=== PATIENT | female | born 1980 | race Hispanic/Latino ===

== ENCOUNTER 2019-02-11 09:26 | Emergency (ER) | payer MEDICAID, OTHER, SELFPAY ==
[2019-02-11 10:14] LABS: Absolute Lymphocytes (CBC) 0.8 K/uL (0.7-4.9); Basophils % 0.4 % (0-1.3); Eosinophils % 0.5 % (0-4.4); Hematocrit 35.1 % (36.0-45.0); Lymphocytes % 8.6 % (15.3-44.8); MPV 8.1 fL (7.6-11.3); Monocytes % 4.9 % (3.3-12.3); Protime INR 1.19; RBC Red Blood Cell Count 4.13 M/uL (3.86-4.86)
[2019-02-11] MEDS ORDERED: FENTANYL CITR 100 MCG/2 ML ONE (10:20)
[2019-02-11 10:28] LABS: BUN Blood Urea Nitrogen 9 mg/dL (7-18); Bicarbonate 29 mmol/L (21-32); Glucose Level 112 mg/dL (74-106); Potassium 3.5 mmol/L (3.5-5.1); Sodium Level 138 mmol/L (136-145)
--- NOTE | 2019-02-11 10:54 | RAD REPORT ---
EXAM DESCRIPTION: US - Extremity Venous Uni Ltd - 02/11/2019 10:36 am CLINICAL HISTORY: Leg pain and swelling COMPARISON: None. TECHNIQUE: Real-time sonographic evaluation of the left lower extremity deep venous system was perfo rmed. FINDINGS: Normal compressibility, flow augmentation, phasic flow and spontaneous flow are identified in the left lower extremity common femoral, superficial femoral, popliteal and posterior tibial vein s. No intraluminal filling defects seen. Prominent groin and upper thigh lymph nodes are present. In the anterior soft tissues tibial level th ere is a 4 x 2.5 x 2 centimeter heterogeneous mass. No trauma history was noted. This is probably a h ematoma. Abscess is not currently suspected. IMPRESSION: No DVT in the left lower extremity. A 4 centimeter oval heterogeneous hypoechoic mass anterior to the tibia is favored to be a hematoma. Correlation is needed with any trauma history or anticoagulation history. Abscess is not currently sylvester spected. Follow-up can be obtained as warranted.
[2019-02-11 12:49] LABS: Blood Morphology Comment NOT SEEN (NOT SEEN); Platelet Estimate ADEQ; Urine White Blood Cell Casts OK
[2019-02-11] MEDS ORDERED: CLINDAMYCIN 900MG/D5W 900 MG/50 ML IVPB IV ONE (13:42)
[2019-02-11 15:01] LABS: Urine Blood 2+ (NEG); Urine Glucose NEGATIVE (NEG); Urine Protein 2+ (NEG); Urine Specific Gravity 1.025 (1.005-1.030)
--- NOTE | 2019-02-11 15:16 | ER ---
Nurse's Notes [facility] [place] Name: Kandis Juan Age: 38 yrs Sex: Female : 1980 Arrival Date: 02/11/2019 Time: 09:33 Bed 7 Private MD: Diagnosis: Cellulitis of left lower limb;Localized swelling, mass and lump, left lower limb-hematoma Presentation: 02/11 09:34 Presenting complaint: EMS states: brought by [facility] with complaints of L leg pain hj and swelling, that started last Sunday; denies trauma, denies exposure to water and poison yordy; reports fever; BP- 102/72; HR-86; O2- 98% RA;. Transition of care: patient was not received from another setting of care. Onset of symptoms was February 11, 2019. Risk Assessment: Do you want to hurt yourself or someone else? Patient reports no desire to harm self or others. Initial Sepsis Screen: Does the patient meet any 2 criteria? No. Patient's initial sepsis screen is negative. Does the patient have a suspected source of infection? Yes: Skin breakdown/wound. Care prior to arrival: None. 09:34 Method Of Arrival: EMS: [facility] 09:34 Acuity: RONNY 3 hj Triage Assessment: 09:38 General: Appears in no apparent distress. uncomfortable, Behavior is calm, cooperative, hj appropriate for age. Pain: Complains of pain in left leg. 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 - Social history:: Smoking status: Patient uses tobacco products, Patient uses alcohol. - Ebola Screening: : Patient negative for fever greater than or equal to 101.5 degrees Fahrenheit, and additional compatible Ebola Virus Disease symptoms Patient denies exposure to infectious person Patient denies travel to an Ebola-affected area in the 21 days before illness onset. Screenin:38 Abuse screen: Denies threats or abuse. Denies injuries from another. Nutritional hj screening: No deficits noted. Tuberculosis screening: No symptoms or risk factors identified. Fall Risk None identified. Assessment: 09:39 General: Appears in no apparent distress. uncomfortable, Behavior is calm, cooperative, hj appropriate for age. Pain: Complains of pain in left leg. Neuro: Level of Consciousness is awake, alert, obeys commands, Oriented to person, place, time, situation, Appropriate for age. Cardiovascular: Capillary refill < 3 seconds Patient's skin is warm and dry. Respiratory: Airway is patent Respiratory effort is even, unlabored, Respiratory pattern is regular, symmetrical. GI: No signs and/or symptoms were reported involving the gastrointestinal system. : No signs and/or symptoms were reported regarding the genitourinary system. EENT: No signs and/or symptoms were reported regarding the EENT system. Derm: Skin is intact, Skin is pink, warm \T\ dry. red, Rash noted that is. Musculoskeletal: No signs and/or symptoms reported regarding the musculoskeletal system. 10:30 Reassessment: Patient and/or family updated on plan of care and expected duration. Pain hj level reassessed. Patient is alert, oriented x 3, equal unlabored respirations, skin warm/dry/pink. awaiting results and POC;. 11:30 Reassessment: Patient and/or family updated on plan of care and expected duration. Pain hj level reassessed. Patient is alert, oriented x 3, equal unlabored respirations, skin warm/dry/pink. Patient states feeling better. Patient states symptoms have improved. 12:30 Reassessment: Patient and/or family updated on plan of care and expected duration. Pain hj level reassessed. Patient is alert, oriented x 3, equal unlabored respirations, skin warm/dry/pink. awaiting POC;. 13:34 Reassessment: Patient and/or family updated on plan of care and expected duration. Pain hj level reassessed. Patient is alert, oriented x 3, equal unlabored respirations, skin warm/dry/pink. antibiotics on going; awaiting POC:. 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 6 in. (167.64 cm); Pain 7/10; 10:49 BP 110 / 72; Pulse 75; Resp 18; Pulse Ox 99% on R/A; hj 11:28 BP 112 / 70; Pulse 72; Resp 18; Pulse Ox 97% on R/A; hj 13:34 BP 118 / 70; Pulse 72; Resp 18; Pulse Ox 100% on R/A; hj 09:36 Body Mass Index 48.42 (136.08 kg, 167.64 cm) hj ED Course: 09:33 Patient arrived in ED. as 09:33 Adelfo Harvey, RN is Primary Nurse. hj 09:36 Triage completed. hj 09:37 Wellington Kern PA is PHCP. cp 09:37 Wellington Ren MD is Attending Physician. cp 09:38 Arm band placed on right wrist. hj 09:39 Patient has correct armband on for positive identification. Bed in low position. Call hj light in reach. Side rails up X 1. 10:00 Inserted saline lock: 22 gauge in right antecubital area, using aseptic technique. hj Blood collected. 10:00 Initial lab(s) drawn, by me, sent to lab. First set of blood cultures drawn by me. hj 13:43 Michele Sandoval MD is Referral Physician. cp 14:10 No provider procedures requiring assistance completed. IV discontinued, intact, hj bleeding controlled, No redness/swelling at site. Pressure dressing applied. Administered Medications: 10:00 Drug: fentaNYL (PF) 25 mcg Route: IVP; Site: right antecubital; hj 10:30 Follow up: Response: No adverse reaction; Pain is decreased hj 13:30 Drug: Clindamycin 900 mg Route: IVPB; Infused Over: 30 mins; Site: right antecubital; hj 14:05 Follow up: IV Status: Completed infusion; IV Intake: 50ml hj Intake: 14:05 IV: 50ml; Total: 50ml. hj Outcome: 13:44 Discharge ordered by . cp 14:11 Discharged to home ambulatory. hj 14:11 Condition: stable 14:11 Discharge instructions given to patient, Instructed on discharge instructions, follow up and referral plans. medication usage, Demonstrated understanding of instructions, follow-up care, medications, Prescriptions given X 4. 14:15 Patient left the ED. hj Signatures: ScottyElvira Henry RN RN hj Wellington Kern PA PA cp Corrections: (The following items were deleted from the chart) 09:39 09:36 BP 125 / 50; Pulse 90bpm; Resp 18bpm; Pulse Ox 98% RA; Temp 99.6F Oral; 136.08 hj kg; Height 5 ft. 6 in.; BMI: 48.4; Pain 7/10; hj
--- NOTE | 2019-02-11 15:16 | EDPHYS ---
Physician Documentation [facility] [place] Name: Kandis Juan Age: 38 yrs Sex: Female : 1980 Arrival Date: 02/11/2019 Time: 09:33 Bed 7 Private MD: ED Physician Wellington Ren HPI: 02/11 09:50 This 38 yrs old Female presents to ER via EMS with complaints of left leg pain.cp 09:50 The patient presents with pain, that is acute, swelling, tenderness. The complaints cp affect the left leg. Onset: The symptoms/episode began/occurred 3 day(s) ago. Associated signs and symptoms: Pertinent positives: calf tenderness, fever. Treatment prior to arrival includes: no previous treatment. 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 - Social history:: Smoking status: Patient uses tobacco products, Patient uses alcohol. - Ebola Screening: : Patient negative for fever greater than or equal to 101.5 degrees Fahrenheit, and additional compatible Ebola Virus Disease symptoms Patient denies exposure to infectious person Patient denies travel to an Ebola-affected area in the 21 days before illness onset. ROS: 10:00 Constitutional: Positive for low grade temp, Negative for body aches, chills, poor PO cp intake. 10:00 Eyes: Negative for injury, pain, redness, and discharge. cp 10:00 ENT: Negative for drainage from ear(s), ear pain, difficulty swallowing, difficulty handling secretions. 10:00 Cardiovascular: Negative for chest pain, palpitations. 10:00 Respiratory: Negative for cough, shortness of breath, wheezing. 10:00 Abdomen/GI: Negative for abdominal pain, nausea, vomiting, and diarrhea. 10:00 MS/extremity: Positive for erythema, pain, swelling, tenderness, of the left leg, Negative for injury or acute deformity, decreased range of motion, paresthesias. 10:00 Neuro: Negative for altered mental status, headache, weakness. 10:00 All other systems are negative. Exam: 10:10 Constitutional: The patient appears in no acute distress, alert, awake, cp non-diaphoretic, non-toxic, well developed, well nourished. 10:10 Head/Face: Normocephalic, atraumatic. cp 10:10 Eyes: Periorbital structures: appear normal, Conjunctiva: normal, no exudate, no injection, Sclera: no appreciated abnormality, Lids and lashes: appear normal, bilaterally. 10:10 ENT: External ear(s): are unremarkable, Nose: is normal, Mouth: Lips: moist, Oral mucosa: pink and intact, moist, Posterior pharynx: is normal, airway is patent. 10:10 Chest/axilla: Inspection: normal, Palpation: is normal, no crepitus, no tenderness. 10:10 Cardiovascular: Rate: normal, Rhythm: regular. 10:10 Respiratory: the patient does not display signs of respiratory distress, Respirations: normal, no use of accessory muscles, no retractions, no splinting, no tachypnea, labored breathing, is not present, Breath sounds: are clear throughout, no decreased breath sounds, no stridor, no wheezing. 10:10 Abdomen/GI: Inspection: abdomen appears normal. 10:10 Back: pain, is absent, ROM is normal. 10:10 Musculoskeletal/extremity: Perfusion: the extremity is normally perfused throughout, the left leg Sensation intact. DVT Exam: pain, that is moderate, of the left leg, swelling, that is mild, of the left leg, tenderness, that is moderate, of the left leg, erythema, that is moderate, of the left leg, increased warmth, that is moderate, of the left leg. 10:10 Neuro: Orientation: to person, place \T\ time. Mentation: is normal. Vital Signs: 09:36 BP 125 / 50; Pulse 85; Resp 18; Temp 99.6(O); Pulse Ox 98% on R/A; Weight 136.08 kg; hj Height 5 ft. 6 in. (167.64 cm); Pain 7/10; 10:49 BP 110 / 72; Pulse 75; Resp 18; Pulse Ox 99% on R/A; hj 11:28 BP 112 / 70; Pulse 72; Resp 18; Pulse Ox 97% on R/A; hj 13:34 BP 118 / 70; Pulse 72; Resp 18; Pulse Ox 100% on R/A; hj 09:36 Body Mass Index 48.42 (136.08 kg, 167.64 cm) hj MDM: 09:37 Patient medically screened. cp 10:00 Differential diagnosis: cellulitis, sepsis, DVT, abscess. cp 13:43 Data reviewed: vital signs, nurses notes, lab test result(s), radiologic studies, cp ultrasound. 13:43 Counseling: I had a detailed discussion with the patient and/or guardian regarding: the cp historical points, exam findings, and any diagnostic results supporting the discharge/admit diagnosis, lab results, radiology results, the need for outpatient follow up, a family practitioner, to return to the emergency department if symptoms worsen or persist or if there are any questions or concerns that arise at home. Response to treatment: the patient's symptoms have mildly improved after treatment, and as a result, I will discharge patient. 02/11 11:13 Order name: Procalcitonin; Complete Time: 13:04 [facility] 02/11 11:14 Order name: Basic Metabolic Panel [facility] 02/11 11:14 Order name: Lactate [facility] 02/11 11:14 Order name: CBC with Automated Diff; Complete Time: 13:04 [facility] 02/11 11:14 Order name: Protime (+INR) [facility] 02/11 11:14 Order name: Blood Culture [facility] 02/11 11:14 Order name: Blood Culture [facility] 02/11 12:53 Order name: CBC Smear Scan [facility] 02/11 09:47 Order name: US Extremity Venous Unilateral Ltd 02/11 09:47 Order name: Urine Dipstick-Ancillary (obtain specimen); Complete Time: 11:28 02/11 09:47 Order name: Urine Test (obtain specimen); Complete Time: 11:28 02/11 11:13 Order name: Extremity Venous Uni Ltd; Complete Time: 13:04 [facility] 02/11 13:20 Order name: Urine Dipstick--Ancillary (enter results) ms Administered Medications: 10:00 Drug: fentaNYL (PF) 25 mcg Route: IVP; Site: right antecubital; hj 10:30 Follow up: Response: No adverse reaction; Pain is decreased hj 13:30 Drug: Clindamycin 900 mg Route: IVPB; Infused Over: 30 mins; Site: right antecubital; hj 14:05 Follow up: IV Status: Completed infusion; IV Intake: 50ml hj Disposition: 02/11/19 13:44 Discharged to Home. Impression: Cellulitis of left lower limb, Localized swelling, mass and lump, left lower limb - hematoma. - Condition is Stable. - Discharge Instructions: Cellulitis, Adult, Hematoma. - Prescriptions for Clindamycin HCl 300 mg Oral Capsule - take 1 capsule by ORAL route every 6 hours for 10 days; 40 capsule. Ibuprofen 800 mg Oral Tablet - take 1 tablet by ORAL route every 8 hours As needed take with food; 30 tablet. Bactrim DS 800- 160 mg Oral Tablet - take 1 tablet by ORAL route every 12 hours for 10 days; 20 tablet. Tylenol- Codeine #3 300-30 mg Oral Tablet - take 2 tablets by ORAL route every 6 hours As needed; 15 tablet. - Medication Reconciliation Form, Thank You Letter, Antibiotic Education, Prescription Opioid Use form. - Follow up: Michele Sandoval MD; When: 2 - 3 days; Reason: Recheck today's complaints. - Problem is new. - Symptoms have improved. - Notes: Wrap with Kerlix and Craig Bandage, elevate extremity Addendum: 02/12/2019 16:34 Co-signature as Attending Physician, Wellington Ren MD I agree with the assessment and c retana plan of care. Signatures: Dispatcher [employer] Wellington Goldstein MD MD cha Joaquin, Henry, RN RN Wellington Rowan PA PA cp Corrections: (The following items were deleted from the chart) 02/11 12:35 11:15 CBC+H.LAB.BRZ ordered. [facility] 12:35 11:15 PROTIME (+INR)+COAG.LAB.BRZ ordered. [facility] 14:15 13:44 02/11/2019 13:44 Discharged to Home. Impression: Cellulitis of left lower limb; hj Localized swelling, mass and lump, left lower limb - hematoma. Condition is Stable. Forms are Medication Reconciliation Form, Thank You Letter, Antibiotic Education, Prescription Opioid Use. Follow up: Michele Sandoval; When: 2 - 3 days; Reason: Recheck today's complaints. Problem is new. Symptoms have improved. cp
== END 2019-02-11 14:15 | disposition home or self-care (01) ==
LOC: ER 09:26
DX: L03.116 Cellulitis of left lower limb (principal); S80.12XA Contusion of left lower leg, initial encounter; I10 Essential (primary) hypertension; Z72.0 Tobacco use
CPT/HCPCS: 36415; 80048; 81003; 83605; 84145; 85025; 85610; 87040; 93971; 96365; 96375; 99284; J3010

== ENCOUNTER 2019-02-15 13:31 | Emergency (ER) | payer SELFPAY ==
[2019-02-15 14:54] LABS: Absolute Lymphocytes (CBC) 1.9 K/uL (0.7-4.9); Basophils % 0.9 % (0-1.3); Eosinophils % 1.5 % (0-4.4); Hematocrit 33.6 % (36.0-45.0); Lymphocytes % 27.8 % (15.3-44.8); MPV 7.9 fL (7.6-11.3); Monocytes % 4.6 % (3.3-12.3); RBC Red Blood Cell Count 3.93 M/uL (3.86-4.86)
[2019-02-15 15:01] LABS: BUN Blood Urea Nitrogen 15 mg/dL (7-18); Bicarbonate 31 mmol/L (21-32); Glucose Level 81 mg/dL (74-106); Potassium 3.9 mmol/L (3.5-5.1); Sodium Level 141 mmol/L (136-145)
[2019-02-15 15:52] LABS: Blood Morphology Comment NOT SEEN (NOT SEEN); Platelet Estimate INCR; Urine White Blood Cell Casts OK
--- NOTE | 2019-02-15 16:19 | EDPHYS ---
Physician Documentation [facility] Name: Kandis Juan Age: 38 yrs Sex: Female : 1980 Arrival Date: 02/15/2019 Time: 13:33 Bed 26 Private MD: ED Physician Rubin Weir HPI: 02/15 14:52 This 38 yrs old Female presents to ER via Ambulatory with complaints of Feet rn Swelling. 14:52 The patient presents with cellulitis of the left leg. Description: erythematous, rn swollen. Onset: The symptoms/episode began/occurred 1 week(s) ago. Possible cause(s): unknown. Modifying factors: the symptoms are alleviated by nothing, the symptoms are aggravated by touching. The patient has not experienced similar symptoms in the past. The patient has been recently seen by a physician:. 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 - Social history:: Smoking status: . - Ebola Screening: : Patient denies travel to an Ebola-affected area in the 21 days before illness onset. - Family history:: not pertinent. - Hospitalizations: : No recent hospitalization is reported. ROS: 14:53 Constitutional: Negative for fever, chills, and weight loss, Eyes: Negative for injury, rn pain, redness, and discharge, Cardiovascular: Negative for chest pain, palpitations, and edema, Respiratory: Negative for shortness of breath, cough, wheezing, and pleuritic chest pain, Abdomen/GI: Negative for abdominal pain, nausea, vomiting, diarrhea, and constipation, MS/Extremity: Negative for injury Skin: + erythema and swelling Neuro: Negative for headache, weakness, numbness, tingling, and seizure. Exam: 14:53 Constitutional: Overweight female, no acute distress Head/Face: Normocephalic, rn atraumatic. Eyes: Pupils equal round and reactive to light, extra-ocular motions intact. Lids and lashes normal. Conjunctiva and sclera are non-icteric and not injected. Cornea within normal limits. Periorbital areas with no swelling, redness, or edema. ENT: MMM Cardiovascular: Regular rate and rhythm. No pulse deficits. Respiratory: No increased work of breathing, no retractions or nasal flaring. Abdomen/GI: soft, non-tender Skin: Warm, dry, + erythema to LLE MS/ Extremity: Pulses equal, no cyanosis. LLE with swelling and increased circumference compared to RLE, areas of erythema and firmness, no fluctuance. No open wounds or bleeding. Vital Signs: 13:37 BP 109 / 68; Pulse 73; Resp 17; Temp 97.8(TE); Pulse Ox 98% on R/A; Weight 136.08 kg tw2 (R); Height 5 ft. 6 in. (167.64 cm); Pain 3/10; 16:15 BP 128 / 87; Pulse 74; Resp 16; Pulse Ox 98% on R/A; la1 13:37 Body Mass Index 48.42 (136.08 kg, 167.64 cm) tw2 MDM: 14:03 Patient medically screened. rn 16:16 Differential diagnosis: cellulitis. Data reviewed: vital signs, nurses notes, lab test rn result(s), radiologic studies, ultrasound, and as a result, I will discharge patient. Counseling: I had a detailed discussion with the patient and/or guardian regarding: the historical points, exam findings, and any diagnostic results supporting the discharge/admit diagnosis, lab results, radiology results, the need for outpatient follow up, to return to the emergency department if symptoms worsen or persist or if there are any questions or concerns that arise at home. Special discussion: I discussed with the patient/guardian in detail that at this point there is no indication for admission to the hospital. It is understood, however, that if the symptoms persist or worsen the patient needs to return immediately for re-evaluation. Based on the history and exam findings, there is no indication for further emergent testing or inpatient evaluation. I discussed with the patient/guardian the need to see the primary care provider for further evaluation of the symptoms. ED course: U/S shows smaller fluid collection, no abscess, afebrile, normal WBC, neg procalcitonin, normal vitals, will dc home with bactrim/doxy, both on $4 list and attainable, hard to call failure of outpt therapy if did not fill prescription in first place. . 07/13 14:25 Order name: CBC with Diff; Complete Time: 15:57 rn 02/15 14:25 Order name: Basic Metabolic Panel; Complete Time: 15:42 rn 02/15 14:25 Order name: Blood Culture Adult (2) rn 02/15 14:25 Order name: Procalcitonin; Complete Time: 15:42 rn 02/15 14:26 Order name: US Extrmty Nonvasular Limited rn 02/15 15:52 Order name: CBC Smear Scan; Complete Time: 15:57 EDMS 02/15 14:25 Order name: IV Start; Complete Time: 14:51 rn Administered Medications: 16:20 Drug: Bactrim (160 mg-800 mg (DS) 1 tablet Route: PO; la1 16:20 Follow up: Response: Medication administered at discharge. la1 16:20 Drug: Doxycycline 100 mg Route: PO; la1 16:20 Follow up: Response: Medication administered at discharge. la1 Disposition: 02/15/19 16:18 Discharged to Home. Impression: Cellulitis of left lower limb. - Condition is Stable. - Discharge Instructions: Cellulitis, Adult. - Prescriptions for Bactrim DS 800- 160 mg Oral Tablet - take 1 tablet by ORAL route every 12 hours for 10 days; 20 tablet. Doxycycline Monohydrate 100 mg Oral Tablet - take 1 tablet by ORAL route every 12 hours for 10 days; 20 tablet. - Medication Reconciliation Form, Thank You Letter, Antibiotic Education, Prescription Opioid Use form. - Follow up: Private Physician; When: As needed; Reason: Recheck today's complaints, Re-evaluation by your physician. - Problem is an ongoing problem. - Symptoms have improved. Signatures: Dispatcher [employer] EDTX Rubin Weir MD MD rn Attema, Lee, RN RN la1 Mei Gould RN RN tw2 Corrections: (The following items were deleted from the chart) 16:22 16:18 02/15/2019 16:18 Discharged to Home. Impression: Cellulitis of left lower limb. la1 Condition is Stable. Forms are Medication Reconciliation Form, Thank You Letter, Antibiotic Education, Prescription Opioid Use. Follow up: Private Physician; When: As needed; Reason: Recheck today's complaints, Re-evaluation by your physician. Problem is an ongoing problem. Symptoms have improved. rn
--- NOTE | 2019-02-15 16:19 | ER ---
Nurse's Notes [facility] Name: Kandis Juan Age: 38 yrs Sex: Female : 1980 Arrival Date: 02/15/2019 Time: 13:33 Bed 26 Private MD: Diagnosis: Cellulitis of left lower limb Presentation: 02/15 13:36 Presenting complaint: Patient states: i was here 5 days ago and i had cellulitis on my tw2 LEFT foot and the pharmacy [place], there is redness up my calf. Transition of care: patient was not received from another setting of care. Onset of symptoms was February 15, 2019. Risk Assessment: Do you want to hurt yourself or someone else? Patient reports no desire to harm self or others. Initial Sepsis Screen: Does the patient meet any 2 criteria? No. Patient's initial sepsis screen is negative. Does the patient have a suspected source of infection? No. Patient's initial sepsis screen is negative. Care prior to arrival: None. 13:36 Method Of Arrival: Ambulatory tw2 13:36 Acuity: RONNY 3 tw2 Triage Assessment: 13:38 General: Appears in no apparent distress. obese, Behavior is calm, cooperative, tw2 appropriate for age. Pain: Complains of pain in left foot. 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 - Social history:: Smoking status: . - Ebola Screening: : Patient denies travel to an Ebola-affected area in the 21 days before illness onset. - Family history:: not pertinent. - Hospitalizations: : No recent hospitalization is reported. Screenin:38 Abuse screen: Denies threats or abuse. Nutritional screening: No deficits noted. tw2 Tuberculosis screening: No symptoms or risk factors identified. Fall Risk None identified. Assessment: 14:01 General: Appears in no apparent distress. Behavior is calm, cooperative. Pain: la1 Complains of pain in left leg. Neuro: Level of Consciousness is awake, alert, obeys commands, Oriented to person, place, time, situation. Cardiovascular: Capillary refill < 3 seconds Patient's skin is warm and dry. Respiratory: Airway is patent Respiratory effort is even, unlabored, Respiratory pattern is regular, symmetrical, Breath sounds are clear bilaterally. GI: No signs and/or symptoms were reported involving the gastrointestinal system. : No signs and/or symptoms were reported regarding the genitourinary system. Derm: cellulitic rash and swelling to left lower extremity does not extend above the knee, worse in the posterior calf area. Pt states she has not gotten any of her RX filled because they do not take her out of state medicaid but only checked at one pharmacy. Musculoskeletal: Circulation, motion, and sensation intact. Capillary refill < 3 seconds, Swelling present in lateral aspect of left calf, left calf, medial aspect of left calf and left aparicio. 15:46 Reassessment: Patient appears in no apparent distress at this time. No changes from la1 previously documented assessment. Patient and/or family updated on plan of care and expected duration. Pain level reassessed. Patient is alert, oriented x 3, equal unlabored respirations, skin warm/dry/pink. 16:15 Reassessment: Patient appears in no apparent distress at this time. No changes from la1 previously documented assessment. Patient and/or family updated on plan of care and expected duration. Pain level reassessed. Patient is alert, oriented x 3, equal unlabored respirations, skin warm/dry/pink. Vital Signs: 13:37 BP 109 / 68; Pulse 73; Resp 17; Temp 97.8(TE); Pulse Ox 98% on R/A; Weight 136.08 kg tw2 (R); Height 5 ft. 6 in. (167.64 cm); Pain 3/10; 16:15 BP 128 / 87; Pulse 74; Resp 16; Pulse Ox 98% on R/A; la1 13:37 Body Mass Index 48.42 (136.08 kg, 167.64 cm) tw2 ED Course: 13:33 Patient arrived in ED. as 13:37 Triage completed. tw2 13:37 Arm band placed on. tw2 13:39 Anton Kendall RN is Primary Nurse. la1 14:03 Rubin Weir MD is Attending Physician. rn 14:03 Placed in gown. Bed in low position. Call light in reach. la1 15:00 Second set of blood cultures drawn by me. lt1 15:20 Ultrasound completed. Patient tolerated well. Notified ED Physician latisha. sg3 15:47 US Extrmty Nonvasular Limited In Process Unspecified. EDMS 16:15 No provider procedures requiring assistance completed. IV discontinued, intact, la1 bleeding controlled, No redness/swelling at site. Pressure dressing applied. Administered Medications: 16:20 Drug: Bactrim (160 mg-800 mg (DS) 1 tablet Route: PO; la1 16:20 Follow up: Response: Medication administered at discharge. la1 16:20 Drug: Doxycycline 100 mg Route: PO; la1 16:20 Follow up: Response: Medication administered at discharge. la1 Outcome: 16:18 Discharge ordered by MD. rn 16:22 Discharged to home ambulatory. la1 16:22 Condition: stable 16:22 Discharge instructions given to patient, Instructed on discharge instructions, follow up and referral plans. medication usage, Demonstrated understanding of instructions, follow-up care, medications, Prescriptions given X 2. 16:22 Patient left the ED. la1 Signatures: Dispatcher [employer] Elvira Antonio Roman, MD MD rn Attema, Lee RN RN la1 Mei Gould RN RN tw2 Meghana Montes sg3 Valeria Cardenas lt1 Corrections: (The following items were deleted from the chart) 13:39 13:36 Presenting complaint: Patient states: i was here 5 days ago and i had cellulitis tw2 on my LEFT foot and the pharmacy wouldn't [place] tw2
[2019-02-15] MEDS ORDERED: SMZ./TMP. 800/160 MG TABLET ONE (16:34)
[2019-02-15] MEDS ORDERED: DOXYCYCLINE 100 MG CAP PO ONE (16:34)
--- NOTE | 2019-02-15 16:41 | RAD REPORT ---
EXAM DESCRIPTION: US - Extremity Nonvascular Limited - 02/15/2019 3:47 pm CLINICAL HISTORY: LLE swelling, firm, eval for abscess COMPARISON: Extremity Venous Uni Ltd dated 02/11/2019 TECHNIQUE: Real-time sonographic evaluation of the area of interest was performed. FINDINGS: Complex, heterogenous subcutaneous lesion is identified anterior to the tibia the lower le g measuring 2.7 x 1.7 cm. This appears slightly decreased since the comparative study which time it m easured 4.3 x 1.4 x 2.6 cm. Primary differential considerations include focal hematoma and abscess. H ematoma is favored given the well demarcated margins and mild diminishment in size, however sonograph y cannot reliably distinguish the two entities.
== END 2019-02-15 16:22 | disposition home or self-care (01) ==
LOC: ER 13:31
DX: L03.116 Cellulitis of left lower limb (principal); I10 Essential (primary) hypertension
CPT/HCPCS: 36415; 76882; 80048; 84145; 85025; 87040; 99284

== ENCOUNTER 2019-12-16 11:16 | Emergency (ER) | payer SELFPAY ==
[2019-12-16] MEDS ORDERED: MORPHINE 4 MG/ML SYR ONE (13:26)
[2019-12-16] MEDS ORDERED: ONDANSETRON 4 MG/2 ML VIAL ONE (13:27)
[2019-12-16 13:42] LABS: Absolute Lymphocytes (CBC) 1.1 K/uL (0.7-4.9); Basophils % 0.8 % (0-1.3); Hematocrit 37.6 % (36.0-45.0); Lymphocytes % 15.4 % (15.3-44.8); MPV 8.8 fL (7.6-11.3); RBC Red Blood Cell Count 4.36 M/uL (3.86-4.86)
[2019-12-16 13:55] LABS: Urine Blood 3+ (NEG); Urine Glucose NEGATIVE (NEG); Urine Protein 3+ (NEG); Urine Specific Gravity 1.015 (1.005-1.030); Urine pH >8.5 (5.0-7.0)
[2019-12-16 13:57] LABS: Albumin 3.8 g/dL (3.4-5.0); Bilirubin Direct 0.1 mg/dL (0-0.2); Bilirubin Total 0.3 mg/dL (0.2-1.0); Potassium 3.6 mmol/L (3.5-5.1); Protein, Total 8.3 g/dL (6.4-8.2)
--- NOTE | 2019-12-16 14:11 | RAD REPORT ---
EXAM DESCRIPTION: CT - Abdomen Pelvis W Contrast - 12/16/2019 1:52 pm CLINICAL HISTORY: ABD PAIN COMPARISON: CT HEAD SPINE CAP W CONTRAST dated 09/10/2010 TECHNIQUE: Biphasic, helical CT imaging of the abdomen and pelvis was performed following 100 ml non -ionic IV contrast. No oral contrast. All CT scans are performed using dose optimization technique as appropriate and may include automated exposure control or mA/KV adjustment according to patient size. FINDINGS: No suspicious findings in the lung bases. No pericardial thickening or effusion. Liver size is normal. Posterior mid right lobe a 14 millimeter round hypoechoic focus is present. Thi s is not clearly a simple cyst. This finding is not clearly seen on the 2010 study; however, the prot ocol for the prior study does not allow for optimal assessment of liver parenchyma. No other focal li yandy finding. No portal vein abnormality. Splenic size is normal with no focal splenic abnormality. Ac cessory splenic nodule seen. No pancreatic or peripancreatic acute finding. Gallbladder and biliary t ree are also without suspicious finding. Gallstones can be occult on CT imaging. Symmetric renal function is seen with no hydronephrosis or suspicious renal mass. No pyelonephritis o r acute parenchymal process. Urinary bladder is nearly fully collapsed limiting assessment. No large bladder calculi seen. No adrenal abnormalities. Uterus and ovaries show no suspicious findings. No dilated bowel loops or bowel wall thickening. Minimal diverticulosis present in the sigmoid colon. No diverticulitis, appendicitis or other acute GI process seen. No free air, free fluid or inflammat ory stranding. No hernia, mass or bulky lymphadenopathy. No acute bony findings. Schmorl's nodes are seen in the L2 and L4 bodies. Disc space narrowing seen a t the upper 3 lumbar levels. IMPRESSION: Contrast enhanced CT abdomen and pelvis showing no acute or emergent finding. A 14 millimeter round hypoechoic focus in the posterior right lobe is present. This was not seen on t 2010 CT study which was not an optimal comparison. Finding is nonspecific. Minimally complex cyst would be most common. Adenoma or focal nodular hyperpl jeb possible. Long-term significance is doubtful. A nonemergent outpatient follow-up liver ultrasoun d could be performed for correlation.
--- NOTE | 2019-12-16 15:32 | EDPHYS ---
Physician Documentation [facility] Name: Kandis Juan Age: 39 yrs Sex: Female : 1980 Arrival Date: 12/16/2019 Time: 11:17 Bed 13 Private MD: ED Physician Wellington Ren HPI: 12/15 12:54 This 39 yrs old Female presents to ER via Ambulatory with complaints of Kidney jmm Problem. 12:54 The patient presents with pain that is acute. Onset: The symptoms/episode jmm began/occurred gradually, 3 day(s) ago. The pain does not radiate. Associated signs and symptoms: Pertinent positives: abdominal pain, dysuria, nausea. Modifying factors: The patient symptoms are alleviated by nothing, the patient symptoms are aggravated by any movement. 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 - Social history:: Smoking status: Patient reports the use of cigarette tobacco products, smokes one-half pack cigarettes per day. ROS: 11:53 Constitutional: Negative for fever, chills, and weight loss, Cardiovascular: Negative jmm for chest pain, palpitations, and edema, Respiratory: Negative for shortness of breath, cough, wheezing, and pleuritic chest pain. 11:53 Abdomen/GI: Positive for abdominal pain, nausea and vomiting, diarrhea. 11:53 Back: Positive for pain with movement, flank pain. 11:53 All other systems are negative. Exam: 11:53 Head/Face: atraumatic. Eyes: EOMI, no conjunctival erythema appreciated ENT: Moist jmm Mucus Membranes Neck: Trachea midline, Supple Chest/axilla: Normal chest wall appearance and motion. Cardiovascular: Regular rate and rhythm. No edema appreciated Respiratory: Normal respirations, no respiratory distress appreciated 11:53 Constitutional: The patient appears alert, awake, uncomfortable. 11:53 Abdomen/GI: Inspection: abdomen appears normal, Bowel sounds: normal, Palpation: abdomen is soft and non-tender, in all quadrants. 11:53 Back: CVA tenderness, that is moderate, is noted bilaterally. 11:53 Musculoskeletal/extremity: ROM: intact in all extremities. 11:53 Skin: Appearance: Color: normal in color. 11:53 Neuro: Orientation: is normal, Mentation: is normal, Memory: is normal, Motor: is normal. 11:53 Psych: Behavior/mood is pleasant, cooperative. Vital Signs: 11:50 BP 155 / 82; Pulse 84; Resp 16 S; Temp 98.4(O); Pulse Ox 100% on R/A; Weight 142.88 kg ca1 (R); Height 5 ft. 7 in. (170.18 cm) (R); Pain 9/10; 12:00 BP 137 / 113; Pulse 87; Resp 19; Pulse Ox 100% ; bp 14:00 BP 111 / 53; Pulse 72; Resp 16; Pulse Ox 95% ; bp 15:44 BP 130 / 72; Pulse 65; Resp 17; Temp 98.5; Pulse Ox 98% ; bp 11:50 Body Mass Index 49.34 (142.88 kg, 170.18 cm) ca1 MDM: 13:01 Patient medically screened. kahlil 15:29 Data reviewed: vital signs, nurses notes. Counseling: I had a detailed discussion with [facility] the patient and/or guardian regarding: the historical points, exam findings, and any diagnostic results supporting the discharge/admit diagnosis, lab results, radiology results, the need for outpatient follow up, to return to the emergency department if symptoms worsen or persist or if there are any questions or concerns that arise at home. ED course: CT imaging findings discussed with the patient along with the need for reevaluation of the liver cyst. Patient's pain has decreased in the ED. Pain most likely musculoskeletal. Patient is advised to follow up with pcp and otherwise given strict return precautions. Patient understood and agrees with the plan of care. . 05 12:54 Order name: Basic Metabolic Panel; Complete Time: 14:28 [facility] 12/15 12:54 Order name: CBC with Diff; Complete Time: 13:53 [facility] 12/15 12:54 Order name: Creatinine for Radiology [facility] 12/15 12:54 Order name: Hepatic Function; Complete Time: 14:28 [facility] 12/15 12:54 Order name: Lipase; Complete Time: 14:28 [facility] 12/15 13:44 Order name: Urine Dipstick--Ancillary (enter results); Complete Time: 14:28 12/15 12:54 Order name: IV Saline Lock; Complete Time: 14:11 [facility] 12/15 12:54 Order name: Labs collected and sent; Complete Time: 13:38 [facility] 12/15 12:54 Order name: Urine Dipstick-Ancillary (obtain specimen); Complete Time: 13:36 [facility] 12/15 13:16 Order name: CT Abd/Pelvis - IV Contrast Only; Complete Time: 14:28 [facility] 12/15 13:44 Order name: Urine --Ancillary (enter results); Complete Time: 14:28 12/15 14:00 Order name: CREATININE WHOLE BLOOD; Complete Time: 14:28 [facility] 12/15 12:55 Order name: Urine Test (obtain specimen); Complete Time: 13:36 [facility] Administered Medications: 13:20 Drug: morphine 4 mg Route: IVP; Site: right forearm; bp 15:54 Follow up: Response: No adverse reaction bp 13:20 Drug: Zofran (Ondansetron) 4 mg Route: IVP; Site: right forearm; bp 15:58 Follow up: Response: No adverse reaction; Adverse reaction, Physician notified bp Disposition: 15:29 Chart complete. Chart complete. [facility] 12/16 09:40 Co-signature as Attending Physician, Wellington Ren MD I agree with the assessment and kahlil plan of care. Disposition: 12/16/19 15:31 Discharged to Home. Impression: Urinary tract infection, site not specified, Low back pain. - Condition is Stable. - Discharge Instructions: Back Pain, Adult, Urinary Tract Infection, Adult. - Prescriptions for Cephalexin 500 mg Oral Capsule - take 1 capsule by ORAL route every 12 hours for 10 days; 20 capsule. orphenadrine citrate 100 mg Oral Tablet Sustained Release - take 1 tablet by ORAL route 2 times per day As needed; 20 tablet. - Medication Reconciliation Form, Thank You Letter, Antibiotic Education, Prescription Opioid Use form. - Follow up: Private Physician; When: 2 - 3 days; Reason: Recheck today's complaints, Continuance of care, Re-evaluation by your physician. Signatures: Dispatcher [employer] Wellington Goldstein MD MD cha Mickail, Joel, PA PA [facility] Jeferson Ayala RN RN bp Betty Fulton RN RN ca1 Corrections: (The following items were deleted from the chart) 12/15 16:15 15:31 12/16/2019 15:31 Discharged to Home. Impression: Urinary tract infection, site bp not specified; Low back pain. Condition is Stable. Forms are Medication Reconciliation Form, Thank You Letter, Antibiotic Education, Prescription Opioid Use. Follow up: Private Physician; When: 2 - 3 days; Reason: Recheck today's complaints, Continuance of care, Re-evaluation by your physician. thanh
--- NOTE | 2019-12-16 15:32 | ER ---
Nurse's Notes [facility] Name: Kandis Juan Age: 39 yrs Sex: Female : 1980 Arrival Date: 12/16/2019 Time: 11:17 Bed 13 Private MD: Diagnosis: Urinary tract infection, site not specified;Low back pain Presentation: 12/15 11:50 Chief complaint: Patient states: Bilateral flank pain x 3 days ago, aggravated by ca1 eating and drinking. Reports N/V/diarrhea. Coronavirus screen: Proceed with normal triage. Patient denies a cough. Patient denies shortness of breath or difficulty breathing. Patient denies measured and/or subjective temperature greater than 100.4F prior to today's visit. Patient denies travel on a cruise ship or to a country the [facility] currently lists as an affected area. Patient denies contact with known and/or suspected case of COVID-19. Ebola Screen: Patient negative for fever greater than or equal to 101.5 degrees Fahrenheit, and additional compatible Ebola Virus Disease symptoms Patient denies exposure to infectious person. Patient denies travel to an Ebola-affected area in the 21 days before illness onset. No symptoms or risks identified at this time. Initial Sepsis Screen: Does the patient meet any 2 criteria? No. Patient's initial sepsis screen is negative. Does the patient have a suspected source of infection? No. Patient's initial sepsis screen is negative. Risk Assessment: Do you want to hurt yourself or someone else? Patient reports no desire to harm self or others. Onset of symptoms was December 16, 2019. 11:50 Method Of Arrival: Ambulatory ca1 11:50 Acuity: RONNY 3 ca1 Triage Assessment: 12:00 General: Appears in no apparent distress. comfortable, obese, Behavior is cooperative, bp appropriate for age, anxious. Pain: Complains of pain in back. EENT: No deficits noted. Neuro: No deficits noted. Cardiovascular: No deficits noted. Respiratory: No deficits noted. GI: Reports nausea. : No signs and/or symptoms were reported regarding the genitourinary system. Derm: No deficits noted. Musculoskeletal: No deficits noted. 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 - Social history:: Smoking status: Patient reports the use of cigarette tobacco products, smokes one-half pack cigarettes per day. Screenin:00 Abuse screen: Denies threats or abuse. Denies injuries from another. Nutritional bp screening: No deficits noted. Tuberculosis screening: No symptoms or risk factors identified. Fall Risk None identified. Assessment: 12:00 General: SEE TRIAGE NOTE. bp 14:00 Reassessment: ALL CURRENT ORDERS COMPLETED, DISPO PENDING. bp 15:50 Reassessment: PT D/C HOME AMBULATORY, DX WITH UTI. bp Vital Signs: 11:50 BP 155 / 82; Pulse 84; Resp 16 S; Temp 98.4(O); Pulse Ox 100% on R/A; Weight 142.88 kg ca1 (R); Height 5 ft. 7 in. (170.18 cm) (R); Pain 9/10; 12:00 BP 137 / 113; Pulse 87; Resp 19; Pulse Ox 100% ; bp 14:00 BP 111 / 53; Pulse 72; Resp 16; Pulse Ox 95% ; bp 15:44 BP 130 / 72; Pulse 65; Resp 17; Temp 98.5; Pulse Ox 98% ; bp 11:50 Body Mass Index 49.34 (142.88 kg, 170.18 cm) ca1 ED Course: 11:17 Patient arrived in ED. ag5 11:52 Triage completed. ca1 11:53 Arm band placed on right wrist. ca1 12:00 Patient has correct armband on for positive identification. Bed in low position. Call bp light in reach. Side rails up X2. 12:52 Mike Palma PA is PHCP. jmm 12:52 Wellington Ren MD is Attending Physician. jmm 13:03 Jeferson Ayala, PING is Primary Nurse. bp 13:20 Inserted saline lock: 20 gauge in right forearm, using aseptic technique. Blood bp collected. 13:52 CT Abd/Pelvis - IV Contrast Only In Process Unspecified. EDMS 14:23 Creatinine for Radiology Sent. bp 15:50 No provider procedures requiring assistance completed. IV discontinued, intact, bp bleeding controlled, No redness/swelling at site. Pressure dressing applied. Administered Medications: 13:20 Drug: morphine 4 mg Route: IVP; Site: right forearm; bp 15:54 Follow up: Response: No adverse reaction bp 13:20 Drug: Zofran (Ondansetron) 4 mg Route: IVP; Site: right forearm; bp 15:58 Follow up: Response: No adverse reaction; Adverse reaction, Physician notified bp Outcome: 15:31 Discharge ordered by MD. law 15:50 Discharged to home ambulatory. bp 15:50 Condition: stable 15:50 Discharge instructions given to patient, Instructed on discharge instructions, follow up and referral plans. medication usage, Demonstrated understanding of instructions, follow-up care, medications, Prescriptions given X 2. 16:15 Patient left the ED. bp Signatures: Dispatcher [employer] EDMS Mike Palma PA PA jmm Peltier, Brian, RN RN Betty Goode RN RN [facility]
[2019-12-16 16:32] VITALS: BP 130/72; TEMP 98.5; O2SAT 98
== END 2019-12-16 16:15 | disposition home or self-care (01) ==
LOC: ER 11:16
DX: N39.0 Urinary tract infection, site not specified (principal); F17.210 Nicotine dependence, cigarettes, uncomplicated; I10 Essential (primary) hypertension
CPT/HCPCS: 36415; 74177; 80048; 80076; 81003; 81025; 82565; 83690; 85025; 96374; 96375; 99284; J2405; Q9967

== ENCOUNTER 2020-02-21 18:04 | Emergency (ER) | payer SELFPAY ==
--- NOTE | 2020-02-21 19:00 | ER ---
Nurse's Notes [facility] Name: Kandis Juan Age: 39 yrs Sex: Female : 1980 Arrival Date: 02/21/2020 Time: 18:11 Bed 11 Private MD: Diagnosis: Otitis media, unspecified, left ear Presentation: 02/20 18:22 Chief complaint: Patient states: left ear pain x 2 weeks. Coronavirus screen: Patient sv denies a cough. Patient denies shortness of breath or difficulty breathing. Patient denies measured and/or subjective temperature greater than 100.4F prior to today's visit. Patient denies travel on a cruise ship or to a country the [facility] currently lists as an affected area. Patient denies contact with known and/or suspected case of COVID-19. Proceed with normal triage. Ebola Screen: No symptoms or risks identified at this time. Risk Assessment: Do you want to hurt yourself or someone else? Patient reports no desire to harm self or others. Onset of symptoms was February 07, 2020. 18:22 Method Of Arrival: Ambulatory sv 18:22 Acuity: RONNY 5 sv 18:25 Initial Sepsis Screen: Does the patient meet any 2 criteria? No. Patient's initial sv sepsis screen is negative. Does the patient have a suspected source of infection? No. Patient's initial sepsis screen is negative. Historical: - Allergies: 18:23 No Known Allergies; sv - PMHx: 18:23 Bipolar disorder; Hypertension; sv - PSHx: 18:23 ; sv - Immunization history:: Adult Immunizations. - Social history:: Smoking status: Patient reports the use of cigarette tobacco products, denies chronic smoking, but will smoke occasionally. - Family history:: not pertinent. Screenin:58 Abuse screen: Denies threats or abuse. Denies injuries from another. Nutritional ss screening: No deficits noted. Tuberculosis screening: Never had TB. Fall Risk None identified. Assessment: 18:58 General: Appears in no apparent distress. comfortable, Behavior is calm, cooperative, ss Denies fever, feeling ill, fatigue, chills. Pain: Complains of pain in left ear Quality of pain is described as aching, Pain began x 2 weeks Is continuous. Neuro: Level of Consciousness is awake, alert, obeys commands, Oriented to person, place, time, situation. Respiratory: Airway is patent Respiratory effort is even, unlabored, Respiratory pattern is regular, symmetrical. EENT: Oral mucosa is moist. Derm: Skin is intact, is healthy with good turgor, Skin is pink, warm \T\ dry. normal. Musculoskeletal: Circulation, motion, and sensation intact. Range of motion: intact in all extremities, Swelling absent. Vital Signs: 18:25 BP 117 / 67; Pulse 78; Resp 16; Temp 97.9; Pulse Ox 99% ; Weight 140.61 kg; Height 5 sv ft. 6 in. (167.64 cm); 18:25 Body Mass Index 50.03 (140.61 kg, 167.64 cm) sv ED Course: 18:11 Patient arrived in ED. bp1 18:22 Triage completed. sv 18:23 Arm band placed on. sv 18:38 Wellington Ren MD is Attending Physician. kahlil 18:58 Paula Stallings RN is Primary Nurse. ss 18:58 Patient has correct armband on for positive identification. Bed in low position. Call ss light in reach. 18:58 No provider procedures requiring assistance completed. Patient did not have IV access ss during this emergency room visit. 18:59 Joe Harper MD is Referral Physician. [facility] Administered Medications: No medications were administered Outcome: 18:59 Discharge ordered by . [facility] 19:29 Discharged to home ambulatory, with family. ss 19:29 Condition: good 19:29 Discharge instructions given to patient, Instructed on discharge instructions, follow up and referral plans. medication usage, Demonstrated understanding of instructions, follow-up care, medications, Prescriptions given X 3. 19:30 Patient left the ED. ss Signatures: Claudia Sanders RN PING Wellington Ren MD MD cha Smirch, Shelby, RN RN Emilia Madrigal bp1 Corrections: (The following items were deleted from the chart) 18:29 18:25 Resp 16bpm; Pulse Ox 99%; 140.61 kg; Height 5 ft. 6 in.; BMI: 50.0; sv sv
--- NOTE | 2020-02-21 19:00 | EDPHYS ---
Physician Documentation [facility] Name: Kandis Juan Age: 39 yrs Sex: Female : 1980 Arrival Date: 02/21/2020 Time: 18:11 Bed 11 Private MD: ED Physician Wellington Ren HPI: 02/20 18:52 This 39 yrs old Female presents to ER via Ambulatory with complaints of Ear kahlil Pain. 18:52 The patient presents with pain. The complaints affect the left ear. Onset: The kahlil symptoms/episode began/occurred 14 day(s) ago. Modifying factors: The symptoms are alleviated by nothing, the symptoms are aggravated by nothing. Associated signs and symptoms: The patient has no apparent associated signs or symptoms. Severity of symptoms: At their worst the symptoms were mild in the emergency department the symptoms are unchanged. The patient has not experienced similar symptoms in the past. Historical: - Allergies: 18:23 No Known Allergies; sv - PMHx: 18:23 Bipolar disorder; Hypertension; sv - PSHx: 18:23 ; sv - Immunization history:: Adult Immunizations. - Social history:: Smoking status: Patient reports the use of cigarette tobacco products, denies chronic smoking, but will smoke occasionally. - Family history:: not pertinent. ROS: 18:52 Constitutional: Negative for fever, chills, and weight loss, Eyes: Negative for injury, kahlil pain, redness, and discharge, Neck: Negative for injury, pain, and swelling, Cardiovascular: Negative for chest pain, palpitations, and edema, Respiratory: Negative for shortness of breath, cough, wheezing, and pleuritic chest pain, Abdomen/GI: Negative for abdominal pain, nausea, vomiting, diarrhea, and constipation, Back: Negative for injury and pain, : Negative for injury, bleeding, discharge, and swelling, MS/Extremity: Negative for injury and deformity, Skin: Negative for injury, rash, and discoloration, Neuro: Negative for headache, weakness, numbness, tingling, and seizure, Psych: Negative for depression, anxiety, suicide ideation, homicidal ideation, and hallucinations, Allergy/Immunology: Negative for hives, rash, and allergies, Endocrine: Negative for neck swelling, polydipsia, polyuria, polyphagia, and marked weight changes, Hematologic/Lymphatic: Negative for swollen nodes, abnormal bleeding, and unusual bruising. 18:52 ENT: Positive for pulling at ears. Exam: 18:52 Constitutional: This is a well developed, well nourished patient who is awake, alert, kahlil and in no acute distress. Head/Face: Normocephalic, atraumatic. Eyes: Pupils equal round and reactive to light, extra-ocular motions intact. Lids and lashes normal. Conjunctiva and sclera are non-icteric and not injected. Cornea within normal limits. Periorbital areas with no swelling, redness, or edema. ENT: Nares patent. No nasal discharge, no septal abnormalities noted. Tympanic membranes are normal and external auditory canals are clear. Oropharynx with no redness, swelling, or masses, exudates, or evidence of obstruction, uvula midline. Mucous membranes moist. Neck: Trachea midline, no thyromegaly or masses palpated, and no cervical lymphadenopathy. Supple, full range of motion without nuchal rigidity, or vertebral point tenderness. No Meningismus. Chest/axilla: Normal chest wall appearance and motion. Nontender with no deformity. No lesions are appreciated. Cardiovascular: Regular rate and rhythm with a normal S1 and S2. No gallops, murmurs, or rubs. Normal PMI, no JVD. No pulse deficits. Respiratory: Lungs have equal breath sounds bilaterally, clear to auscultation and percussion. No rales, rhonchi or wheezes noted. No increased work of breathing, no retractions or nasal flaring. Back: No spinal tenderness. No costovertebral tenderness. Full range of motion. Skin: Warm, dry with normal turgor. Normal color with no rashes, no lesions, and no evidence of cellulitis. MS/ Extremity: Pulses equal, no cyanosis. Neurovascular intact. Full, normal range of motion. Neuro: Awake and alert, GCS 15, oriented to person, place, time, and situation. Cranial nerves II-XII grossly intact. Motor strength 5/5 in all extremities. Sensory grossly intact. Cerebellar exam normal. Normal gait. 18:56 Abdomen/GI: Soft, non-tender, with normal bowel sounds. No distension or tympany. No kahlil guarding or rebound. No evidence of tenderness throughout. Vital Signs: 18:25 BP 117 / 67; Pulse 78; Resp 16; Temp 97.9; Pulse Ox 99% ; Weight 140.61 kg; Height 5 sv ft. 6 in. (167.64 cm); 18:25 Body Mass Index 50.03 (140.61 kg, 167.64 cm) sv MDM: 18:38 Patient medically screened. [facility] 18:56 Differential diagnosis: otitis media, otitis externa, ruptured TM, foreign body, kahlil cerumen impaction, barotrauma . Data reviewed: vital signs, nurses notes. Data interpreted: personnel monitor: rate is 78 beats/min, rhythm is regular, Pulse oximetry: on room air is 99 %. Counseling: I had a detailed discussion with the patient and/or guardian regarding: the historical points, exam findings, and any diagnostic results supporting the discharge/admit diagnosis, lab results. 19:02 ED course: non toxic, will follow up. [facility] Administered Medications: No medications were administered Disposition: 02/21/20 18:59 Discharged to Home. Impression: Otitis media, unspecified, left ear. - Condition is Stable. - Discharge Instructions: Otitis Media, Adult, Otitis Media, Adult, [id number]. - Prescriptions for Amoxicillin 500 mg Oral Capsule - take 1 capsule by ORAL route every 8 hours for 10 days; 30 tablet. Rowan- D 12 Hour 60-120 mg Oral Tablet Sustained Release 12 hr - take 1 tablet by ORAL route every 12 hours As needed; 20 tablet. Medrol (John) 4 mg Oral Tablets, Dose Pack - take 1 tablet by ORAL route as directed - follow package instructions; 1 packet. - Medication Reconciliation Form, Thank You Letter, Antibiotic Education, Prescription Opioid Use form. - Follow up: Private Physician; When: 2 - 3 days; Reason: Recheck today's complaints, Continuance of care, Re-evaluation by your physician. Follow up: Joe Harper MD; When: 2 - 3 days; Reason: Recheck today's complaints, Re-evaluation by your physician. - Problem is new. - Symptoms have improved. Signatures: Claudia Sanders, PING RN Wellington Loya MD MD cha Smirch, Shelby, RN RN ss Corrections: (The following items were deleted from the chart) 19:30 18:59 02/21/2020 18:59 Discharged to Home. Impression: Otitis media, unspecified, left ss ear. Condition is Stable. Forms are Medication Reconciliation Form, Thank You Letter, Antibiotic Education, Prescription Opioid Use. Follow up: Private Physician; When: 2 - 3 days; Reason: Recheck today's complaints, Continuance of care, Re-evaluation by your physician. Follow up: A Harper; When: 2 - 3 days; Reason: Recheck today's complaints, Re-evaluation by your physician. Problem is new. Symptoms have improved. kahlil
[2020-02-21 19:41] VITALS: BP 117/67; TEMP 97.9; O2SAT 99
[2020-02-21] MEDS ORDERED: LORazepam 2 MG/ML VIAL ONE (21:18)
== END 2020-02-21 19:30 | disposition home or self-care (01) ==
LOC: ER 18:04
DX: H66.92 Otitis media, unspecified, left ear (principal); I10 Essential (primary) hypertension; F17.210 Nicotine dependence, cigarettes, uncomplicated
CPT/HCPCS: 99282

== ENCOUNTER 2021-01-24 08:25 | Emergency (ER) | payer SELFPAY ==
[2021-01-24] MEDS ORDERED: ONDANSETRON 4 MG/2 ML VIAL ONE (09:10)
[2021-01-24] MEDS ORDERED: MORPHINE 4 MG/ML SYR ONE (09:10)
[2021-01-24] MEDS ORDERED: NA CHLORIDE 0.9% 1,000 ML ONE (09:11)
[2021-01-24] MEDS ORDERED: CLINDAMYCIN 600MG/D5W 600 MG/50 ML BAG IV ONE (09:11)
[2021-01-24] MEDS ORDERED: LIDOCAINE 1% W/EPI 1:100,000 MDV 50 ML VIAL ONE (09:13)
[2021-01-24 09:17] LABS: Urine Blood Trace-lysed (Negative); Urine Glucose Negative (Negative); Urine Protein 1+ (Negative); Urine Specific Gravity 1.025 (1.005-1.030)
[2021-01-24 09:23] LABS: Absolute Lymphocytes (CBC) 2.1 K/uL (0.7-4.9); Basophils % 0.3 % (0-1.3); Hematocrit 40.7 % (36.0-45.0); Lymphocytes % 14.5 % (15.3-44.8); MPV 8.1 fL (7.6-11.3); RBC Red Blood Cell Count 4.77 M/uL (3.86-4.86)
[2021-01-24 09:32] LABS: Protime INR 1.49
[2021-01-24 09:51] LABS: ALT/SGPT 46 U/L (12-78); AST/SGOT 47 U/L (15-37); Albumin 3.5 g/dL (3.4-5.0); Alkaline Phosphatase 140 U/L (45-117); BUN Blood Urea Nitrogen 14 mg/dL (7-18); Bicarbonate 25 mmol/L (21-32); Bilirubin Direct 0.4 mg/dL (0-0.2); Creatine Phosphokinase 50 U/L (26-192); Glucose Level 115 mg/dL (74-106); Potassium 3.3 mmol/L (3.5-5.1); Protein, Total 8.7 g/dL (6.4-8.2); Sodium Level 134 mmol/L (136-145); Troponin (Emerg Dept Use Only) < 0.02 ng/mL (0.0-0.045)
[2021-01-24 10:05] LABS: Urine Bacteria LOADED /HPF (<20); Urine Mucus 3+ /HPF (NONE SEEN); Urine RBC <5 /HPF (NONE SEEN)
[2021-01-24] MEDS ORDERED: SMZ./TMP. 800/160 MG TABLET ONE (10:11)
[2021-01-24 10:21] LABS: CKMB Creatine Kinase MB < 1.0 ng/mL (1.0-3.6)
--- NOTE | 2021-01-24 10:35 | EDPHYS ---
Physician Documentation [facility] Name: Kandis Juan Age: 40 yrs Sex: Female : 1980 Arrival Date: 01/24/2021 Time: 08:33 Bed 15 Private MD: ED Physician Russ Dotson HPI: 01/24 09:48 This 40 yrs old Female presents to ER via EMS with complaints of Leg Swelling. ma2 09:48 The patient presents with left leg swelling and redness, pain, s. Onset: The ma2 symptoms/episode began/occurred gradually, 2 day(s) ago. Associated signs and symptoms: Pertinent negatives nausea, swelling, vomiting. Severity of symptoms: At their worst the symptoms were mild, in the emergency department the symptoms are unchanged. The patient has experienced a previous episode. 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 - Social history:: Smoking status: Patient reports the use of cigarette tobacco products. - Family history:: not pertinent. ROS: 09:48 Constitutional: Negative for fever, chills, and weight loss. ma2 09:48 All other systems are negative. Exam: 09:48 Constitutional: This is a well developed, well nourished patient who is awake, alert, ma2 and in no acute distress. Chest/axilla: Normal chest wall appearance and motion. Nontender with no deformity. No lesions are appreciated. Cardiovascular: Regular rate and rhythm with a normal S1 and S2. No gallops, murmurs, or rubs. Normal PMI, no JVD. No pulse deficits. Respiratory: Lungs have equal breath sounds bilaterally, clear to auscultation and percussion. No rales, rhonchi or wheezes noted. No increased work of breathing, no retractions or nasal flaring. Abdomen/GI: Soft, non-tender, with normal bowel sounds. No distension or tympany. No guarding or rebound. No evidence of tenderness throughout. Skin: Warm, dry with normal turgor. Normal color with no rashes, no lesions, and no evidence of cellulitis. MS/ Extremity: left leg abscess on anterior part with redness warmth and + fluctuence, 4x4 cm, Pulses equal, no cyanosis. Neurovascular intact. Full, normal range of motion. Neuro: Awake and alert, GCS 15, oriented to person, place, time, and situation. Cranial nerves II-XII grossly intact. Motor strength 5/5 in all extremities. Sensory grossly intact. Cerebellar exam normal. Normal gait. Vital Signs: 08:33 BP 120 / 85; Pulse 115; Resp 18; Temp 99.4; Pulse Ox 97% ; Weight 131.54 kg; Height 5 jl7 ft. 7 in. (170.18 cm); Pain 9/10; 09:45 BP 102 / 71; Pulse 98; Resp 15; Pulse Ox 95% ; jl7 10:54 BP 114 / 71; Pulse 97; Resp 15; Pulse Ox 95% ; jl7 08:33 Body Mass Index 45.42 (131.54 kg, 170.18 cm) jl7 Procedures: 09:48 I \T\ D: Incision and drainage was performed for an abscess of the left Prepped with ma2 Betadine, alcohol, Anesthetized with 5 ml's 1% Lidocaine w/ Epi. Incised with #11 blade. Drained large amount purulent fluid. Loculations removed. Packed with iodoform gauze, Dressing: sterile 4x4 gauze, the patient tolerated the procedure well. MDM: 08:40 Patient medically screened. sd2 09:48 Differential diagnosis: contusion, abrasion, tendonitis, left leg abscess with ma2 cellulitis. Data reviewed: vital signs, nurses notes. Counseling: I had a detailed discussion with the patient and/or guardian regarding: the historical points, exam findings, and any diagnostic results supporting the discharge/admit diagnosis, the presence of at least one elevated blood pressure reading (>120/80) during this emergency department visit, the need for outpatient follow up. Response to treatment: the patient's symptoms have markedly improved after treatment. 01/24 08:42 Order name: Lactate [facility] 01/24 08:42 Order name: C-Reactive Protein [facility] 01/24 08:42 Order name: Basic Metabolic Panel [facility] 01/24 08:42 Order name: Blood Culture Adult (2) sd2 01/24 08:42 Order name: CBC with Diff sd2 01/24 08:42 Order name: Ckmb sd2 01/24 08:42 Order name: CPK; Complete Time: 10:34 sd2 01/24 08:42 Order name: LFT's; Complete Time: 10:34 sd2 01/24 08:42 Order name: Procalcitonin; Complete Time: 10:34 sd2 01/24 08:42 Order name: Protime (+inr); Complete Time: 09:47 sd2 01/24 08:42 Order name: Ptt, Activated; Complete Time: 09:47 sd2 01/24 08:42 Order name: Troponin (emerg Dept Use Only); Complete Time: 10:34 sd2 01/24 08:42 Order name: Lactate; Complete Time: 10:04 MS 01/24 08:43 Order name: C-Reactive Protein; Complete Time: 10:34 MS 01/24 08:42 Order name: Accucheck; Complete Time: 09:45 sd2 01/24 08:43 Order name: Basic Metabolic Panel; Complete Time: 10:34 MS 01/24 08:43 Order name: Blood Culture [facility] 01/24 08:43 Order name: CBC with Automated Diff; Complete Time: 09:47 MS 01/24 08:43 Order name: CKMB Creatine Kinase MB; Complete Time: 10:34 MS 01/24 09:17 Order name: Urine Dipstick-Ancillary; Complete Time: 09:47 [facility] 01/24 09:17 Order name: Urine Microscopic Only; Complete Time: 10:34 7 01/24 09:18 Order name: Urine --Ancillary (enter results) al 01/24 10:06 Order name: Urine Culture [facility] 01/24 08:42 Order name: EKG - Nurse/Tech; Complete Time: 09:25 sd2 01/24 08:42 Order name: IV Saline Lock - Large Bore; Complete Time: 09:25 sd2 01/24 08:42 Order name: Labs collected and sent; Complete Time: 09:25 sd2 01/24 08:42 Order name: O2 Per Protocol; Complete Time: 09:25 [facility] 01/24 08:42 Order name: O2 Sat Monitoring; Complete Time: 09:26 [facility] 01/24 08:42 Order name: Urine Dipstick-Ancillary (obtain specimen); Complete Time: 09:26 sd2 01/24 08:46 Order name: Incision \T\ Drainage Setup; Complete Time: 09:44 ma Administered Medications: 09:24 Drug: morphine 4 mg Route: IVP; Site: right antecubital; 7 09:54 Follow up: Response: No adverse reaction; Pain is decreased jl7 09:24 Drug: Zofran (Ondansetron) 4 mg Route: IVP; Site: right antecubital; jl7 09:54 Follow up: Response: No adverse reaction [facility] 09:25 Drug: NS 0.9% (30 ml/kg) 30 ml/kg Route: IV; Rate: bolus; Site: right antecubital; jl7 09:54 Follow up: Response: No adverse reaction; IV Status: Completed infusion; IV Intake: [facility] 1000ml 09:25 Drug: Clindamycin 600 mg Route: IVPB; Infused Over: 30 mins; Site: right antecubital; 7 09:55 Follow up: Response: No adverse reaction; IV Status: Completed infusion [facility] 09:30 Drug: Lidocaine-Epinephrine -1%: (1:100,000) 10 ml {Note: administered by to [address] Volume: 20 ml; Route: Infiltration; :54 Follow up: Response: No adverse reaction [facility] 09:53 Drug: Bactrim (trimethoprim-sulfamethoxazole) 160 mg-800 mg (DS) 160 mg Route: PO; jl7 10:55 Follow up: Response: No adverse reaction 7 10:55 Drug: [place] (HYDROcodone-acetaminophen) 5 mg-325 mg 1 tabs Route: PO; jl7 10:55 Follow up: Response: Medication administered at discharge. 7 Disposition: 01/24/21 10:35 Discharged to Home. Impression: Cystitis, unspecified without hematuria, Cutaneous abscess of left lower limb, Cellulitis of left lower limb, Hypokalemia. - Condition is Stable. - Discharge Instructions: Urinary Tract Infection, Adult, [id number], Cellulitis, Adult, [id number], Percutaneous Abscess Drain, Incision and Drainage, Care After. - Prescriptions for Clindamycin HCl 300 mg Oral Capsule - take 1 capsule by ORAL route every 6 hours for 10 days; 40 capsule. Diclofenac Sodium 75 mg Oral Tablet Sustained Release - take 1 tablet by ORAL route 2 times per day; 30 tablet. Bactrim DS 800- 160 mg Oral Tablet - take 1 tablet by ORAL route every 12 hours for 10 days; 20 tablet. Potassium Chloride 10 % Oral Liquid - take 20 milliequivalent by ORAL route once daily Take after meal; Mix in 6 ounces of water or juice; 240 milliliter. - Medication Reconciliation Form, Thank You Letter, Antibiotic Education, Prescription Opioid Use form. - Follow up: Private Physician; When: Tomorrow; Reason: If symptoms return, Continuance of care. Signatures: Dispatcher [employer] Amena Fajardo RN RN jl7 Russ Dotson MD MD ma2 Corrections: (The following items were deleted from the chart) 09:25 08:42 Cardiac monitoring ordered. nickolas [email or web address] 10:56 10:35 01/24/2021 10:35 Discharged to Home. Impression: Cystitis, unspecified without jl7 hematuria; Cutaneous abscess of left lower limb; Cellulitis of left lower limb; Hypokalemia. Condition is Stable. Discharge Instructions: Urinary Tract Infection, Adult, [id number], Cellulitis, Adult, [id number], Percutaneous Abscess Drain, Incision and Drainage, Care After. Prescriptions for Clindamycin HCl 300 mg Oral Capsule - take 1 capsule by ORAL route every 6 hours for 10 days; 40 capsule, Diclofenac Sodium 75 mg Oral Tablet Sustained Release - take 1 tablet by ORAL route 2 times per day; 30 tablet, Bactrim DS 800-160 mg Oral Tablet - take 1 tablet by ORAL route every 12 hours for 10 days; 20 tablet. and Forms are Medication Reconciliation Form, Thank You Letter, Antibiotic Education, Prescription Opioid Use. Follow up: Private Physician; When: Tomorrow; Reason: If symptoms return, Continuance of care. ma2
--- NOTE | 2021-01-24 10:35 | ER ---
Nurse's Notes [facility] Name: Kandis Juan Age: 40 yrs Sex: Female : 1980 Arrival Date: 01/24/2021 Time: 08:33 Bed 15 Private MD: Diagnosis: Cystitis, unspecified without hematuria;Cutaneous abscess of left lower limb;Cellulitis of left lower limb;Hypokalemia Presentation: 01/24 08:33 Chief complaint: EMS states: Left lower leg swelling x 3 days, vitals WNL. Coronavirus jl7 screen: Client denies travel out of the [place] in the last 14 days. Ebola Screen: No symptoms or risks identified at this time. Initial Sepsis Screen: Does the patient meet any 2 criteria? HR > 90 bpm. No. Patient's initial sepsis screen is negative. Does the patient have a suspected source of infection? Yes: Skin breakdown/wound No. Patient's initial sepsis screen is negative. Risk Assessment: Do you want to hurt yourself or someone else? Patient reports no desire to harm self or others. Onset of symptoms was January 22, 2021. Care prior to arrival: None. 08:33 Method Of Arrival: EMS: [facility] jl7 08:33 Acuity: RONNY 3 jl7 Triage Assessment: 08:37 General: Appears in no apparent distress. uncomfortable, Behavior is calm, cooperative, jl7 appropriate for age. Pain: Complains of pain in left aparicio Pain currently is 9 out of 10 on a pain scale. Neuro: Level of Consciousness is awake, alert, obeys commands, Oriented to person, place, time, situation. Cardiovascular: Patient's skin is warm and dry. Respiratory: Airway is patent Respiratory effort is even, unlabored, Respiratory pattern is regular, symmetrical. Derm: Skin is pink, warm \T\ dry. Abscess located on left aparicio is golf ball sized, is hot to touch, is red, is raised. 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 - Social history:: Smoking status: Patient reports the use of cigarette tobacco products. - Family history:: not pertinent. Screenin:00 Abuse screen: Denies threats or abuse. Denies injuries from another. Nutritional jl7 screening: No deficits noted. Tuberculosis screening: No symptoms or risk factors identified. Fall Risk IV access (20 points). Total Tracy Fall Scale indicates No Risk (0-24 pts). Assessment: 08:40 General: See triage assessment. jl7 09:45 Reassessment: Patient appears in no apparent distress at this time. No changes from jl7 previously documented assessment. Patient and/or family updated on plan of care and expected duration. Pain level reassessed. Patient is alert, oriented x 3, equal unlabored respirations, skin warm/dry/pink. 10:54 Reassessment: Pt reports pain 8/10, ERD notified, see [facility] for orders. jl7 Vital Signs: 08:33 BP 120 / 85; Pulse 115; Resp 18; Temp 99.4; Pulse Ox 97% ; Weight 131.54 kg; Height 5 jl7 ft. 7 in. (170.18 cm); Pain 9/10; 09:45 BP 102 / 71; Pulse 98; Resp 15; Pulse Ox 95% ; jl7 10:54 BP 114 / 71; Pulse 97; Resp 15; Pulse Ox 95% ; jl7 08:33 Body Mass Index 45.42 (131.54 kg, 170.18 cm) jl7 ED Course: 08:33 Patient arrived in ED. jl7 08:36 Triage completed. jl7 08:37 Arm band placed on right wrist. jl7 08:40 Russ Dotson MD is Attending Physician. ma2 08:42 Amena Grijalva RN is Primary Nurse. jl7 09:00 Patient has correct armband on for positive identification. Placed in gown. Bed in low jl7 position. Call light in reach. Side rails up X 1. Pulse ox on. NIBP on. 09:04 First set of blood cultures drawn by ne. jl7 09:10 Inserted saline lock: 20 gauge in right antecubital area, using aseptic technique. jl7 Blood collected. 09:10 Initial lab(s) drawn, by ne, sent to lab. Second set of blood cultures drawn by me. jl7 09:48 Assist provider with I \T\ D: of an abscess on left aparicio Set up I\T\D tray. Performed by jl 7 Russ Dotson MD Wound packed. iodoform gauze, Dressing with 4X4s, Patient tolerated well. 10:54 IV discontinued, intact, bleeding controlled, No redness/swelling at site. Pressure jl7 dressing applied. Administered Medications: 09:24 Drug: morphine 4 mg Route: IVP; Site: right antecubital; jl7 09:54 Follow up: Response: No adverse reaction; Pain is decreased jl7 09:24 Drug: Zofran (Ondansetron) 4 mg Route: IVP; Site: right antecubital; jl7 :54 Follow up: Response: No adverse reaction :25 Drug: NS 0.9% (30 ml/kg) 30 ml/kg Route: IV; Rate: bolus; Site: right antecubital; jl7 09:54 Follow up: Response: No adverse reaction; IV Status: Completed infusion; IV Intake: jl7 1000ml 09:25 Drug: Clindamycin 600 mg Route: IVPB; Infused Over: 30 mins; Site: right antecubital; jl7 09:55 Follow up: Response: No adverse reaction; IV Status: Completed infusion jl7 09:30 Drug: Lidocaine-Epinephrine -1%: (1:100,000) 10 ml {Note: administered by to 7 LLE.} Volume: 20 ml; Route: Infiltration; :54 Follow up: Response: No adverse reaction jl7 09:53 Drug: Bactrim (trimethoprim-sulfamethoxazole) 160 mg-800 mg (DS) 160 mg Route: PO; jl7 10:55 Follow up: Response: No adverse reaction jl7 10:55 Drug: [place] (HYDROcodone-acetaminophen) 5 mg-325 mg 1 tabs Route: PO; jl7 10:55 Follow up: Response: Medication administered at discharge. jl7 Intake: 09:54 IV: 1000ml; Total: 1000ml. jl7 Outcome: 10:35 Discharge ordered by . ma2 10:54 Discharged to home ambulatory, with friend. jl7 10:54 Condition: stable 10:54 Discharge instructions given to patient, Instructed on discharge instructions, follow up and referral plans. medication usage, Demonstrated understanding of instructions, follow-up care, medications, Prescriptions given X 4. 10:56 Patient left the ED. jl7 Signatures: Amena Grijalva RN RN jl7 Russ Dotson MD MD ma2 Corrections: (The following items were deleted from the chart) 10:54 09:46 General: See triage assessment. jl7 jl7
[2021-01-24] MEDS ORDERED: HYDROCODONE/APAP 5/325 MG TAB ONE (11:08)
[2021-01-24 11:11] VITALS: TEMP 99.4
[2021-01-24 11:15] VITALS: O2SAT 95
[2021-01-24 11:21] VITALS: BP 114/71
[2021-01-24 13:16] LABS: Urine Specific Gravity/Preg 1.025 (1.005-1.030)
== END 2021-01-24 10:56 | disposition home or self-care (01) ==
LOC: ER 08:25
PROC: 0H9LXZZ Drainage of Left Lower Leg Skin, External Approach (ICD-10-PCS; principal; 2021-01-24)
DX: L03.116 Cellulitis of left lower limb (principal); L02.416 Cutaneous abscess of left lower limb; N30.90 Cystitis, unspecified without hematuria; F17.210 Nicotine dependence, cigarettes, uncomplicated; F31.9 Bipolar disorder, unspecified; I10 Essential (primary) hypertension
CPT/HCPCS: 36415; 80048; 80076; 81003; 81015; 81025; 82550; 82553; 83605; 84145; 84484; 85025; 85610; 85730; 86140; 87040; 87077; 87086; 87088; 87186; 96365; 96368; 96375; 99284; J2405; J7030

== ENCOUNTER 2021-02-27 16:54 | Emergency (ER) | payer SELFPAY ==
[2021-02-27 18:38] LABS: Absolute Lymphocytes (CBC) 1.5 K/uL (0.7-4.9); Basophils % 0.8 % (0-1.3); Hematocrit 34.9 % (36.0-45.0); Lymphocytes % 25.9 % (15.3-44.8); MPV 8.1 fL (7.6-11.3); RBC Red Blood Cell Count 4.07 M/uL (3.86-4.86)
[2021-02-27 18:46] LABS: Potassium 3.9 mmol/L (3.5-5.1)
[2021-02-27] MEDS ORDERED: CLINDAMYCIN 600MG/D5W 600 MG/50 ML BAG IV ONE (19:43)
--- NOTE | 2021-03-01 16:49 | ER ---
Nurse's Notes [facility] Name: Kandis Juan Age: 40 yrs Sex: Female : 1980 Arrival Date: 02/27/2021 Time: 16:54 Bed 17 Private MD: Diagnosis: Cellulitis of left lower limb Presentation: 02/27 17:05 Chief complaint: Patient states: Pt reports she had an abscess drained in the ER 1 ss month ago, but did not follow up and when she was taking a shower today she noticed maggots in her wound. Coronavirus screen: Client denies travel out of the [place] in the last 14 days. Ebola Screen: Patient denies exposure to infectious person. Patient denies travel to an Ebola-affected area in the 21 days before illness onset. Initial Sepsis Screen: Does the patient meet any 2 criteria? No. Patient's initial sepsis screen is negative. Does the patient have a suspected source of infection? Yes: Skin breakdown/wound. Risk Assessment: Do you want to hurt yourself or someone else? Patient reports no desire to harm self or others. Onset of symptoms was January 2021. 17:05 Method Of Arrival: Ambulatory ss 17:05 Acuity: RONNY 3 ss Triage Assessment: 17:10 General: Appears distressed, uncomfortable, obese, Behavior is calm, cooperative, bp appropriate for age. Pain: Complains of pain in medial aspect of left calf. EENT: No deficits noted. Neuro: No deficits noted. Cardiovascular: No deficits noted. Respiratory: No deficits noted. GI: No signs and/or symptoms were reported involving the gastrointestinal system. : No signs and/or symptoms were reported regarding the genitourinary system. Derm: No deficits noted. Musculoskeletal: No deficits noted. Injury Description: LEFT MEDIAL CALF ABSCESS. Historical: - Allergies: 17:06 No Known Allergies; ss - PMHx: 17:06 Bipolar disorder; ss - Immunization history:: Adult Immunizations up to date. - Social history:: Smoking status: Patient reports the use of cigarette tobacco products, denies chronic smoking, but will smoke occasionally. Screenin:10 Abuse screen: Denies threats or abuse. Denies injuries from another. Nutritional bp screening: No deficits noted. Tuberculosis screening: No symptoms or risk factors identified. Fall Risk None identified. Assessment: 17:10 General: SEE TRIAGE NOTE. bp 18:00 Reassessment: No changes from previously documented assessment. Patient and/or family bp updated on plan of care and expected duration. Pain level reassessed. Patient is alert, oriented x 3, equal unlabored respirations, skin warm/dry/pink. 19:00 Reassessment: D/C ON HOLD FOR IV ABX. bp 19:44 Reassessment: D/C HOME AMBULATORY. bp Vital Signs: 17:05 BP 132 / 72; Pulse 99; Resp 19; Temp 97.7(TE); Pulse Ox 99% on R/A; Weight 138.35 kg; ss Height 5 ft. 7 in. (170.18 cm); Pain 3/10; 18:00 BP 105 / 65; Pulse 76; Resp 16; Pulse Ox 97% ; bp 19:00 BP 118 / 71; Pulse 65; Resp 16; Pulse Ox 94% ; bp 17:05 Body Mass Index 47.77 (138.35 kg, 170.18 cm) ED Course: 16:54 Patient arrived in ED. am2 17:06 Triage completed. ss 17:06 Arm band placed on right wrist. ss 17:10 Patient has correct armband on for positive identification. Bed in low position. Call bp light in reach. Side rails up X2. 17:21 Wellington Kern PA is PHCP. cp 17:21 Russ Dotson MD is Attending Physician. cp 17:39 Jeferson Ayala, PING is Primary Nurse. bp 18:00 Inserted saline lock: 20 gauge in right forearm, using aseptic technique. Blood bp collected. 19:35 No provider procedures requiring assistance completed. IV discontinued, intact, bp bleeding controlled, No redness/swelling at site. Pressure dressing applied. Administered Medications: 19:15 Drug: Clindamycin 900 mg Route: IVPB; Infused Over: 30 mins; Site: right forearm; bp 19:36 Follow up: IV Status: Completed infusion; IV Intake: 50ml bp Intake: 19:36 IV: 50ml; Total: 50ml. bp Outcome: 18:56 Discharge ordered by . cp 19:35 Discharged to home ambulatory. bp 19:35 Condition: stable 19:35 Discharge instructions given to patient, Instructed on discharge instructions, follow up and referral plans. medication usage, Demonstrated understanding of instructions, follow-up care, medications, Prescriptions given X 1. 19:45 Patient left the ED. bp Signatures: Paula Stallings RN RN Wellington Kern PA PA cp Moreno, Amanda am2 Peltier, Brian, RN RN bp Corrections: (The following items were deleted from the chart) 17:07 17:06 PMHx: Hypertension; ss ss 18:26 17:30 BP 127 / 70; Pulse 82bpm; Resp 15bpm; Pulse Ox 100%; bp bp 18:26 18:25 BP 141 / 73; Pulse 84bpm; Resp 14bpm; Pulse Ox 98%; bp bp
--- NOTE | 2021-03-01 16:50 | EDPHYS ---
Physician Documentation [facility] Name: Kandis Juan Age: 40 yrs Sex: Female : 1980 Arrival Date: 02/27/2021 Time: 16:54 Bed 17 Private MD: ED Physician Russ Dotsno HPI: 02/27 17:45 This 40 yrs old Female presents to ER via Ambulatory with complaints of Wound cp Infection - leg. 17:45 The patient presents with open wound anterior aspect of left lower leg. cp 17:45 Patient presents to ED for persistent open wound to left lower leg. Patient reports cp having abscess drained in area 1 month ago. Patient concerned after noticing maggots in wound today. Patient denies fever, chills. Historical: - Allergies: 17:06 No Known Allergies; ss - PMHx: 17:06 Bipolar disorder; ss - Immunization history:: Adult Immunizations up to date. - Social history:: Smoking status: Patient reports the use of cigarette tobacco products, denies chronic smoking, but will smoke occasionally. ROS: 17:50 Constitutional: Negative for body aches, chills, fever, poor PO intake. cp 17:50 Eyes: Negative for injury, pain, redness, and discharge. cp 17:50 Cardiovascular: Negative for chest pain. 17:50 Respiratory: Negative for cough, shortness of breath, wheezing. 17:50 Skin: Positive for of the anterior aspect left lower leg, open wound. 17:50 All other systems are negative. Exam: 17:57 Head/Face: Normocephalic, atraumatic. cp 17:57 Constitutional: The patient appears in no acute distress, alert, awake, non-toxic, well developed, well nourished, obese. 17:57 Chest/axilla: Inspection: normal. cp 17:57 Cardiovascular: Rate: normal. 17:57 Respiratory: the patient does not display signs of respiratory distress, Respirations: normal, no use of accessory muscles, no retractions. 17:57 Skin: noted small open wound through dermal layer of skin with scant drainage, mild surrounding erythema, mild tenderness to palpation . Vital Signs: 17:05 BP 132 / 72; Pulse 99; Resp 19; Temp 97.7(TE); Pulse Ox 99% on R/A; Weight 138.35 kg; ss Height 5 ft. 7 in. (170.18 cm); Pain 3/10; 18:00 BP 105 / 65; Pulse 76; Resp 16; Pulse Ox 97% ; bp 19:00 BP 118 / 71; Pulse 65; Resp 16; Pulse Ox 94% ; bp 17:05 Body Mass Index 47.77 (138.35 kg, 170.18 cm) ss MDM: 17:33 Patient medically screened. cp 18:00 Differential diagnosis: abscess, cellulitis, sepsis. cp 18:55 Data reviewed: vital signs, nurses notes, lab test result(s), and as a result, I will cp discharge patient. 18:55 Counseling: I had a detailed discussion with the patient and/or guardian regarding: the cp historical points, exam findings, and any diagnostic results supporting the discharge/admit diagnosis, lab results, the need for outpatient follow up, a family practitioner, to return to the emergency department if symptoms worsen or persist or if there are any questions or concerns that arise at home. 02/27 17:33 Order name: Basic Metabolic Panel 02/27 17:33 Order name: CBC with Diff cp 02/27 17:33 Order name: Wound Culture 02/27 17:34 Order name: Basic Metabolic Panel; Complete Time: 18:50 EDMS 02/27 18:51 Interpretation: GFR 89; CRE 0.73; CL 110. cp 02/27 17:34 Order name: CBC with Automated Diff; Complete Time: 18:50 EDMS 02/27 17:33 Order name: IV Saline Lock; Complete Time: 18:21 02/27 17:33 Order name: Labs collected and sent; Complete Time: 18:21 02/27 17:33 Order name: Wound dressing: irrigate and dress wound; Complete Time: 18:21 cp Administered Medications: 19:15 Drug: Clindamycin 900 mg Route: IVPB; Infused Over: 30 mins; Site: right forearm; bp 19:36 Follow up: IV Status: Completed infusion; IV Intake: 50ml bp Disposition Summary: 02/27/21 18:56 Discharge Ordered Location: Home cp Problem: an ongoing problem cp Symptoms: have improved cp Condition: Stable cp Diagnosis - Cellulitis of left lower limb cp Followup: cp - With: Private Physician - When: 1 - 2 days - Reason: Wound Recheck Discharge Instructions: - Discharge Summary Sheet cp - Cellulitis, Adult cp Forms: - Medication Reconciliation Form cp - Thank You Letter cp - Antibiotic Education cp - Prescription Opioid Use cp - Work release form tt3 Prescriptions: - Clindamycin HCl 300 mg Oral Capsule - take 1 capsule by ORAL route every 6 hours for 10 days; 40 capsule; Refills: 0, cp Product Selection Permitted - Bactrim DS 800-160 mg Oral Tablet - take 1 tablet by ORAL route every 12 hours for 10 days; 20 tablet; Refills: 0, cp Product Selection Permitted Signatures: Dispatcher [employer] Paula Benavides RN RN ss Wellington Kern, LAQUITA PA cp Jeferson Ayala, RN RN bp Corrections: (The following items were deleted from the chart) 17:07 17:06 PMHx: Hypertension; [facility] 18:51 18:50 CRE 0.73. cp cp
[2021-03-01 22:30] VITALS: TEMP 97.7
[2021-03-01 22:33] VITALS: BP 118/71; O2SAT 94
== END 2021-02-27 19:45 | disposition home or self-care (01) ==
LOC: ER 16:54
DX: L03.116 Cellulitis of left lower limb (principal); F17.210 Nicotine dependence, cigarettes, uncomplicated
CPT/HCPCS: 36415; 80048; 85025; 87070; 87077; 87186; 87205; 96365; 99284

== ENCOUNTER 2021-05-11 21:15 | Emergency (ER) | payer SELFPAY ==
--- NOTE | 2021-05-11 22:04 | ER ---
Nurse's Notes [facility] Name: Kandis Juan Age: 41 yrs Sex: Female : 1980 Arrival Date: 05/11/2021 Time: 21:18 Bed 28 Private MD: Diagnosis: Unspecified open wound, left lower leg Presentation: 05/11 21:38 Chief complaint: Patient states: pt has wound on leg been there 4 moths since abscess bs2 drainage here, pt has seen PCP and was told to follow up with wound care per patient " I have trouble with transport and since my son is here I want to get it checked out". Coronavirus screen: At this time, the client does not indicate any symptoms associated with coronavirus-19. Ebola Screen: No symptoms or risks identified at this time. Initial Sepsis Screen: Does the patient meet any 2 criteria? No. Patient's initial sepsis screen is negative. Does the patient have a suspected source of infection? No. Patient's initial sepsis screen is negative. Risk Assessment: Do you want to hurt yourself or someone else? Patient reports no desire to harm self or others. Onset of symptoms is unknown. 21:38 Method Of Arrival: Ambulatory bs2 21:38 Acuity: RONNY 5 bs2 Triage Assessment: 21:45 General: Appears in no apparent distress. comfortable, obese, Behavior is cooperative, bs2 appropriate for age, anxious. Pain: Denies pain. Musculoskeletal: Swelling healing wound LT leg. Injury Description: post abscess drainage x 4 months. Historical: - Allergies: 21:45 No Known Allergies; bs2 - Home Meds: 21:45 None [Active]; bs2 - PMHx: 21:45 Bipolar disorder; bs2 - PSHx: 21:45 section; bs2 - Immunization history:: Adult Immunizations not immunized, Client reports having NOT received the Covid vaccine. - Social history:: Smoking status: unknown Patient uses street drugs, marijuana. Screenin:13 Abuse screen: Denies threats or abuse. Nutritional screening: No deficits noted. On no kc4 prescribed diet Difficulty chewing/swallowing? No. Tuberculosis screening: No symptoms or risk factors identified. Never had TB. Possible symptoms: None Risk factors: None. Fall Risk None identified. No fall in past 12 months (0 pts). No secondary diagnosis (0 pts). No IV (0 pts). Ambulatory Aid- None/Bed Rest/Nurse Assist (0 pts). Gait- Normal/Bed Rest/Wheelchair (0 pts) Mental Status- Oriented to own ability (0 pts). Total Tracy Fall Scale indicates No Risk (0-24 pts). Assessment: 22:03 General: Appears in no apparent distress. comfortable, Behavior is calm, cooperative, kc4 appropriate for age, Denies fever, feeling ill, fatigue, chills. Pain: Denies pain. Neuro: No deficits noted. Cardiovascular: No deficits noted. Respiratory: No deficits noted. GI: No deficits noted. : No deficits noted. EENT: No deficits noted. No signs and/or symptoms were reported regarding the EENT system. Derm: Abscess located on left legleft lower leg is half dollar sized, has clear drainage, is red, was lanced by patient prior to arrival, Denies increased burning, pain, peeling, tingling. Vital Signs: 21:38 BP 146 / 80; Pulse 67; Resp 17; Temp 98.4(O); Pulse Ox 99% ; Weight 136.08 kg; Height 5 bs2 ft. 7 in. (170.18 cm); Pain 0/10; 22:12 BP 134 / 83; Pulse 69; Resp 20; Temp 98.1; Pulse Ox 100% on R/A; Pain 0/10; kc4 21:38 Body Mass Index 46.99 (136.08 kg, 170.18 cm) bs2 ED Course: 21:18 Patient arrived in ED. ja2 21:45 Triage completed. bs2 21:45 Arm band placed on right wrist. bs2 21:48 Logan Francis PA is PHCP. jr8 21:48 Russ Dotson MD is Attending Physician. jr8 22:03 Florence Thomas is Primary Nurse. kc4 22:06 Patient has correct armband on for positive identification. Bed in low position. Call kc4 light in reach. 22:06 No provider procedures requiring assistance completed. Patient did not have IV access kc4 during this emergency room visit. Administered Medications: No medications were administered Outcome: 22:03 Discharge ordered by . jr8 22:13 Discharged to home ambulatory. kc4 22:13 Condition: stable 22:13 Discharge instructions given to patient, Instructed on discharge instructions, follow up and referral plans. wound care, Demonstrated understanding of instructions, follow-up care. 22:15 Patient left the ED. kc4 Signatures: Logan Francis PA PA jr8 Nargis Reich, RN RN bs2 Florence Thomas kc4 Khadra Roberson
--- NOTE | 2021-05-11 22:04 | EDPHYS ---
Physician Documentation [facility] Name: Kandis Juan Age: 41 yrs Sex: Female : 1980 Arrival Date: 05/11/2021 Time: 21:18 Bed 28 Private MD: ED Physician Russ Dotson HPI: 05/11 21:53 This 41 yrs old Female presents to ER via Ambulatory with complaints of Leg jr8 Injury, Rash. 21:53 This is a 41-year-old female that presented to the emergency room with complaints of a jr8 chronic leg wound to the left lower extremity. Has been treated with antibiotics in the past and was told to follow-up for wound management. Patient stated that she had taken her antibiotics but has not followed up for continued wound management. Wanted us to evaluate her leg to make sure that it had not become reinfected.. Historical: - Allergies: 21:45 No Known Allergies; bs2 - Home Meds: 21:45 None [Active]; bs2 - PMHx: 21:45 Bipolar disorder; bs2 - PSHx: 21:45 section; bs2 - Immunization history:: Adult Immunizations not immunized, Client reports having NOT received the Covid vaccine. - Social history:: Smoking status: unknown Patient uses street drugs, marijuana. ROS: 21:53 Eyes: Negative for injury, pain, redness, and discharge, ENT: Negative for injury, jr8 pain, and discharge, Neck: Negative for injury, pain, and swelling, Cardiovascular: Negative for chest pain, palpitations, and edema, Respiratory: Negative for shortness of breath, cough, wheezing, and pleuritic chest pain, Abdomen/GI: Negative for abdominal pain, nausea, vomiting, diarrhea, and constipation, Back: Negative for injury and pain, MS/Extremity: Negative for injury and deformity, Neuro: Negative for headache, weakness, numbness, tingling, and seizure. 21:53 Skin: Positive for Open wound left leg. Exam: 22:00 Constitutional: This is a well developed, well nourished patient who is awake, alert, jr8 and in no acute distress. Cardiovascular: Regular rate and rhythm with a normal S1 and S2. No gallops, murmurs, or rubs. Normal PMI, no JVD. No pulse deficits. Respiratory: Lungs have equal breath sounds bilaterally, clear to auscultation and percussion. No rales, rhonchi or wheezes noted. No increased work of breathing, no retractions or nasal flaring. MS/ Extremity: Pulses equal, no cyanosis. Neurovascular intact. Full, normal range of motion. Neuro: Awake and alert, GCS 15, oriented to person, place, time, and situation. Cranial nerves II-XII grossly intact. Motor strength 5/5 in all extremities. Sensory grossly intact. 22:00 Skin: Patient has small approximately 1.5 cm wound noted to the anterior left aparicio. Mild chronic appearing erythema noted without any warmth or temperature change. No exudative material noted. 2 smaller subcentimeter ulcerative lesions noted to the surrounding wound. Again without any discharge.. Vital Signs: 21:38 BP 146 / 80; Pulse 67; Resp 17; Temp 98.4(O); Pulse Ox 99% ; Weight 136.08 kg; Height 5 bs2 ft. 7 in. (170.18 cm); Pain 0/10; 22:12 BP 134 / 83; Pulse 69; Resp 20; Temp 98.1; Pulse Ox 100% on R/A; Pain 0/10; kc4 21:38 Body Mass Index 46.99 (136.08 kg, 170.18 cm) bs2 MDM: 21:48 Patient medically screened. 8 22:00 Data reviewed: vital signs, nurses notes, and as a result, I will discharge patient. jr8 Data interpreted: Pulse oximetry: on room air is 99 %. Interpretation: normal. Counseling: I had a detailed discussion with the patient and/or guardian regarding: the historical points, exam findings, and any diagnostic results supporting the discharge/admit diagnosis, the need for outpatient follow up, wound management , to return to the emergency department if symptoms worsen or persist or if there are any questions or concerns that arise at home. ED course: Discussed with patient that there is no active acute infection noted to the left leg. That she does have chronic wound that needs wound management follow-up. Will refer her to wound management therapy center here at [facility]. Administered Medications: No medications were administered Disposition: 05/12 03:00 Co-signature as Attending Physician, Russ Dotson MD. ma2 Disposition Summary: 05/11/21 22:03 Discharge Ordered Location: Home jr8 Problem: new jr8 Symptoms: have improved jr8 Condition: Stable jr8 Diagnosis - Unspecified open wound, left lower leg jr8 Followup: jr8 - With: Private Physician - When: 2 - 3 days - Reason: Recheck today's complaints, Continuance of care, Re-evaluation by your physician Discharge Instructions: - Discharge Summary Sheet jr8 - Wound Infection jr8 - Wound Care, Adult jr8 Forms: - Medication Reconciliation Form jr8 - Thank You Letter jr8 - Antibiotic Education jr8 - Prescription Opioid Use jr8 Signatures: Logan Francis PA PA jr8 Russ Dotson MD MD ma2 Nargis Reich RN RN bs2
[2021-05-11 22:35] VITALS: BP 134/83; TEMP 98.1; O2SAT 100
== END 2021-05-11 22:15 | disposition home or self-care (01) ==
LOC: ER 21:15
DX: S81.802A Unspecified open wound, left lower leg, initial encounter (principal)
CPT/HCPCS: 99281

== ENCOUNTER 2021-09-04 22:26 | Emergency (ER) | payer OTHER ==
[2021-09-05] MEDS ORDERED: DIPHENHYDRAMINE 25 MG TAB/CAP ONE (00:07)
[2021-09-05] MEDS ORDERED: FAMOTIDINE 20 MG TAB ONE (00:07)
[2021-09-05] MEDS ORDERED: predniSONE 20 MG TAB ONE (01:03)
[2021-09-05 02:41] LABS: Hematocrit 38.2 % (36.0-45.0); MPV 7.7 fL (7.6-11.3); RBC Red Blood Cell Count 4.62 M/uL (3.86-4.86)
[2021-09-05 02:47] LABS: Albumin 3.1 g/dL (3.4-5.0); Bilirubin Direct 0.1 mg/dL (0-0.2); Bilirubin Total 0.4 mg/dL (0.2-1.0); Potassium 3.4 mmol/L (3.5-5.1); Protein, Total 7.4 g/dL (6.4-8.2)
--- NOTE | 2021-09-05 03:13 | ER ---
Nurse's Notes [facility] Name: Kandis Juan Age: 41 yrs Sex: Female : 1980 Arrival Date: 09/04/2021 Time: 22:29 Bed 18 Private MD: Diagnosis: Rash and other nonspecific skin eruption Presentation: 09/04 22:46 Chief complaint: Patient states: Rash to generalized body that began about 3 weeks ago, lp1 appeared after symptoms resolved from COVID. Severe to skin fold areas with some drainage from under breasts; Patient has been using Calamine lotion, Monistat, Hydrocortisone cream. Coronavirus screen: At this time, the client does not indicate any symptoms associated with coronavirus-19. Ebola Screen: No symptoms or risks identified at this time. Risk Assessment: Do you want to hurt yourself or someone else? Patient reports no desire to harm self or others. Onset of symptoms was September 04, 2021. 22:46 Method Of Arrival: Ambulatory lp1 22:46 Acuity: RONNY 3 lp1 22:50 Initial Sepsis Screen: Does the patient meet any 2 criteria? No. Patient's initial lp1 sepsis screen is negative. Does the patient have a suspected source of infection? No. Patient's initial sepsis screen is negative. [employer]: 22:49 LMP 07/25/2021 lp1 Historical: - Allergies: 22:48 No Known Allergies; lp1 - Home Meds: 22:48 None [Active]; lp1 - PMHx: 22:48 Bipolar disorder; lp1 - PSHx: 22:48 section; Leg surgery; lp1 - Immunization history:: Adult Immunizations up to date, Client reports having NOT received the Covid vaccine. - Social history:: Smoking status: Patient reports the use of cigarette tobacco products, smokes one-half pack cigarettes per day. Screenin:49 Abuse screen: Denies threats or abuse. Denies injuries from another. Nutritional lp1 screening: No deficits noted. Tuberculosis screening: No symptoms or risk factors identified. Fall Risk None identified. Assessment: 09/05 00:12 General: Appears in no apparent distress. uncomfortable, Behavior is calm, cooperative. ll3 Pain: Complains of pain in Whole body. Neuro: Level of Consciousness is awake, alert, obeys commands, Oriented to person, place, time, situation. Cardiovascular: Patient's skin is warm and dry. Respiratory: Respiratory effort is even, unlabored, Respiratory pattern is regular, symmetrical. EENT: Denies difficulty swallowing. Derm: Rash noted that is draining clear fluid, itchy, red, on Whole body. 01:15 Reassessment: Patient appears in no apparent distress at this time. No changes from ll3 previously documented assessment. Patient and/or family updated on plan of care and expected duration. Pain level reassessed. 01:52 Reassessment: Patient appears in no apparent distress at this time. No changes from ll3 previously documented assessment. Patient and/or family updated on plan of care and expected duration. Pain level reassessed. Patient is alert, oriented x 3, equal unlabored respirations, skin warm/dry/pink. 03:40 Reassessment: Patient appears in no apparent distress at this time. No changes from ll3 previously documented assessment. Patient and/or family updated on plan of care and expected duration. Pain level reassessed. Patient is alert, oriented x 3, equal unlabored respirations, skin warm/dry/pink. Vital Signs: 09/04 22:50 BP 130 / 78; Pulse 102; Resp 18; Temp 98.3(TE); Pulse Ox 99% on R/A; Weight 149.69 kg lp1 (R); Height 5 ft. 7 in. (170.18 cm); Pain 6/10; 09/05 00:30 BP 114 / 66; Pulse 96; Resp 17; Pulse Ox 98% on R/A; ll3 01:51 BP 110 / 71; Pulse 93; Resp 18; Pulse Ox 97% on R/A; ll3 03:40 BP 115 / 59; Pulse 93; Resp 18; Pulse Ox 100% on R/A; ll3 09/04 22:50 Body Mass Index 51.69 (149.69 kg, 170.18 cm) lp1 ED Course: 09/04 22:29 Patient arrived in ED. kc5 22:48 Triage completed. lp1 22:48 Arm band placed on. lp1 22:49 Patient has correct armband on for positive identification. lp1 22:59 Vin Desai MD is Attending Physician. 7 09/05 00:33 Ulisses Moody RN is Primary Nurse. ll3 03:12 Lance Arita MD is Referral Physician. 7 03:58 No provider procedures requiring assistance completed. ll3 04:09 IV discontinued, intact, bleeding controlled, No redness/swelling at site. Pressure ll3 dressing applied. Administered Medications: 00:12 Drug: Benadryl (diphenhydrAMINE) 50 mg Route: PO; ll3 01:18 Follow up: Response: No adverse reaction ll3 00:12 Drug: Pepcid (famotidine) 20 mg Route: PO; ll3 01:18 Follow up: Response: No adverse reaction ll3 01:08 Drug: predniSONE 60 mg Route: PO; ll3 01:19 Follow up: Response: No adverse reaction ll3 03:55 Drug: DiFLUcan (fluconazole) 150 mg Route: PO; ll3 04:10 Follow up: Response: No adverse reaction ll3 Outcome: 03:13 Discharge ordered by . 7 04:09 Discharged to home ambulatory. ll3 04:09 Condition: stable 04:09 Discharge instructions given to patient, Instructed on discharge instructions, follow up and referral plans. medication usage, Demonstrated understanding of instructions, follow-up care, medications, Prescriptions given X 3. 04:12 Patient left the ED. 3 Signatures: Luzma Hughes RN RN lp1 Vin Desai MD MD 7 Ulisses Moody RN RN ll3 Cassandra Arriola kc5
--- NOTE | 2021-09-05 03:13 | EDPHYS ---
Physician Documentation [facility] Name: Kandis Juan Age: 41 yrs Sex: Female : 1980 Arrival Date: 09/04/2021 Time: 22:29 Bed 18 Private MD: ED Physician Vin Desai HPI: 09/05 00:00 This 41 yrs old Female presents to ER via Ambulatory with complaints of Rash. [facility] 00:00 The patient's rash thought to be caused by an unknown cause. The rash is located on the mh7 body diffusely. The rash can be described as erythematous, patchy. Onset: The symptoms/episode began/occurred 2 month(s) ago. Associated signs and symptoms: Pertinent positives: itching, Pertinent negatives: burning sensation, difficulty breathing, fever, nausea, Pain swelling of lips, swelling of throat, swelling of tongue, vomiting, wheezing. Severity of symptoms: At their worst the symptoms were moderate 3 weeks ago, in the emergency department the symptoms have improved moderately. Treatment given at home: OTC lotion/cream steroid lotion/cream, . 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 - Social history:: Smoking status: Patient reports the use of cigarette tobacco products, smokes one-half pack cigarettes per day. ROS: 09/05 00:00 Constitutional: Negative for fever, chills, and weight loss, Eyes: Negative for injury, mh7 pain, redness, and discharge, ENT: Negative for injury, pain, and discharge, Neck: Negative for injury, pain, and swelling, Cardiovascular: Negative for chest pain, palpitations, and edema, Respiratory: Negative for shortness of breath, cough, wheezing, and pleuritic chest pain, Abdomen/GI: Negative for abdominal pain, nausea, vomiting, diarrhea, and constipation, Back: Negative for injury and pain, : Negative for injury, bleeding, discharge, and swelling, MS/Extremity: Negative for injury and deformity, Neuro: Negative for headache, weakness, numbness, tingling, and seizure, Psych: Negative for depression, anxiety, suicide ideation, homicidal ideation, and hallucinations, Endocrine: Negative for neck swelling, polydipsia, polyuria, polyphagia, and marked weight changes, Hematologic/Lymphatic: Negative for swollen nodes, abnormal bleeding, and unusual bruising. Exam: 00:00 Constitutional: This is a well developed, well nourished patient who is awake, alert, mh7 and in no acute distress. Head/Face: Normocephalic, atraumatic. Eyes: Pupils equal round and reactive to light, extra-ocular motions intact. Lids and lashes normal. Conjunctiva and sclera are non-icteric and not injected. Cornea within normal limits. Periorbital areas with no swelling, redness, or edema. Neck: Trachea midline, no thyromegaly or masses palpated, and no cervical lymphadenopathy. Supple, full range of motion without nuchal rigidity, or vertebral point tenderness. No Meningismus. Cardiovascular: Regular rate and rhythm with a normal S1 and S2. No gallops, murmurs, or rubs. Normal PMI, no JVD. No pulse deficits. Respiratory: Lungs have equal breath sounds bilaterally, clear to auscultation and percussion. No rales, rhonchi or wheezes noted. No increased work of breathing, no retractions or nasal flaring. Abdomen/GI: Soft, non-tender, with normal bowel sounds. No distension or tympany. No guarding or rebound. No evidence of tenderness throughout. Back: No spinal tenderness. No costovertebral tenderness. Full range of motion. MS/ Extremity: Pulses equal, no cyanosis. Neurovascular intact. Full, normal range of motion. Neuro: Awake and alert, GCS 15, oriented to person, place, time, and situation. Cranial nerves II-XII grossly intact. Motor strength 5/5 in all extremities. Sensory grossly intact. Cerebellar exam normal. Normal gait. Psych: Awake, alert, with orientation to person, place and time. Behavior, mood, and affect are within normal limits. 00:00 Chest/axilla: Inspection: rash, of the Under breasts Palpation: is normal, Axilla: are mh7 normal, Lymph nodes: lymphadenopathy is not appreciated. 00:00 Skin: rash a mild rash is noted, rash can be described as nonspecific, on the right mh7 arm, left arm, right leg and left leg, Moderate erythematous rash under breasts and medial thighs bilaterally without swelling, discharge, induration, or tenderness.. Vital Signs: 09/04 22:50 BP 130 / 78; Pulse 102; Resp 18; Temp 98.3(TE); Pulse Ox 99% on R/A; Weight 149.69 kg lp1 (R); Height 5 ft. 7 in. (170.18 cm); Pain 6/10; 09/05 00:30 BP 114 / 66; Pulse 96; Resp 17; Pulse Ox 98% on R/A; ll3 01:51 BP 110 / 71; Pulse 93; Resp 18; Pulse Ox 97% on R/A; ll3 03:40 BP 115 / 59; Pulse 93; Resp 18; Pulse Ox 100% on R/A; ll3 09/04 22:50 Body Mass Index 51.69 (149.69 kg, 170.18 cm) lp1 MDM: 03:10 Differential diagnosis: impetigo, allergic reaction, Eczema, nonspecific dermatitis, mh7 rash, candidal rash. Data reviewed: vital signs, nurses notes, lab test result(s), CBC, electrolytes, hepatic panel. Data interpreted: Pulse oximetry: on room air is 97 %. Interpretation: normal. 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 Response to treatment: the patient's symptoms have markedly improved after treatment. 03:13 Patient medically screened. [facility] 09/05 00:24 Order name: Glucose, Ancillary Testing EDND 09/05 01:16 Order name: CBC with Diff; Complete Time: 02:57 [facility] 09/05 01:16 Order name: Basic Metabolic Panel; Complete Time: 02:57 [facility] 09/05 01:16 Order name: LFT's; Complete Time: 02:57 [facility] 09/04 23:45 Order name: Accucheck Blood Glucose; Complete Time: 00:29 [facility] 09/05 01:16 Order name: Saline Lock; Complete Time: 01:49 [facility] Administered Medications: 00:12 Drug: Benadryl (diphenhydrAMINE) 50 mg Route: PO; ll3 01:18 Follow up: Response: No adverse reaction ll3 00:12 Drug: Pepcid (famotidine) 20 mg Route: PO; ll3 01:18 Follow up: Response: No adverse reaction ll3 01:08 Drug: predniSONE 60 mg Route: PO; ll3 01:19 Follow up: Response: No adverse reaction ll3 03:55 Drug: DiFLUcan (fluconazole) 150 mg Route: PO; ll3 04:10 Follow up: Response: No adverse reaction ll3 Disposition Summary: 09/05/21 03:13 Discharge Ordered Location: Home [facility] Problem: an ongoing problem [facility] Symptoms: have improved [facility] Condition: Stable [facility] Diagnosis - Rash and other nonspecific skin eruption [facility] Followup: [facility] - With: Private Physician - When: 1 - 2 days - Reason: Worsening of condition, Recheck today's complaints, Continuance of care, Re-evaluation by your physician Followup: [facility] - With: Lance Arita MD - When: 1 - 2 days - Reason: Worsening of condition, Recheck today's complaints Discharge Instructions: - Discharge Summary Sheet [facility] - Rash, Adult, [id number] [facility] Forms: - Medication Reconciliation Form [facility] - Thank You Letter [facility] - Antibiotic Education [facility] - Prescription Opioid Use [facility] Prescriptions: - Benadryl 25 mg Oral Capsule - take 1 capsule by ORAL route every 6 hours As needed; 30 tablet; Refills: 0, [facility] Product Selection Permitted - Pepcid 20 mg Oral Tablet - take 1 tablet by ORAL route every 12 hours for 5 days; 10 tablet; Refills: 0, [facility] Product Selection Permitted - Prednisone 20 mg Oral Tablet - take 2 tablets by ORAL route once daily for 5 days; 10 tablet; Refills: 0, [facility] Product Selection Permitted Signatures: Dispatcher [employer] Luzma Mckeon RN RN lp1 Vin Desai MD MD 7 Ulisses Moody RN RN ll3
[2021-09-05] MEDS ORDERED: FLUCONAZOLE 100 MG TAB ONE (03:44)
[2021-09-05 04:29] VITALS: TEMP 98.3
[2021-09-05 04:33] VITALS: BP 115/59; O2SAT 100
== END 2021-09-05 04:12 | disposition home or self-care (01) ==
LOC: ER 22:26
DX: R21 Rash and other nonspecific skin eruption (principal); F17.210 Nicotine dependence, cigarettes, uncomplicated
CPT/HCPCS: 85025; 80048; 36415; 82947; 80076; J7512; 99283

== ENCOUNTER 2021-10-15 05:43 | Emergency (ER) | payer OTHER, SELFPAY ==
[2021-10-15 07:33] LABS: Absolute Lymphocytes (CBC) 0.9 K/uL (0.7-4.9); Hematocrit 33.3 % (36.0-45.0); Lymphocytes % 12.7 % (15.3-44.8); MPV 7.6 fL (7.6-11.3); RBC Red Blood Cell Count 3.96 M/uL (3.86-4.86)
[2021-10-15 07:35] LABS: ALT/SGPT 30 U/L (12-78); AST/SGOT 20 U/L (15-37); Alkaline Phosphatase 147 U/L (45-117); BUN Blood Urea Nitrogen 13 mg/dL (7-18); Bicarbonate 26 mmol/L (21-32); Bilirubin Total 0.3 mg/dL (0.2-1.0); Glucose Level 97 mg/dL (74-106); Potassium 3.7 mmol/L (3.5-5.1); Sodium Level 135 mmol/L (136-145)
[2021-10-15] MEDS ORDERED: HYDROCODONE/APAP 10/325 TAB ONE (08:58)
[2021-10-15] MEDS ORDERED: CLINDAMYCIN 600MG/D5W 0 MG/0 ML BAG IV ONE (08:59)
[2021-10-15] MEDS ORDERED: CLINDAMYCIN 900MG/D5W 900 MG/50 ML IVPB IV ONE (09:00)
--- NOTE | 2021-10-15 09:05 | ER ---
Nurse's Notes [facility] Name: Kandis Juan Age: 41 yrs Sex: Female : 1980 Arrival Date: 10/15/2021 Time: 05:47 Bed 6 Private MD: Diagnosis: Contusion of right knee;Cellulitis of left lower limb Presentation: 10/15 05:53 Chief complaint: Patient states: The patient states she had left leg surgery 8 months st1 ago. He left knee to the ankle is swollen and draining blood and puss. She states she fell 2 1/2 weeks ago at work landing on her right knee and it is very painful. Coronavirus screen: Vaccine status: Patient reports being unvaccinated. Ebola Screen: No symptoms or risks identified at this time. Risk Assessment: Do you want to hurt yourself or someone else? Patient reports no desire to harm self or others. Onset of symptoms. 05:53 Method Of Arrival: Ambulatory st1 05:53 Acuity: RONNY 3 st1 09:02 Initial Sepsis Screen: Does the patient meet any 2 criteria? No. Patient's initial jg9 sepsis screen is negative. Does the patient have a suspected source of infection? No. Patient's initial sepsis screen is negative. Triage Assessment: 05:56 General: Appears distressed, uncomfortable, obese, well groomed, Behavior is calm, st1 cooperative. Pain: Complains of pain in Left lower leg and right knee Pain does not radiate. Respiratory: No deficits noted. 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 - Social history:: Smoking status: Patient denies any tobacco usage or history of. Patient/guardian denies using alcohol, street drugs, IV drugs, tobacco products. Screenin:58 Abuse screen: Denies threats or abuse. Nutritional screening: No deficits noted. st1 Tuberculosis screening: No symptoms or risk factors identified. Fall Risk None identified. Fall in past 12 months (25 points). Secondary diagnosis (15 points) impaired mobility, IV access (20 points). Ambulatory Aid- None/Bed Rest/Nurse Assist (0 pts). Gait- Normal/Bed Rest/Wheelchair (0 pts) Mental Status- Oriented to own ability (0 pts). Total Tracy Fall Scale indicates Low Risk Score (25-44 pts). Fall prevention measures have been instituted. Side Rails Up X 2 Frequent Obs/Assesments occuring As available Patient and Family Educated on Fall Prevention Program and strategies. Assessment: 05:58 Reassessment: Patient appears in no apparent distress at this time. Patient is alert, st1 oriented x 3, equal unlabored respirations, skin warm/dry/pink. please see triage assessment. 08:06 Reassessment: Patient appears in no apparent distress at this time. Patient and/or ph family updated on plan of care and expected duration. Pain level reassessed. Patient is alert, oriented x 3, equal unlabored respirations, skin warm/dry/pink. Awaiting results of xray. 09:01 Reassessment: No changes from previously documented assessment. Pain: Complains of pain jg9 in left leg Pain currently is 8 out of 10 on a pain scale. 09:07 Reassessment: Patient appears in no apparent distress at this time. Patient and/or ph family updated on plan of care and expected duration. Pain level reassessed. Patient is alert, oriented x 3, equal unlabored respirations, skin warm/dry/pink. D/C pending completion of IV medication. Vital Signs: 05:53 BP 120 / 73; Pulse 72; Resp 16; Temp 97.8; Pulse Ox 100% on R/A; Weight 145.15 kg; st1 Height 5 ft. 6 in. (167.64 cm); Pain 7/10; 07:07 BP 120 / 77; Pulse 87; Resp 20 S; Pulse Ox 100% on R/A; as6 08:38 BP 126 / 89; Pulse 83; Resp 18; Pulse Ox 100% on R/A; ph 09:30 BP 124 / 85; Pulse 20; Resp 80 S; jg9 05:53 Body Mass Index 51.65 (145.15 kg, 167.64 cm) st1 ED Course: 05:47 Patient arrived in ED. 05:50 Hood Augustin, RN is Primary Nurse. as6 05:56 Triage completed. st1 05:56 Arm band placed on right wrist. st1 05:58 Patient has correct armband on for positive identification. Bed in low position. Call st1 light in reach. Side rails up X 1. Pulse ox on. NIBP on. 06:01 Mandeep Green NP is PHCP. pm1 06:01 Rubin Weir MD is Attending Physician. pm1 07:09 Inserted saline lock: 22 gauge in left forearm, using aseptic technique. ke1 07:55 Knee Right 3 View XRAY In Process Unspecified. EDMS 09:01 No apparent distress. Resting quietly. jg9 09:36 No provider procedures requiring assistance completed. jg9 09:36 IV discontinued. jg9 Administered Medications: 09:01 Drug: Nerinx (HYDROcodone-acetaminophen) 10 mg-325 mg 1 tabs {Note: RASS-0.} Route: PO; jg9 09:37 Follow up: Response: No adverse reaction; Pain is decreased jg9 09:01 Drug: Clindamycin 900 mg Route: IVPB; Infused Over: 30 mins; Site: left forearm; jg9 09:36 Follow up: IV Status: Completed infusion; IV Intake: 50ml jg9 Intake: 09:36 IV: 50ml; Total: 50ml. jg9 Outcome: 09:05 Discharge ordered by . pm1 09:36 Discharged to home ambulatory. jg9 09:36 Condition: stable 09:36 Discharge instructions given to patient, Instructed on discharge instructions, follow up and referral plans. Demonstrated understanding of instructions, follow-up care, medications, Prescriptions given X 3. 09:37 Patient left the ED. jg9 Signatures: Dispatcher [employer] EDMO Sugar Casillas, RN RN aa5 Regi Bass RN RN ph Mandeep Green, MILEY CIGARET[employer] MACHINES MECHANIC pm1 Janey Tena Ashby, RN RN as6 Katie Howard RN RN jg9 Lucina Whitman RN RN st1 Claire Banerjee RN RN ke1 Corrections: (The following items were deleted from the chart) 07:35 05:56 Allergies: No Known Allergies; st1 aa5 07:35 07:34 Allergies: Demerol; aa5 aa5 07:35 07:34 PMHx: sickle cell; aa5 aa5
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
[2021-10-15 09:53] VITALS: O2SAT 100
[2021-10-15 09:55] VITALS: BP 124/85
[2021-10-15 09:58] VITALS: TEMP 97.8
--- NOTE | 2021-10-15 10:40 | RAD REPORT ---
EXAM DESCRIPTION: RAD - Knee Right 3 View - 10/15/2021 7:55 am CLINICAL HISTORY: PAIN Fall, pain COMPARISON: No comparisons FINDINGS: Mild tricompartmental osteoarthritis. No fracture, dislocation or joint effusion.
== END 2021-10-15 09:37 | disposition home or self-care (01) ==
LOC: ER 05:43
DX: L03.116 Cellulitis of left lower limb (principal); S80.01XA Contusion of right knee, initial encounter; W01.0XXA Fall on same level from slipping, tripping and stumbling without subsequent striking against object, initial encounter
CPT/HCPCS: 36415; 80053; 85025; 96365; 99284

== ENCOUNTER 2021-12-10 02:05 | Emergency (ER) | payer SELFPAY ==
[2021-12-10] MEDS ORDERED: LORazepam 2 MG/ML VIAL ONE ×2 (02:21→03:28)
[2021-12-10 02:32] LABS: Absolute Lymphocytes (CBC) 1.5 K/uL (0.7-4.9); Hematocrit 36.1 % (36.0-45.0); Lymphocytes % 16.9 % (15.3-44.8); MPV 7.4 fL (7.6-11.3); RBC Red Blood Cell Count 4.31 M/uL (3.86-4.86)
[2021-12-10] MEDS ORDERED: NA CHLORIDE 0.9% 1,000 ML ONE ×3 (02:33→08:07)
[2021-12-10 02:38] LABS: Protime INR 1.13
[2021-12-10 02:53] LABS: ALT/SGPT 26 U/L (12-78); AST/SGOT 17 U/L (15-37); Albumin 3.5 g/dL (3.4-5.0); Alkaline Phosphatase 131 U/L (45-117); BUN Blood Urea Nitrogen 11 mg/dL (7-18); Bicarbonate 27 mmol/L (21-32); Bilirubin Direct < 0.1 mg/dL (0-0.2); Bilirubin Total 0.2 mg/dL (0.2-1.0); Creatine Phosphokinase 132 U/L (26-192); Glucose Level 107 mg/dL (74-106); Potassium 3.7 mmol/L (3.5-5.1); Sodium Level 139 mmol/L (136-145); Troponin High Sensitivity 5.4 pg/mL (<58.9)
[2021-12-10] MEDS ORDERED: ACETAMINOPHEN 325 MG TABLET ONE (02:58)
[2021-12-10] MEDS ORDERED: ACETAMINOPHEN 650MG/RECT SUPP PR ONE (03:08)
[2021-12-10 03:28] LABS: SARS-COV-2 RT PCR NEGATIVE (NEGATIVE)
[2021-12-10 03:32] LABS: Urine Blood Negative (Negative); Urine Glucose Negative (Negative); Urine Protein Negative (Negative); Urine Specific Gravity >=1.030 (1.005-1.030)
[2021-12-10 03:57] LABS: Barbiturates NEGATIVE (NEGATIVE); Benzodiazepines NEGATIVE (NEGATIVE); Cocaine NEGATIVE (NEGATIVE); METHAMPHETAM POSITIVE (NEGATIVE); Methadone NEGATIVE (NEGATIVE); Opiates NEGATIVE (NEGATIVE); Phencyclidine NEGATIVE (NEGATIVE); THC Cannibis POSITIVE (NEGATIVE)
--- NOTE | 2021-12-10 08:50 | ER ---
Nurse's Notes [facility] Name: Kandis Juan Age: 41 yrs Sex: Female : 1980 Arrival Date: 12/10/2021 Time: 02:07 Bed 2 Private MD: Diagnosis: Adverse effect of other drugs, medicaments and biological substances;Adverse effect of amphetamines;Bipolar disorder, unspecified;Obesity, unspecified Presentation: 12/10 02:07 Chief complaint: EMS states: "Orally ingested meth around 1 AM. Started having symptoms tw5 about 1:30. She was getting arrested and didn't want to get caught with it. Symptoms have been diaphoretic, Sinus tach, tremors. She denies chest pain, abdominal pain or difficulty breathing.". Coronavirus screen: Vaccine status: Patient reports being unvaccinated. Ebola Screen: Patient negative for fever greater than or equal to 101.5 degrees Fahrenheit, and additional compatible Ebola Virus Disease symptoms Patient denies exposure to infectious person. Patient denies travel to an Ebola-affected area in the 21 days before illness onset. Initial Sepsis Screen: Does the patient meet any 2 criteria? RR > 20 per min. Temp <36.0*C (96.8*F)) or > 38.3*C (100.9*F). HR > 90 bpm. Does the patient have a suspected source of infection? No. Patient's initial sepsis screen is negative. Risk Assessment: Do you want to hurt yourself or someone else? Patient reports no desire to harm self or others. Onset of symptoms was December 10, 2021 at 01:30. 02:07 Method Of Arrival: EMS: [facility] tw5 02:07 Acuity: RONNY 2 tw5 Triage Assessment: 02:12 General: Appears obese, Behavior is anxious. Pain: Denies pain. Cardiovascular:. Derm: tw5 Skin is diaphoretic. 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 - Social history:: Smoking status: Patient reports the use of cigarette tobacco products, smokes one-half pack cigarettes per day, Patient uses alcohol, on a daily basis. street drugs, marijuana, Methamphetamine (Meth). Screenin:00 The patient has not been NPO before screening. The patient is alert, able to follow tw5 commands. The patient exhibits slurred or garbled speech. The patient is exhibiting difficulty speaking. The patient does not exhibit difficulty understanding words. The patient is able to swallow own secretions with no drooling or need for suction. The patient did not tolerate one teaspoon of water. Drooling, immediate coughing, gurgling, or clearing of the throat was noted. Bedside swallow screening discontinued. Patient kept NPO until cleared by Speech Therapy or Physician. The patient failed the bedside swallow screening. The patient will be kept NPO until cleared by Speech Therapy or Physician. Provider notified of bedside swallow screening results: Vin Desai MD. 03:24 Abuse screen: Denies threats or abuse. Denies injuries from another. Nutritional tw5 screening: Difficulty chewing/swallowing? Yes. Tuberculosis screening:. Fall Risk IV access (20 points). Mental Status- Overestimates/Forgets Limitations (15 pts.). Assessment: 02:15 General: Appears obese, Behavior is cooperative, anxious, restless. Neuro: Level of tw5 Consciousness is awake, alert, obeys commands, Oriented to person, place, time, situation. Cardiovascular: Rhythm is sinus tachycardia. Respiratory: Airway is patent Trachea midline Respiratory effort is even, Respiratory pattern is tachypnea. 02:48 General: Spoke to poison control . They suggested cooling measures, tw5 seizure precations, repeat ekg in 4 hours, and to keep her on cardiac monitoring. . 03:24 General:. tw5 03:56 Reassessment: pt foaming at mouth and requiring suction for her secretions. pts O2 sats sm5 84% on RA. Overdose: 02:15 [place] Suicide Severity Screening: "In the past month, have you wished you were tw5 or wished you could go to sleep and not wake up?" Patient responds "no." "In the past month, have you actually had any thoughts of killing yourself?" Patient responds "no." "In your lifetime, have you ever done anything, started to do anything, or prepared to do anything to end your life?" Patient responds "no.". 14:01 [place] Suicide Severity Screening: "In the past month, have you wished you were retana or wished you could go to sleep and not wake up?" Patient responds "yes." Based off client's responses, additional C-SSRS screening questions required. 14:02 [place] Suicide Severity Screening: "In the past month, have you actually had any retana thoughts of killing yourself?" Patient responds "yes." Based off client's responses, additional C-SSRS screening questions required. Vital Signs: 02:07 BP 122 / 111; Pulse 120; Resp 24; Temp 101.1; Pulse Ox 96% on R/A; Weight 127.01 kg; tw5 Height 5 ft. 7 in. (170.18 cm); Pain 0/10; 03:24 BP 122 / 111; Pulse 122; Resp 28; Temp 99.2; Pulse Ox 95% on R/A; tw5 03:55 Pulse Ox 84% on R/A; sm5 04:02 Pulse Ox 97% on 4 lpm NC; sm5 05:07 BP 95 / 59; Pulse 113; Resp 26; Temp 98.8(O); Pulse Ox 99% on 4 lpm NC; sm5 07:00 BP 117 / 74; Pulse 103; Resp 18; Pulse Ox 96% on 4 lpm NC; ph 08:00 BP 136 / 73; Pulse 99; Resp 18; Pulse Ox 99% on 4 lpm NC; ph 09:00 BP 136 / 84; Pulse 96; Resp 18; Pulse Ox 100% on 4 lpm NC; ph 10:00 BP 134 / 71; Pulse 94; Resp 18; Pulse Ox 97% on R/A; ph 11:00 BP 133 / 85; Pulse 90; Resp 16; Pulse Ox 99% on R/A; ph 12:00 BP 149 / 88; Pulse 91; Resp 18; Pulse Ox 98% on R/A; ph 13:00 BP 138 / 84; Pulse 91; Resp 16; Temp 97.9; Pulse Ox 99% on R/A; ph 02:07 Body Mass Index 43.85 (127.01 kg, 170.18 cm) tw5 02:07 BGL 106 tw5 [place] Coma Score: 12:00 Eye Response: spontaneous(4). Verbal Response: oriented(5). Motor Response: obeys ph commands(6). Total: 15. ED Course: 02:07 Patient arrived in ED. tw5 02:12 Triage completed. tw5 02:12 Arm band placed on right wrist. tw5 02:13 Vin Desai MD is Attending Physician. [facility] 02:23 Meghana Olsen, RN is Primary Nurse. sm5 02:23 Acetaminophen Sent. sm5 02:23 Basic Metabolic Panel Sent. sm5 02:23 CBC with Diff Sent. sm5 02:23 ETOH Level Sent. sm5 02:24 Hepatic Function Sent. sm5 02:24 PT-INR Sent. sm5 02:24 Ptt, Activated Sent. sm5 02:24 Salicylate Sent. sm5 02:24 Maintain EMS IV. Dressing intact. Good blood return noted. Site clean \\T\\ dry. Gauge \\T\\ sm 5 site: 18G R AC. 02:41 Troponin High Sensitivity Sent. tw5 02:41 Creatine Phosphokinase Sent. tw5 02:41 Acetaminophen Sent. tw5 02:41 Basic Metabolic Panel Sent. tw5 02:41 ETOH Level Sent. tw5 02:41 Hepatic Function Sent. tw5 02:41 Salicylate Sent. tw5 02:42 Urine Drug Screen Sent. tw5 02:42 COVID-19/FLU A+B (Document "Date of Onset" if Symptomatic) Sent. sm5 02:45 Inserted saline lock: 20 gauge in left forearm, using aseptic technique. sm5 03:00 Urine collected: Harrell catheter specimen. Harrell cath inserted, using sterile technique, tw5 18 Fr., by nd, balloon inflated, to gravity drainage, urine specimen collected. 03:24 Patient has correct armband on for positive identification. Placed in gown. Bed in low tw5 position. Side rails up X 1. Side rails up X2. Seizure precautions initiated. Client placed on continuous cardiac and pulse oximetry monitoring. NIBP monitoring applied. Door closed. Noise minimized. Moved to private room. Warm blanket given. Verbal reassurance given. 06:06 Chest Single View XRAY In Process Unspecified. EDMS 07:07 Attending Physician role handed off by Vin Desai MD kahlil 07:07 Wellington Ren MD is Attending Physician. kahlil 07:56 EKG done, by ED staff, reviewed by Wellington Ren MD. mb7 08:49 Jorge Mccord MD is Referral Physician. [facility] 14:02 No provider procedures requiring assistance completed. Inserted IV discontinued, retana intact, Pressure dressing applied. 14:03 Harrell cath removed intact, balloon deflated. retana Administered Medications: 02:20 Drug: Ativan (LORazepam) 1 mg Route: IVP; Site: right antecubital; 5 03:27 Follow up: Response: No adverse reaction; RASS: Agitated (+2) tw5 02:35 Drug: NS 0.9% 1000 ml Route: IV; Rate: 1 bolus; Site: right antecubital; sm5 03:41 Follow up: IV Status: Completed infusion; IV Intake: 1000ml 5 03:01 CANCELLED (Other Intervention Used): Tylenol 650 mg PO once tw5 03:08 Drug: Tylenol Suppository 650 mg Route: TX; tw5 03:28 Follow up: Response: No adverse reaction; Temperature is decreased tw5 03:24 Drug: Ativan (LORazepam) 1 mg Route: IVP; Site: right antecubital; tw5 05:07 Drug: NS 0.9% 1000 ml Route: IV; Rate: 1 bolus; Site: left forearm; sm5 08:17 Drug: NS 0.9% 1000 ml Route: IV; Rate: 1 bolus; Site: right antecubital; retana Intake: 03:41 IV: 1000ml; Total: 1000ml. [facility] Outcome: 08:50 Discharge ordered by . [facility] 14:02 Discharged to home ambulatory. 14:02 Condition: good 14:02 Discharge instructions given to patient. 14:03 Patient left the ED. retana Signatures: Dispatcher [employer] EDME Wellington Ren MD MD cha Hall, Patricia RN RN Vin Mena MD MD mh7 Wood, Tiffany 5 Leslie Castrejon 7 Meghana Olsen RN RN [facility] Liss Levy RN RN retana Corrections: (The following items were deleted from the chart) 02:25 02:23 Troponin High Sensitivity+C.LAB.BRZ drawn and sent. [facility] EDMS 02:25 02:23 CREATINE PHOSPHOKINASE+C.LAB.BRZ drawn and sent. sm5 EDMS 02:40 02:07 Acuity: RONNY 3 tw5 tw5
--- NOTE | 2021-12-10 08:50 | EDPHYS ---
Physician Documentation [facility] Name: Kandis Juan Age: 41 yrs Sex: Female : 1980 Arrival Date: 12/10/2021 Time: 02:07 Bed 2 Private MD: ED Physician Wellington Ren HPI: 12/10 02:31 This 41 yrs old Female presents to ER via EMS with complaints of Drug Abuse. mh7 02:31 The patient presents to the emergency department after a known overdose, a result of mh7 recreational substance abuse, Took to avoid arrest. Context: Method: the patient has a confirmed or suspected ingestion, Methamphetamines, Time: today, at 01:00, Extent: $100 worth of Methamphetamine, the OD/poisoning occurred at on a street or driveway, and was witnessed by a friend, Psychiatric history: the patient has a known psychiatric disorder, bipolar disorder, Previous OD/poisoning history: It is unknown if the patient has had similar previous episodes. Associated signs and symptoms: Pertinent positives: diaphoresis, palpitations, tremors, Pertinent negatives: apnea, auditory hallucinations, burning of skin, decreased level of consciousness, depression, diarrhea, dizziness, incontinence, loss of consciousness, nausea, shortness of breath, tearfulness, visual hallucinations, vomiting. Severity of symptoms: At their worst the symptoms were moderate today, in the emergency department the symptoms are unchanged. Patient admits to smoking methamphetamine, but ingested more when her vehicle got pulled over by police in an attempt to avoid getting arrested.. [facility]: 02:12 LMP 10/29/2021 tw5 Historical: - Allergies: 02:12 No Known Allergies; tw - Home Meds: 02:12 None [Active]; tw - PMHx: 02:12 Bipolar disorder; tw - PSHx: 02:12 section; Leg surgery; tw - Immunization history:: Flu vaccine is not up to date. - Social history:: Smoking status: Patient reports the use of cigarette tobacco products, smokes one-half pack cigarettes per day, Patient uses alcohol, on a daily basis. street drugs, marijuana, Methamphetamine (Meth). ROS: 02:31 Constitutional: Negative for fever, chills, and weight loss, Eyes: Negative for injury, mh7 pain, redness, and discharge, ENT: Negative for injury, pain, and discharge, Neck: Negative for injury, pain, and swelling, Respiratory: Negative for shortness of breath, cough, wheezing, and pleuritic chest pain, Abdomen/GI: Negative for abdominal pain, nausea, vomiting, diarrhea, and constipation, Back: Negative for injury and pain, : Negative for injury, bleeding, discharge, and swelling, MS/Extremity: Negative for injury and deformity, Skin: Negative for injury, rash, and discoloration, Neuro: Negative for headache, weakness, numbness, tingling, and seizure, Psych: Negative for depression, anxiety, suicide ideation, homicidal ideation, and hallucinations, Allergy/Immunology: Negative for hives, rash, and allergies, Endocrine: Negative for neck swelling, polydipsia, polyuria, polyphagia, and marked weight changes, Hematologic/Lymphatic: Negative for swollen nodes, abnormal bleeding, and unusual bruising. Exam: 02:31 Head/Face: Normocephalic, atraumatic. Eyes: Pupils equal round and reactive to light, mh7 extra-ocular motions intact. Lids and lashes normal. Conjunctiva and sclera are non-icteric and not injected. Cornea within normal limits. Periorbital areas with no swelling, redness, or edema. Neck: Trachea midline, no thyromegaly or masses palpated, and no cervical lymphadenopathy. Supple, full range of motion without nuchal rigidity, or vertebral point tenderness. No Meningismus. Chest/axilla: Normal chest wall appearance and motion. Nontender with no deformity. No lesions are appreciated. 02:31 Abdomen/GI: Soft, non-tender, with normal bowel sounds. No distension or tympany. No guarding or rebound. No evidence of tenderness throughout. Back: No spinal tenderness. No costovertebral tenderness. Full range of motion. Skin: Warm, dry with normal turgor. Normal color with no rashes, no lesions, and no evidence of cellulitis. MS/ Extremity: Pulses equal, no cyanosis. Neurovascular intact. Full, normal range of motion. 02:31 Constitutional: The patient appears alert, awake, anxious. 02:31 Cardiovascular: Rate: tachycardic, Rhythm: regular, Pulses: no pulse deficits are appreciated, Heart sounds: normal, normal S1and S2, Edema: is not appreciated, JVD: is not appreciated. 02:31 Respiratory: mild respiratory distress is noted, Respirations: tachypnea, that is mild, Breath sounds: are clear throughout, Respiratory rate: 24 02:31 Neuro: Orientation: is normal, Mentation: is normal, Memory: is normal, Cranial nerves: grossly normal, Cerebellar function: is grossly normal, Motor: is normal, Sensation: is normal, Gait: not tested. seizure activity, is not displayed by the patient, Abnormal movements: there are no abnormal movements. 02:31 Psych: Behavior/mood is cooperative, anxious, Affect is Oriented to person, place, time, Patient has no thoughts/intents to harm self or others. Judgement / Insight is normal. Memory is normal. Delusions/hallucinations are not present. 07:51 ECG was reviewed by the Attending Physician. [facility] 07:58 ECG was reviewed by the Attending Physician. [facility] Vital Signs: 02:07 BP 122 / 111; Pulse 120; Resp 24; Temp 101.1; Pulse Ox 96% on R/A; Weight 127.01 kg; tw5 Height 5 ft. 7 in. (170.18 cm); Pain 0/10; 03:24 BP 122 / 111; Pulse 122; Resp 28; Temp 99.2; Pulse Ox 95% on R/A; tw5 03:55 Pulse Ox 84% on R/A; sm5 04:02 Pulse Ox 97% on 4 lpm NC; sm5 05:07 BP 95 / 59; Pulse 113; Resp 26; Temp 98.8(O); Pulse Ox 99% on 4 lpm NC; sm5 07:00 BP 117 / 74; Pulse 103; Resp 18; Pulse Ox 96% on 4 lpm NC; ph 08:00 BP 136 / 73; Pulse 99; Resp 18; Pulse Ox 99% on 4 lpm NC; ph 09:00 BP 136 / 84; Pulse 96; Resp 18; Pulse Ox 100% on 4 lpm NC; ph 10:00 BP 134 / 71; Pulse 94; Resp 18; Pulse Ox 97% on R/A; ph 11:00 BP 133 / 85; Pulse 90; Resp 16; Pulse Ox 99% on R/A; ph 12:00 BP 149 / 88; Pulse 91; Resp 18; Pulse Ox 98% on R/A; ph 13:00 BP 138 / 84; Pulse 91; Resp 16; Temp 97.9; Pulse Ox 99% on R/A; ph 02:07 Body Mass Index 43.85 (127.01 kg, 170.18 cm) tw5 02:07 BGL 106 tw5 [place] Coma Score: 12:00 Eye Response: spontaneous(4). Verbal Response: oriented(5). Motor Response: obeys ph commands(6). Total: 15. MDM: 07:07 Patient medically screened. kahlil 07:10 Transition of care: After a detail discussion of the patient's case, care is 7 transferred to Wellington Ren MD. 07:46 Differential diagnosis: over medication. Data reviewed: vital signs, nurses notes, EMS kahlil record, lab test result(s), EKG, radiologic studies, plain films. Data interpreted: alarm security or surveillance monitor: rate is 113 beats/min, rhythm is regular, Pulse oximetry: on room air is 99 %. Test interpretation: by ED physician or midlevel provider: ECG, plain radiologic studies. Counseling: I had a detailed discussion with the patient and/or guardian regarding: the historical points, exam findings, and any diagnostic results supporting the discharge/admit diagnosis, lab results, radiology results, the need for outpatient follow up. 12/10 02:15 Order name: Acetaminophen; Complete Time: 04:09 12/10 02:15 Order name: Basic Metabolic Panel; Complete Time: 04:09 tw12/10 02:15 Order name: CBC with Diff; Complete Time: 04:09 tw12/10 02:15 Order name: ETOH Level; Complete Time: 04:09 tw12/10 02:15 Order name: Hepatic Function; Complete Time: 04:09 tw12/10 02:15 Order name: PT-INR; Complete Time: 04:09 tw12/10 02:15 Order name: Ptt, Activated; Complete Time: 04:09 tw12/10 02:15 Order name: Salicylate; Complete Time: 04:09 tw12/10 02:15 Order name: Urine Drug Screen; Complete Time: 04:09 tw5 12/10 02:26 Order name: Creatine Phosphokinase; Complete Time: 04:09 EDMS 12/10 02:26 Order name: Troponin High Sensitivity; Complete Time: 04:09 EDKS 12/10 02:31 Order name: COVID-19/FLU A+B (Document "Date of Onset" if Symptomatic); Complete Time: mh7 04:09 12/10 02:15 Order name: EKG; Complete Time: 02:16 12/10 02:15 Order name: EKG - Nurse/Tech; Complete Time: 02:23 12/10 02:15 Order name: IV Saline Lock; Complete Time: 02:23 12/10 03:32 Order name: Urine Dipstick-Ancillary; Complete Time: 04:09 EDMS 12/10 05:06 Order name: Chest Single View XRAY; Complete Time: 13:08 [facility] 12/10 07:45 Order name: Magnesium; Complete Time: 13:08 [facility] 12/10 07:45 Order name: NT PRO-BNP; Complete Time: 13:08 [facility] 12/10 07:45 Order name: Troponin HS; Complete Time: 13:08 [facility] 12/10 02:15 Order name: Labs collected and sent; Complete Time: 02:23 12/10 02:15 Order name: Suicide Precautions; Complete Time: 02:17 12/10 02:15 Order name: Suicide Screening ([place]); Complete Time: 02:17 12/10 02:15 Order name: Urine Dipstick-Ancillary (obtain specimen); Complete Time: 03:32 12/10 02:15 Order name: Urine Test (obtain specimen); Complete Time: 03:32 12/10 03:01 Order name: Cath; Complete Time: 03:24 12/10 07:45 Order name: Cardiac monitoring; Complete Time: 08:01 [facility] 12/10 07:45 Order name: O2 Per Protocol; Complete Time: 08: [facility] 12/10 07:45 Order name: O2 Sat Monitoring; Complete Time: 08:01 [facility] EC:51 Rate is 118 beats/min. Rhythm is regular. QRS [place] is Normal. ID interval is normal. [facility] QRS interval is normal. QT interval is normal. No Q waves. T waves are Normal. No ST changes noted. Clinical impression: Sinus tachycardia and No evidence of ischemia. Interpreted by me. Reviewed by me. 07:58 Rate is 104 beats/min. Rhythm is regular. QRS [place] is Normal. ID interval is normal. [facility] QRS interval is normal. QT interval is normal. No Q waves. T waves are Normal. No ST changes noted. Clinical impression: Sinus tachycardia and No evidence of ischemia. Interpreted by me. Reviewed by me. Administered Medications: 02:20 Drug: Ativan (LORazepam) 1 mg Route: IVP; Site: right antecubital; sm5 03:27 Follow up: Response: No adverse reaction; RASS: Agitated (+2) tw5 02:35 Drug: NS 0.9% 1000 ml Route: IV; Rate: 1 bolus; Site: right antecubital; sm5 03:41 Follow up: IV Status: Completed infusion; IV Intake: 1000ml sm5 03:01 CANCELLED (Other Intervention Used): Tylenol 650 mg PO once tw5 03:08 Drug: Tylenol Suppository 650 mg Route: ID; tw5 03:28 Follow up: Response: No adverse reaction; Temperature is decreased tw5 03:24 Drug: Ativan (LORazepam) 1 mg Route: IVP; Site: right antecubital; tw5 05:07 Drug: NS 0.9% 1000 ml Route: IV; Rate: 1 bolus; Site: left forearm; sm5 08:17 Drug: NS 0.9% 1000 ml Route: IV; Rate: 1 bolus; Site: right antecubital; retana Disposition Summary: 12/10/21 08:50 Discharge Ordered Location: Home kahlil Problem: new kahlil Symptoms: have improved kahlil Condition: Stable kahlil Diagnosis - Adverse effect of other drugs, medicaments and biological substances kahlil - Adverse effect of amphetamines kahlil - Bipolar disorder, unspecified kahlil - Obesity, unspecified kahlil Followup: kahlil - With: Private Physician - When: 2 - 3 days - Reason: Recheck today's complaints, Continuance of care, Re-evaluation by your physician Followup: kahlil - With: - When: 2 - 3 days - Reason: Recheck today's complaints, Continuance of care, Re-evaluation by your physician Discharge Instructions: - Discharge Summary Sheet kahlil - Amphetamines Use Disorder kahlil - Bipolar 1 Disorder kahlil - Obesity, Adult kahlil - Methamphetamines Use Disorder kahlil - Obesity, Adult, [place] kahlil - Supporting Someone With Bipolar Disorder kahlil Forms: - Medication Reconciliation Form kahlil - Thank You Letter kahlil - Antibiotic Education kahlil - Prescription Opioid Use kahlil Signatures: Dispatcher [employer] Wellington Goldstein MD MD cha Holmes, Maurice, MD MD Graciela Lopez tw5 Meghana Olsen RN RN 5 Liss Levy RN RN retana Corrections: (The following items were deleted from the chart) 02:25 02:17 CREATINE PHOSPHOKINASE+C.LAB.BRZ ordered. EDMS EDMS 02:25 02:17 Troponin High Sensitivity+C.LAB.BRZ ordered. EDMS EDMS 03:01 02:30 Tylenol 650 mg PO once ordered. mh7 tw5 14:03 08:49 Orthostatics ordered. kahlil ph
--- NOTE | 2021-12-10 08:57 | RAD REPORT ---
EXAM DESCRIPTION: RAD - Chest Single View - 12/10/2021 6:04 am CLINICAL HISTORY: CONGESTION COMPARISON: No comparisons FINDINGS: Lines: None. Lungs: Widespread hazy opacities with low lung volumes. Pleural: No identifiable pleural effusions. Cardiac: Cardiomegaly. Bones: No acute fractures. Other: IMPRESSION: Low lung volumes which accentuates the pulmonary vasculature. Edema difficult to exclude .
[2021-12-10 09:02] LABS: Magnesium 1.9 mg/dL (1.8-2.4); Troponin High Sensitivity 19.8 pg/mL (<58.9)
[2021-12-10 15:04] VITALS: BP 95/59; TEMP 98.8; O2SAT 99
--- NOTE | 2021-12-12 09:02 | EKG ---
Test Date: 2021-12-10 Test Time: 02:10:05 [employer] Director: TRI MEASUREMENT RESULTS: Intervals: Rate: 118 GA: 130 QRSD: 90 QT: 322 QTc: 451 [place]: P: 47 GA: 130 QRS: 27 T: 52 INTERPRETIVE STATEMENTS: Sinus tachycardia Otherwise normal ECG No previous ECG available for comparison Electronically Signed On 12-12-21 08:57:06 CDT by Buzz Villalobos
== END 2021-12-10 14:03 | disposition home or self-care (01) ==
LOC: ER 02:05
DX: R00.2 Palpitations (principal); T43.625A Adverse effect of amphetamines, initial encounter; T50.995A Adverse effect of other drugs, medicaments and biological substances, initial encounter; F31.9 Bipolar disorder, unspecified; E66.9 Obesity, unspecified; Z68.41 Body mass index [BMI] 40.0-44.9, adult; F17.210 Nicotine dependence, cigarettes, uncomplicated
CPT/HCPCS: 0240U; 36415; 51702; 71045; 80048; 80076; 80307; 80320; 80329; 81003; 82550; 83735; 83880; 84484; 85025; 85610; 85730; 93005; 96361; 96374; 99285; J7030

== ENCOUNTER 2022-12-08 22:29 | Inpatient (IN) | payer OTHER, SELFPAY ==
[2022-12-08 23:57] LABS: Absolute Lymphocytes (CBC) 0.5 K/uL (0.7-4.9); Lymphocytes % 3.4 % (15.3-44.8); MCV 82.6 fL (80-100); MPV 7.3 fL (7.6-11.3)
[2022-12-09 00:01] LABS: Protime INR 1.52
[2022-12-09 00:12] LABS: Bilirubin Total 0.7 mg/dL (0.2-1.0); Potassium 3.4 mEq/L (3.5-5.1); Protein, Total 8.3 g/dL (6.4-8.2)
[2022-12-09] MEDS ORDERED: NA CHLORIDE 0.9% 1,000 ML ONE (00:12)
[2022-12-09] MEDS ORDERED: NA CHLORIDE 0.9% 250 ML ONE (00:12)
[2022-12-09] MEDS ORDERED: VANCOMYCIN 1 GM/VIAL ONE (00:12)
[2022-12-09] MEDS ORDERED: ONDANSETRON 4 MG/2 ML VIAL ONE (00:12)
[2022-12-09] MEDS ORDERED: MORPHINE 4 MG/ML SYR ONE (00:12)
[2022-12-09] MEDS ORDERED: NA CHLORIDE 0.9% 100 ML ONE (00:13)
[2022-12-09] MEDS ORDERED: PIPERACIL/TAZO 3.375 GM VIAL IV ONE (00:17)
--- NOTE | 2022-12-09 00:47 | ER ---
Nurse's Notes [facility] Name: Kandis Juan Age: 42 yrs Sex: Female : 1980 Arrival Date: 12/08/2022 Time: 22:29 Bed 5 Private MD: Diagnosis: Cellulitis of left lower limb;Sepsis, left lower extremity cellulitis, tachycardia, dehydration Presentation: 12/08 23:16 Chief complaint: Patient states: swelling, redness and warm to touch to left lower leg, vg1 stated redness and swelling began yesterday. Pt also stated body aches and has a hx of cellulitis to the Left leg. Coronavirus screen: Vaccine status: Patient reports being unvaccinated. Ebola Screen: Patient negative for fever greater than or equal to 101.5 degrees Fahrenheit, and additional compatible Ebola Virus Disease symptoms Patient denies exposure to infectious person. Patient denies travel to an Ebola-affected area in the 21 days before illness onset. Initial Sepsis Screen: Does the patient meet any 2 criteria? HR > 90 bpm. Does the patient have a suspected source of infection? Yes: If YES to both, name of provider notified: Dave Rios MD. Risk Assessment: Do you want to hurt yourself or someone else? Patient reports no desire to harm self or others. Onset of symptoms was December 07, 2022. 23:16 Method Of Arrival: Wheelchair vg1 23:16 Acuity: RONNY 3 vg1 Triage Assessment: 23:21 General: Appears in no apparent distress. uncomfortable, Behavior is calm, cooperative. vg1 Pain: Complains of pain in left aparicio and anterior aspect of left ankle Pain currently is 9 out of 10 on a pain scale. Derm: Skin is red, Skin temperature is warm swelling to left lower leg. 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 - Social history:: Smoking status: Patient reports the use of cigarette tobacco products, smokes one-half pack cigarettes per day. - Family history:: not pertinent. Screenin:58 Abuse screen: Denies threats or abuse. Nutritional screening: No deficits noted. vg1 Tuberculosis screening: No symptoms or risk factors identified. 12/09 01:31 [facility] ED Fall Risk Assessment (Adult) History of falling in the last 3 months, vc1 including since admission No falls in past 3 months (0 pts) Confusion or Disorientation No (0 pts) Intoxicated or Sedated No (0 pts) Impaired Gait No (0 pts) Mobility Assist Device Used No (0 pt) Altered Elimination No (0 pt) Score/Fall Risk Level 0 - 2 = Low Risk Oriented to surroundings, Maintained a safe environment, Educated pt \T\ family on fall prevention, incl call for assistance when getting out of bed. Assessment: 01:29 Reassessment: No changes from previously documented assessment. Patient and/or family vc1 updated on plan of care and expected duration. Pain level reassessed. Vital Signs: 12/08 23:16 BP 101 / 74; Pulse 115; Resp 20; Temp 99.4(O); Pulse Ox 96% on R/A; Weight 145.15 kg; vg1 Height 5 ft. 6 in. ; Pain 9/10; 12/09 00:00 BP 120 / 76; Pulse 104; Resp 19; Pulse Ox 97% ; vc1 01:00 BP 159 / 89; Pulse 105; Resp 22; Pulse Ox 92% ; vc1 12/08 23:16 Body Mass Index 51.65 (145.15 kg, 167.64 cm) vg1 12/08 23:16 Pain Scale: Adult 1 ED Course: 12/08 22:35 Patient arrived in ED. ja2 23:06 Dave Rios MD is Attending Physician. sp4 23:21 Triage completed. vg1 23:21 Arm band placed on. vg1 23:30 Inserted saline lock: 22 gauge in right antecubital area, using aseptic technique. vg1 Blood collected. 23:35 First set of blood cultures drawn by me. vg1 23:50 Second set of blood cultures drawn by me. vg1 23:57 Maria Luisa Young RN is Primary Nurse. vg1 23:58 Patient has correct armband on for positive identification. Bed in low position. Call vg1 light in reach. Client placed on continuous cardiac and pulse oximetry monitoring. NIBP monitoring applied. 05 00:46 Russ Morales MD is Hospitalizing Provider. sp4 00:51 Extremity Venous Uni Ltd US In Process Unspecified. EDMS 02:04 No provider procedures requiring assistance completed. Patient admitted, IV remains in vc1 place. Administered Medications: 00:17 Drug: Ondansetron IVP 4 mg Route: IVP; Site: left antecubital; vc1 01:00 Follow up: Response: No adverse reaction; Marked relief of symptoms vc1 00:17 Drug: morphine IVP or IV 4 mg Route: IVP; Infused Over: 4 mins; Site: left antecubital; vc1 01:00 Follow up: Response: No adverse reaction; Marked relief of symptoms; Pain is decreased vc1 00:26 Drug: Piperacillin-Tazobactam IVPB 3.375 grams Route: IVPB; Infused Over: 60 mins; vc1 Site: left antecubital; 01:06 Follow up: IV Status: Completed infusion; IV Intake: 100ml vc1 00:26 Drug: NS 0.9% IV 1000 ml Route: IV; Rate: 1 bolus; Site: left antecubital; vc1 01:30 Follow up: IV Status: Completed infusion; IV Intake: 1000ml vc1 01:28 Drug: vancoMYCIN IVPB 1 grams Route: IVPB; Infused Over: 2 hrs; Site: left antecubital; vc1 02:05 Follow up: IV Status: Infusion continued upon admission; IV Intake: 200ml vc1 01:47 Not Given (Other Intervention Used): NS 0.9% with KCl IV 40 mEq/L 1000 ml IV at 100 vc1 ml/hr continuous Medication: 12/08 23:58 VIS not applicable for this client. vg1 Intake: 12/09 01:06 IV: 100ml; Total: 100ml. vc1 01:30 IV: 1000ml; Total: 1100ml. vc1 02:05 IV: 200ml; Total: 1300ml. vc1 Outcome: 00:46 Decision to Hospitalize by Provider. sp4 02:04 Admitted to Med/surg accompanied by tech, via stretcher, room 220. vc1 02:04 Condition: good 02:04 Instructed on the need for admit. 02:04 Patient left the ED. vc1 Signatures: Dispatcher [employer] EDMaria Luisa Kumar RN RN vg1 Khadra Roberson Vanessa RN RN vc1 Dave Rios MD MD sp4 Corrections: (The following items were deleted from the chart) 00:01 12/08 23:58 Inserted saline lock: 22 gauge in right antecubital area, using aseptic vg1 technique. Blood collected. vg1
--- NOTE | 2022-12-09 00:47 | EDPHYS ---
Physician Documentation [facility] Name: Kandis Juan Age: 42 yrs Sex: Female : 1980 Arrival Date: 12/08/2022 Time: 22:29 Bed 5 Private MD: ED Physician Dave Rios HPI: 12/09 00:36 This 42 yrs old Female presents to ER via Wheelchair with complaints of Leg sp4 Pain, General Weakness. 00:36 42-year-old female with history of bipolar disorder and prior cellulitis 4 years ago sp4 presents with cute onset of pain redness swelling left lower extremity up to the knee similar to her prior cellulitis. Patient states that she has generalized weakness as well reported feeling badly and reported vomiting as well. Patient reports several episodes of vomiting starting this morning. Onset of leg redness was yesterday. . 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 - Social history:: Smoking status: Patient reports the use of cigarette tobacco products, smokes one-half pack cigarettes per day. - Family history:: not pertinent. ROS: 12/09 00:36 Constitutional: Negative for fever, and weight loss, positive for generalized weakness, sp4 shaking chills, and some diaphoresis. Eyes: Negative for injury, pain, redness, and discharge, ENT: Negative for injury, pain, and discharge, Neck: Negative for injury, pain, and swelling, Cardiovascular: Negative for chest pain, palpitations, and edema, Respiratory: Negative for shortness of breath, cough, wheezing, and pleuritic chest pain, Abdomen/GI: Negative for abdominal pain, diarrhea, and constipation, positive for nausea and vomiting Back: Negative for injury and pain, : Negative for injury, bleeding, discharge, and swelling, MS/Extremity: Negative for injury and deformity, positive for left lower extremity redness, swelling, pain Skin: Negative for injury, rash, positive for left lower extremity redness, swelling, pain Neuro: Negative for headache, weakness, numbness, tingling, and seizure, Psych: Negative for depression, anxiety, Allergy/Immunology: Negative for hives, rash, and allergies Endocrine: Negative for neck swelling, polydipsia, polyuria, polyphagia, and weight changes Hematologic/Lymphatic: Negative for swollen nodes, abnormal bleeding, and unusual bruising Exam: 00:36 Constitutional: This is a well developed, well nourished patient who is awake, alert, sp4 positive for ill-appearing female, nontoxic-appearing, tachycardic, mild diaphoresis. Head/Face: Normocephalic, atraumatic. Eyes: Pupils equal round and reactive to light, extra-ocular motions intact. Lids and lashes normal. Conjunctiva and sclera are not injected. Cornea within normal limits. Periorbital areas with no swelling, redness, or edema. ENT: Nares patent. No nasal discharge, no septal abnormalities noted. Tympanic membranes are normal and external auditory canals are clear. Oropharynx with no redness, swelling, or masses, exudates, or evidence of obstruction, uvula midline. Mucous membranes moist. Neck: Trachea midline, no thyromegaly or masses palpated, and no cervical lymphadenopathy. Supple, full range of motion without nuchal rigidity, or vertebral point tenderness. No Meningismus. Chest/axilla: Normal chest wall appearance and motion. Nontender with no deformity. No lesions are appreciated. Cardiovascular: Regular rhythm with a normal S1 and S2. No gallops, murmurs, or rubs. Normal PMI, no JVD. No pulse deficits. Regular tachycardia Respiratory: Lungs have equal breath sounds bilaterally, clear to auscultation and percussion. No rales, rhonchi or wheezes noted. No increased work of breathing, no retractions or nasal flaring. Abdomen/GI: Soft, non-tender, with normal bowel sounds. No distension or tympany. No guarding or rebound. No evidence of tenderness throughout. Back: No spinal tenderness. No costovertebral tenderness. Skin: Warm, dry with normal turgor. no lesions, positive left lower extremity cellulitis, see exam above MS/ Extremity: Pulses equal, no cyanosis. Neurovascular intact. Full, normal range of motion. Left lower extremity redness, swelling, cellulitis, tenderness ankle and lower leg tracking up to the knee Neuro: Awake and alert, GCS 15, oriented to person, place, time, and situation. Cranial nerves II-XII grossly intact. Motor strength 5/5 in all extremities. Sensory grossly intact. Psych: Awake, alert, with orientation to person, place and time. Behavior, mood, and affect are within normal limits 00:36 ECG was reviewed by the Attending Physician. Sinus tachycardia at a rate of 106, EKG [facility] time 2346, no ST elevation or depression, no ectopy, otherwise normal EKG Vital Signs: 12/08 23:16 BP 101 / 74; Pulse 115; Resp 20; Temp 99.4(O); Pulse Ox 96% on R/A; Weight 145.15 kg; vg1 Height 5 ft. 6 in. ; Pain 04/15; 12/09 00:00 BP 120 / 76; Pulse 104; Resp 19; Pulse Ox 97% ; vc1 01:00 BP 159 / 89; Pulse 105; Resp 22; Pulse Ox 92% ; vc1 12/08 23:16 Body Mass Index 51.65 (145.15 kg, 167.64 cm) [facility] 12/08 23:16 Pain Scale: Adult vg1 MDM: 12/08 23:14 Patient medically screened. [facility] 12/09 00:36 Differential diagnosis: tendonitis, Cellulitis, abscess, DVT, edema. Data reviewed: 4 vital signs, nurses notes, lab test result(s), cardiac enzymes, CBC, electrolytes, hepatic panel, urinalysis, EKG, radiologic studies, ultrasound. ED course: Patient has significant white count elevation with neutrophilic predominance, ultrasound exam negative for DVT in left lower extremity, exam is consistent with cellulitis, patient has significant tachycardia, patient warrants admission for cellulitis, sepsis, IV hydration, IV antibiotics. . 12/08 23:12 Order name: CBC with Diff [facility] 12/08 23:12 Order name: CMP; Complete Time: 00:34 [facility] 12/08 23:12 Order name: Lipase; Complete Time: 00:34 [facility] 12/08 23:12 Order name: Urinalysis w/ reflexes [facility] 12/08 23:13 Order name: Blood Culture Adult (2) [facility] 12/08 23:25 Order name: Lactate w/ 2H reflex if indic.; Complete Time: 00:34 [facility] 12/08 23:25 Order name: Protime (+inr); Complete Time: 00:34 sp4 12/08 23:25 Order name: Ptt, Activated; Complete Time: 00:34 sp4 12/09 00:03 Order name: Glucose, Ancillary Testing; Complete Time: 00:34 EDMS 12/09 00:03 Order name: Manual Differential EDMS 12/09 00:06 Order name: Glucose, Ancillary Testing EDMS 12/08 23:14 Order name: Extremity Venous Uni Ltd US sp4 12/09 00:54 Order name: Tib Fib Left XRAY sb4 12/08 23:25 Order name: EKG; Complete Time: 23:26 sp4 12/08 23:12 Order name: IV Saline Lock; Complete Time: 23:57 sp4 12/08 23:12 Order name: Labs collected and sent; Complete Time: 23:57 sp4 12/08 23:25 Order name: Accucheck; Complete Time: 23:57 sp4 12/08 23:25 Order name: Cardiac monitoring; Complete Time: 23:52 sp4 12/08 23:25 Order name: EKG - Nurse/Tech; Complete Time: 23:52 sp4 12/08 23:25 Order name: O2 Per Protocol; Complete Time: 23:43 sp4 12/08 23:25 Order name: O2 Sat Monitoring; Complete Time: 23:43 sp4 EC:36 Rate is 106 beats/min. Rhythm is regular, Sinus tachycardia. QRS [place] is Normal. [place] sp4 interval is normal. QRS interval is normal. QT interval is normal. T waves are Normal. No ST changes noted. Clinical impression: Normal ECG. Interpreted by me. Administered Medications: 00:17 Drug: Ondansetron IVP 4 mg Route: IVP; Site: left antecubital; vc1 01:00 Follow up: Response: No adverse reaction; Marked relief of symptoms vc1 00:17 Drug: morphine IVP or IV 4 mg Route: IVP; Infused Over: 4 mins; Site: left antecubital; vc1 01:00 Follow up: Response: No adverse reaction; Marked relief of symptoms; Pain is decreased vc1 00:26 Drug: Piperacillin-Tazobactam IVPB 3.375 grams Route: IVPB; Infused Over: 60 mins; vc1 Site: left antecubital; 01:06 Follow up: IV Status: Completed infusion; IV Intake: 100ml vc1 00:26 Drug: NS 0.9% IV 1000 ml Route: IV; Rate: 1 bolus; Site: left antecubital; vc1 01:30 Follow up: IV Status: Completed infusion; IV Intake: 1000ml vc1 01:28 Drug: vancoMYCIN IVPB 1 grams Route: IVPB; Infused Over: 2 hrs; Site: left antecubital; vc1 02:05 Follow up: IV Status: Infusion continued upon admission; IV Intake: 200ml vc1 01:47 Not Given (Other Intervention Used): NS 0.9% with KCl IV 40 mEq/L 1000 ml IV at 100 vc1 ml/hr continuous Disposition Summary: 12/09/22 00:46 Hospitalization Ordered Hospitalization Status: Inpatient Admission sp4 Provider: Russ Morales4 Location: Telemetry/MedSur (Inpatient) sp4 Condition: Stable sp4 Problem: new sp4 Symptoms: have improved sp4 Bed/Room Type: Standard sp4 Room Assignment: 220(12/09/22 01:29) as6 Diagnosis - Cellulitis of left lower limb sp4 - Sepsis, left lower extremity cellulitis, tachycardia, dehydration sp4 Forms: - Medication Reconciliation Form sp4 - SBAR form sp4 Signatures: Dispatcher [employer] EDMS Maria Luisa Young RN RN vg1 Hood Augustin RN RN as6 Mirian Mcclain RN RN vc1 Dave Rios MD MD sp4 Corrections: (The following items were deleted from the chart) : 00:46 sp4 as6
[2022-12-09 00:49] LABS: Blood Morphology Comment NOT SEEN (NOT SEEN); Platelet Estimate ADEQ
--- NOTE | 2022-12-09 00:59 | P.HP ---
Certification for Inpatient Patient admitted to: Inpatient With expected LOS: >2 Midnights Patient will require the following post-hospital care: None Practitioner: I am a practitioner with admitting privileges, knowledge of patient current condition, hospital course, and medical plan of care. Services: Services provided to patient in accordance with Admission requirements found in Title 42 Section 412.3 of the Code of Federal Regulations Patient History Date of Service: 12/09/22 Reason for admission: Cellulitus LLE History of Present Illness: Ms. Juan is a 42 year old female with no significant past medical history who presented to the emergency department with complaints of left aparicio erythema, swelling, warmth, and generalized body aches for 2 days. She states that she has had cellulitus of this region several times before. She had a surgical procedure on her left tibia with hardware placed in 2008. She was tachycardic upon arrival with tmax of 99.4F. Her labs are significant for WBC 14.6, sodium 124. Lactate within normal limits. Ultrasound negative for DVT. Xray showed "Diffuse nonfocal soft tissue prominence without acute osseous finding of the left lower leg. Chronic posttraumatic and postsurgical findings above." In the emergency department, she was started on vancomycin and zosyn. Patient still in pain and diaphoretic. ED provider wishes to admit patient for further management. Allergies No Known Allergies Allergy (Unverified 12/09/22 02:22) Home medications list reviewed: Yes - Past Medical/Surgical History Diabetic: No -: Bipolar Disorder -: Recurrent cellulitus LLE -: -: Left tibia repair Psychosocial/ Personal History: Patient lives at home alone. - Family History Family History: Reviewed- Non-Contributory - Social History Smoking Status: Light Tobacco smoker (1-9 cigarettes/day) Alcohol use: Yes CD- Drugs: No Caffeine use: Yes Place of Residence: Home Review of Systems General: Fever, Malaise Integumentary: As per HPI Physical Examination - Vital Signs Temperature: 99.4 F Blood Pressure: 101/74 Pulse: 115 Respirations: 20 Pulse Ox (%): 96 - Physical Exam General: Alert, In no apparent distress, Obese HEENT: Atraumatic, EOMI, Sclerae nonicteric Neck: Supple, 2+ carotid pulse no bruit Respiratory: Clear to auscultation bilaterally, Normal air movement Cardiovascular: Regular rate/rhythm, Normal S1 S2 Gastrointestinal: Normal bowel sounds, No tenderness Musculoskeletal: No tenderness Integumentary: Tenderness/swelling, Erythema, Warmth Neurological: Normal speech, Normal affect - Studies Laboratory Data (last 24 hrs) 12/08/22 23:35: PT 16.7 H, INR 1.52, APTT 29.7 12/08/22 23:35: Sodium 126 L, Potassium 3.4 L, BUN 8, Creatinine 0.66, Glucose 111 H, Total Bilirubin 0.7, AST 33, ALT 48, Alkaline Phosphatase 164 H, Lipase 16 12/08/22 23:35: WBC 14.60 H, Hgb 12.4, Hct 38.0, Plt Count 287 Assessment and Plan - Problems (Diagnosis) (1) Cellulitis of left lower extremity Current Visit: Yes Status: Acute (2) Sepsis Current Visit: Yes Status: Acute Qualifiers: Sepsis type: sepsis due to unspecified organism Sepsis acute organ dysfunction status: without acute organ dysfunction Qualified Code(s): A41.9 - Sepsis, unspecified organism (3) Hyponatremia Current Visit: Yes Status: Acute - Plan Patient is admitted for further management of sepsis secondary to left lower extremity cellulitus. Continue vancomycin and zosyn. Blood cultures obtained. Ultrasound & xray nega tive. Hyponatremia etiology unclear. She does report some vomiting. Start NS at 75 cc/hr. Check urine sodium, serum & urine osmolality. [place] PRN pain. Tmax thus far 99.4F. Continue to monitor. Lactate within normal limits. BP stable. Monitor and replete electrolytes per protocol. Reconcile and continue home medications. Lovenox for VTE prophylaxis. Full code. Discharge Plan: Home Plan to discharge in: Greater than 2 days - Advance Directives Does patient have a Living Will: No Does patient have a Durable POA for Healthcare: No - Code Status/Comfort Care Code Status Assessed: Yes Code Status: Full Code Physician Review: Patient Assessed, Agree with Above Assessment and Plan Critical Care: No Time Spent Managing Pts Care (In Minutes): 50
[2022-12-09] MEDS ORDERED: ACETAMINOPHEN 500 MG TAB PO PRN (02:26)
[2022-12-09] MEDS ORDERED: NA CHLORIDE 0.9% 1,000 ML IV SCH (02:26)
[2022-12-09 02:39] VITALS: BMI 51.6
[2022-12-09] MEDS ORDERED: VANCOMYCIN 1 GM in NA CHLORIDE 0.9% 250 ML IVPB ONE (03:00)
[2022-12-09] MEDS: HYDROCODONE/APAP 7.5/325 MG TAB PO PRN ×2 (05:37→13:41)
[2022-12-09] MEDS ORDERED: ONDANSETRON 4 MG/2 ML VIAL IV PRN (06:00)
[2022-12-09] MEDS: ENOXAPARIN 40 MG/0.4 ML SQ SCH (08:36)
[2022-12-09] MEDS: PIPER TAZO 3.375 GM in NA CHLORIDE 0.9% 100 ML IV SCH ×3 (08:36→16:45)
[2022-12-09] MEDS ORDERED: POTASSIUM 25 MEQ EFFERV TAB PO ONE (09:00)
[2022-12-09] MEDS ORDERED: VANCOMYCIN 1 GM in NA CHLORIDE 0.9% 250 ML IVPB SCH (12:00)
[2022-12-09] MEDS ORDERED: VANCOMYCIN 2 GM in NA CHLORIDE 0.9% 500 ML IVPB SCH (12:00)
[2022-12-09] MEDS: VANCOMYCIN 1.25 GM in NA CHLORIDE 0.9% 250 ML IVPB SCH ×2 (12:41→23:46)
[2022-12-09] MEDS ORDERED: METHYLPREDNISOLONE 40 MG INJ IV ONE (15:05)
[2022-12-09] MEDS ORDERED: HYDROMORPHONE HCL 0.5 MG/0.5 ML INJ IV PRN (15:31)
[2022-12-10] MEDS: PIPER TAZO 3.375 GM in NA CHLORIDE 0.9% 100 ML IV SCH ×3 (00:53→16:17)
[2022-12-10 02:58] LABS: Absolute Lymphocytes (CBC) 0.5 K/uL (0.7-4.9); Hematocrit 33.2 % (36.0-45.0); Lymphocytes % 4.5 % (15.3-44.8); MCV 83.5 fL (80-100); MPV 7.5 fL (7.6-11.3); RBC Red Blood Cell Count 3.97 M/uL (3.86-4.86)
[2022-12-10 03:07] LABS: Albumin 2.3 g/dL (3.4-5.0); Bilirubin Total 0.2 mg/dL (0.2-1.0); Magnesium 2.3 mg/dL (1.6-2.4); Potassium 4.4 mEq/L (3.5-5.1); Protein, Total 7.4 g/dL (6.4-8.2)
[2022-12-10 03:11] LABS: Phosphorus 2.3 mg/dL (2.5-4.9); Thyroid Stimulating Hormone 0.636 uIU/mL (0.358-3.740)
[2022-12-10] MEDS: POTASS/SODIUM PHOSPHATE 1 PKT POWD.PACK PO SCH ×3 (09:11→10:52)
[2022-12-10] MEDS: ENOXAPARIN 40 MG/0.4 ML SQ SCH (09:11)
--- NOTE | 2022-12-10 09:40 | RAD REPORT ---
EXAM DESCRIPTION: CT - Lower Extremity W/ Cont - 12/10/2022 7:34 am CLINICAL HISTORY: Leg pain and swelling. Cellulitis COMPARISON: None. TECHNIQUE: Computed axial tomography obtained from below the knee to the foot. Coronal and sagittal reconstruction. 50 cc Isovue-[address] scans are performed using dose optimization technique as appropriate and may include automated exposure control or mA/KV adjustment according to patient size. FINDINGS: Intramedullary lena and screws have placed into the left tibia. It effaces a fracture of di stal tibial diaphysis. There is considerable sclerosis of the mid and distal tibia. 2.5 centimeter [place] structure extends off of anterior aspect at the old fracture site. It presumably represents hetero topic bone formation. Within the anterior subcutaneous tissues at this level is increased density aviva suring 2.7 centimeters. It probably represents chronic inflammation. There is extensive edema within the subcutaneous tissues. A discrete fluid-filled abscess with an enhancing wall is not visualized. An old fracture involves the mid diaphysis fibula. IMPRESSION: Extensive cellulitis A definite abscess is not visualized Old fibular/tibial fractures Sclerosis mid and distal tibia presumably reactive bone secondary to the previous trauma. Chronic ost eomyelitis can also have this appearance but is probably less likely. If clinically indicated further evaluation with an Indium labeled white blood cell nuclear Medicine scan could be obtained
[2022-12-10 10:38] VITALS: O2SAT 97
[2022-12-10] MEDS: VANCOMYCIN 1.25 GM in NA CHLORIDE 0.9% 250 ML IVPB SCH ×2 (12:28→23:00)
--- NOTE | 2022-12-10 21:24 | RAD REPORT ---
EXAM DESCRIPTION: RAD - Tib Fib Left - 12/09/2022 1:34 am CLINICAL HISTORY: Female, 42 years old, SWELLING TECHNIQUE: 2 views COMPARISON: None. FINDINGS: Left tibial intramedullary nail without evidence of hardware complication. Healed fracture s of the mid fibular and distal tibial diaphyses. The knee and ankle joints are congruent with at [facility] mild degenerative change. Diffuse nonfocal soft tissue prominence. IMPRESSION: Diffuse nonfocal soft tissue prominence without acute osseous finding of the left lower leg. Chronic posttraumatic and postsurgical findings above. Electronically signed by: Jaxson Kennedy MD 12/09/2022 2:35 AM CDT Due to temporary technical issues with the PACS/Fluency reporting system, reports are being signed by the in house radiologists without review as a courtesy to insure prompt reporting. The interpreting radiologist is fully responsible for the content of the report.
--- NOTE | 2022-12-10 21:26 | RAD REPORT ---
EXAM DESCRIPTION: US - Extremity Venous Uni Ltd - 12/09/2022 12:49 am CLINICAL HISTORY: Swelling, redness TECHNIQUE: Real-time duplex ultrasound scan of the left lower extremity veins integrating B-mode two -dimensional vascular structure, Doppler spectral analysis, color flow Doppler imaging and compressio n. COMPARISON: Correlation is made with report only from study dated 02/15/2019. FINDINGS: Deep veins: Unremarkable. No DVT in the visualized common femoral, femoral, proximal d eep femoral, popliteal or visualized calf veins. The veins demonstrate normal color flow, are sophia lly compressible, with normal phasic flow and/or augmentation response. Superficial veins: Unremarkable. No thrombus in the visualized great saphenous vein. Soft tissues: Subcutaneous edema with a collection measuring approximately 2.3 x 1.2 cm in the left calf at area of concern. No popliteal cyst. Lymph nodes: Left inguinal lymph nodes with normal fatty agusto measuring up to 2 cm in short axis. IMPRESSION: 1. No evidence for deep venous thrombosis within the left lower extremity. 2. Localized subcutaneous soft tissue edema and focal collection measuring approximately 2.3 x 1.2 cm in the left calf at area of concern. A similar structure was mentioned on a previous left lower extremity venous ultrasound report from February 2019. Images were not available at time of dictation. This may reflect a chronic seroma. An infected collection is not excluded. If prior images beco me available, direct comparison would be of considerable value. Electronically signed by: Steph Quach MD 12/09/2022 2:20 AM CDT Due to temporary technical issues with the PACS/Fluency reporting system, reports are being signed by the in house radiologists without review as a courtesy to insure prompt reporting. The interpreting radiologist is fully responsible for the content of the report.
[2022-12-11] MEDS ORDERED: PIPERACIL/TAZO 3.375 GM VIAL IV ONE (00:53)
[2022-12-11] MEDS ORDERED: NA CHLORIDE 0.9% 100 ML ONE (00:54)
[2022-12-11] MEDS: PIPER TAZO 3.375 GM in NA CHLORIDE 0.9% 100 ML IV SCH ×2 (01:27→10:41)
[2022-12-11 04:39] LABS: Potassium 3.8 mEq/L (3.5-5.1)
[2022-12-11] MEDS: VANCOMYCIN 1.25 GM in NA CHLORIDE 0.9% 250 ML IVPB SCH ×2 (05:46→12:09)
[2022-12-11] MEDS ORDERED: POTASSIUM 25 MEQ EFFERV TAB PO ONE ×2 (08:00→13:00)
[2022-12-11] MEDS: ENOXAPARIN 40 MG/0.4 ML SQ SCH (09:00)
[2022-12-11] MEDS ORDERED: ALPRAZOLAM 0.25 MG TABLET PO ONE (10:51)
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
--- NOTE | 2022-12-11 13:09 | P.DS ---
Admission Date: 12/09/22 Discharge Date: 12/11/22 Disposition: ROUTINE DISCHARGE Discharge Condition: GOOD Reason for Admission: Cellulitus LLE Consultations: 1. General Surgery 2. Infectious Diseases Hospital Course: DIAGNOSES: # Sepsis secondary to Left Lower Extremity Cellulitis # Chronic Lower Extremity Seroma # Bipolar Disorder # Tobacco Use Disorder # Morbid Obesity - BMI 51.6 kg/m2 HOSPITAL COURSE: Ms. Kandis Juan is a 42 year old female with a past medical history significant for bipolar disorder who was admitted to the [facility] on 12/09/2022 for left lower extremity cellulitis. She was admitted to the Medicine service. A left lower extremity Doppler ultrasound revealed, "1. No evidence for deep venous thrombosis within the left lower extremity. 2. Localized subcutaneous soft tissue edema and focal collection measuring approximately 2.3 x 1.2 cm in the left calf at area of concern. A similar structure was mentioned on a previous left lower extremity venous ultrasound report from February 2019. Images were not available at time of dictation. This may reflect a chronic seroma. An infected collection is not excluded. If prior images become available, direct comparison would be of considerable value." Left lower extremity x-ray reveled, "diffuse nonfocal soft tissue prominence without acute osseous finding of the left lower leg. Chronic posttraumatic and postsurgical findings above." CT left lower extremity revealed, "extensive cellulitis. A definite abscess is not visualized. Old fibular/tibial fractures. Sclerosis mid and distal tibia presumably reactive bone secondary to the previous trauma. Chronic osteomyelitis can also have this appearance but is probably less likely. If clinically indicated further evaluation with an Indium labeled white blood cell nuclear Medicine scan could be obtained." General Surgery was consulted and she was evaluated by Dr. Hutchinson. He recommended no surgical intervention. He has cleared her for discharge from his standpoint. I also reviewed her case with Infectious Diseases. It was thought that the radiology findings are unlikely to represent osteomyelitis. Since she has hardware in her lower extremity, MRI was not possible. She was eager for discharge this morning and wanted to be released as soon as possible. Per Infectious Diseases, it was recommended that she have a 2- week prescription of cefdinir and doxycycline as well as a a triple phase bone scan in 2 weeks to reevaluate. These instructions were given to her, and she verbalized understanding On 12/11/2022, she was seen on rounds and deemed medically stable for discharge. She was discharged with instructions to schedule follow-up appointments with her PCP and with General Surgery (Dr. Hutchinson). She was provided prescriptions for cefdinir and doxycycline. She was given the opportunity to ask questions and reported no further questions. Furthermore, all questions were answered to the best of my ability. A copy of this discharge summary will be sent to the above providers to facilitate continuity of care. Today, I personally spent 25 minutes on her case, of which greater than 50% of the time was spent in patient education, counseling, and coordination of care as described above. Vital Signs/Physical Exam: Temp Pulse Resp BP Pulse Ox 96.0 F L 78 20 136/89 97 12/11/22 08:00 12/11/22 08:00 12/11/22 08:00 12/11/22 08:00 12/11/22 08:00 General: Alert, In no apparent distress, Oriented x3 HEENT: Atraumatic, Mucous membr. moist/pink, Sclerae nonicteric Neck: JVD not distended Respiratory: Clear to auscultation bilaterally, Normal air movement Cardiovascular: No edema, Regular rate/rhythm, Normal S1 S2, No gallops, No rubs, No murmurs Gastrointestinal: Normal bowel sounds, Soft and benign, Non-distended, No tenderness, No rebound, No guarding Musculoskeletal: No clubbing, Other (minimal erythema in anterior left lower extremity.) Integumentary: No rashes Neurological: Normal speech, Normal affect Laboratory Data at Discharge: WBC 10.90 thou/uL (4.3-10.9) 12/10/22 02:11 Hgb 11.0 g/dL (12.0-15.0) L D 12/10/22 02:11 Hct 33.2 % (36.0-45.0) L 12/10/22 02:11 Plt Count 305 thou/uL (152-406) 12/10/22 02:11 PT 16.7 SECONDS (9.5-12.5) H 12/08/22 23:35 INR 1.52 12/08/22 23:35 APTT 29.7 SECONDS (24.3-36.9) 12/08/22 23:35 Sodium 139 mEq/L (136-145) D 12/11/22 04:02 Potassium 3.8 mEq/L (3.5-5.1) D 12/11/22 04:02 BUN 15 mg/dL (7-18) 12/11/22 04:02 Creatinine 0.53 mg/dL (0.55-1.02) L 12/11/22 04:02 Glucose 107 mg/dL (74-106) H 12/11/22 04:02 Phosphorus 2.3 mg/dL (2.5-4.9) L 12/10/22 02:11 Magnesium 2.3 mg/dL (1.6-2.4) 12/10/22 02:11 Magnesium Cancelled 12/10/22 02:11 Total Bilirubin 0.2 mg/dL (0.2-1.0) 12/10/22 02:11 AST 11 U/L (15-37) L 12/10/22 02:11 ALT 32 U/L (13-56) 12/10/22 02:11 Alkaline Phosphatase 146 U/L (45-117) H 12/10/22 02:11 Triglycerides 214 mg/dL (<150) H 12/10/22 02:11 Cholesterol 184 mg/dL (<200) 12/10/22 02:11 HDL Cholesterol 18 mg/dL (40-60) L 12/10/22 02:11 Cholesterol/HDL Ratio 10.22 12/10/22 02:11 Lipase 16 U/L (13-75) 12/08/22 23:35 Home Medications: Cefdinir [Cefdinir*] 300 mg PO BID 14 Days #28 cap 12/11/22 Doxycycline Hyclate 100 mg PO BID 14 Days #28 tab 12/11/22 New Medications: Cefdinir [Cefdinir*] 300 mg PO BID 14 Days #28 cap Doxycycline Hyclate 100 mg PO BID 14 Days #28 tab Physician Discharge Instructions: 1. Please call and schedule a follow-up appointment with your PCP in 3-5 days - As we discussed, please have your PCP order a bone scan of your left leg in 2 weeks to make sure you do not have a bone infection 2. Please call and schedule a follow-up appointment with General Surgery (Dr. Hutchinson) in 5-7 days Diet: AHA Activity: Ad ian Followup: NONE,NONE [Primary Care Provider] - Antwon Hutchinson MD [ACTIVE - CAN ADMIT] - Time spent managing pt's care (in minutes): 25
[2022-12-11 15:32] VITALS: BP 145/87; TEMP 97.5
--- NOTE | 2022-12-12 08:02 | EKG ---
Test Date: 2022-12-08 Test Time: 23:46:17 Dairy Nutrition Specialist: RHODA MEASUREMENT RESULTS: Intervals: Rate: 106 AK: 120 QRSD: 82 QT: 334 QTc: 443 [place]: P: 68 AK: 120 QRS: 28 T: 43 INTERPRETIVE STATEMENTS: Sinus tachycardia Otherwise normal ECG Compared to ECG 12/10/2021 02:10:05 No significant changes Electronically Signed On 12-12-22 07:54:15 CDT by Buzz Villalobos
== END 2022-12-11 15:35 | disposition home or self-care (01) | DRG 872 ==
LOC: ER 22:29 → ERHOLD 12-09 00:48 → 2ND 12-09 01:31
PROVIDERS: ADMIT Hospitalist; ATTEND Internal Medicine
DX: A41.9 Sepsis, unspecified organism (principal); L03.116 Cellulitis of left lower limb; Z68.43 Body mass index [BMI] 50.0-59.9, adult; E87.1 Hypo-osmolality and hyponatremia; E66.9 Obesity, unspecified; F31.9 Bipolar disorder, unspecified; F17.210 Nicotine dependence, cigarettes, uncomplicated; Z60.2 Problems related to living alone; Z28.310 Unvaccinated for COVID-19; Z79.899 Other long term (current) drug therapy
CPT/HCPCS: 36415; 73701; 80048; 80053; 80061; 80202; 82947; 83036; 83605; 83690; 83735; 83880; 83930; 84100; 84145; 84443; 85025; 85610; 85730; 86140; 87040; 93005; 93971; 96365; 96367; 96375; 99285; J1170; J1650; J2405; J2543; J2920; J7030; J7040; J7050; Q9967

== ENCOUNTER 2023-01-04 13:04 | Observation (INO) | payer OTHER ==
--- NOTE | 2023-01-04 15:11 | RAD REPORT ---
EXAM DESCRIPTION: US - Extrem Venous W Compress [place] - 01/04/2023 2:27 pm CLINICAL HISTORY: Pain, swelling COMPARISON: None. TECHNIQUE: Real-time sonographic evaluation of the bilateral lower extremity deep venous systems was performed. FINDINGS: Normal compressibility, flow augmentation, phasic flow and spontaneous flow is identified in both the left and right lower extremity deep venous systems. Pronounced edema along the left lower leg, contributing to some decreased compressibility of the left posterior tibial veins. No intralumi nal filling defects seen. IMPRESSION: No evidence of DVT in either lower extremity. Pronounced edema along the left lower leg.
[2023-01-04 15:44] LABS: Absolute Lymphocytes (CBC) 0.5 K/uL (0.7-4.9); Hematocrit 33.2 % (36.0-45.0); Lymphocytes % 4.6 % (15.3-44.8); MCV 83.6 fL (80-100); MPV 7.6 fL (7.6-11.3); RBC Red Blood Cell Count 3.97 M/uL (3.86-4.86)
[2023-01-04 15:47] LABS: Protime INR 1.49
[2023-01-04 16:05] LABS: Albumin 2.7 g/dL (3.4-5.0); Bilirubin Total 0.5 mg/dL (0.2-1.0); Potassium 3.1 mEq/L (3.5-5.1); Protein, Total 7.4 g/dL (6.4-8.2)
--- NOTE | 2023-01-04 16:46 | P.HP ---
Certification for Inpatient Patient admitted to: Observation With expected LOS: <2 Midnights Patient will require the following post-hospital care: None Practitioner: I am a practitioner with admitting privileges, knowledge of patient current condition, hospital course, and medical plan of care. Services: Services provided to patient in accordance with Admission requirements found in Title 42 Section 412.3 of the Code of Federal Regulations Patient History Date of Service: 01/04/23 Reason for admission: Cellulitis History of Present Illness: Service was provided via video visit/Tele-Medicine. For that reason, no physical examination was performed. Verbal consent was obtained prior to visit. Ms. Kandis Juan is a 42 year old female with a past medical history of bipolar disorder who presents to the [facility] Emergency Department for left lower extremity cellulitis. She reports that, over the last several days, she has had acute worsening of her chronic left lower extremity cellulitis. She reports worsening erythema, pain, and swelling. She denies any obvious inciting or alleviating factors. She was admitted early December 2022, with similar symptoms and discharged on cefdinir and doxycyine. She reports that her cellulitis did improve following this treatment course. On review of systems, she denies any fevers, chills, headaches, dizziness, syncope, chest pain, palpitations, shortness of breath, wheezing, cough, abdominal pain, nausea/vomiting, or any other symptoms. She presented today for further evaluation. Upon presentation, her vital signs were notable for a heart rate of 98 bpm and a respiratory rate of 21 breaths/min. Her laboratory studies were notable for a potassium of 3.1. Blood cultures x 2 were obtained. Her EKG was without STEMI criteria. Her bilateral lower extremity Doppler ultrasound revealed, "no evidence of DVT in either lower extremity. Pronounced edema along the left lower leg." She was admitted to the General Internal Medicine Service for further evaluation. Allergies No Known Allergies Allergy (Unverified 12/09/22 02:22) Home medications list reviewed: Yes (No home medications) - Past Medical/Surgical History Diabetic: No -: Bipolar Disorder -: Recurrent cellulitus LLE -: -: Left tibia repair Psychosocial/ Personal History: Patient lives at home alone. - Family History Family History: Reviewed- Non-Contributory - Social History Smoking Status: Light Tobacco smoker (1-9 cigarettes/day) Alcohol use: Yes CD- Drugs: No Caffeine use: Yes Review of Systems General: Unremarkable Eyes: Unremarkable ENT: Unremarkable Respiratory: Unremarkable Cardiovascular: Unremarkable Gastrointestinal: Unremarkable Genitourinary: Unremarkable Musculoskeletal: Leg Pain (left leg) Integumentary: Rash (left lower extremity cellulitis) Neurological: Unremarkable Lymphatics: Unremarkable Physical Examination - Vital Signs Temperature: 98.9 F Blood Pressure: 135/77 Pulse: 98 Respirations: 22 Pulse Ox (%): 98 - Physical Exam General: Alert, In no apparent distress, Oriented x3 HEENT: Atraumatic, Sclerae nonicteric Integumentary: Other (left lower extremity erythema, tenderness, and swelling with small opening on anterior aparicio) Neurological: Normal speech, Normal affect - Studies Laboratory Data (last 24 hrs) 01/04/23 15:10: PT 16.4 H, INR 1.49, APTT 26.6 01/04/23 15:10: Sodium 133 L, Potassium 3.1 L, BUN 8, Creatinine 0.69, Glucose 112 H, Total Bilirubin 0.5, AST 27, ALT 34, Alkaline Phosphatase 136 H 01/04/23 15:10: WBC 10.10, Hgb 10.8 L, Hct 33.2 L, Plt Count 258 Assessment and Plan - Plan # Sepsis secondary to Left Lower Extremity Cellulitis # Chronic Lower Extremity Seroma # Morbid Obesity - BMI 51.6 kg/m2 She met 2/4 SIRS criteria with HR > 90 bpm and respiratory rate > 20 breaths/min. - Bilateral lower extremity Doppler = "no evidence of DVT in either lower extremity. Pronounced edema along the left lower leg. " - CT left lower extremity pending - Started on vancomycin + cefepime - Blood cultures x 2 obtained - Lactate = 1.7 - In regards to fluids, 30 mL/kg not given due to SBP > 90 mmHg and lactate < 4 - General Surgery consulted - recommendations appreciated - Wound care consulted # Bipolar Disorder - Not on medication at home # Tobacco Use Disorder - Tobacco cessation counseling provided Jerry Beebe M.D. - Advance Directives Does patient have a Living Will: No Does patient have a Durable POA for Healthcare: No
--- NOTE | 2023-01-04 16:48 | EDPHYS ---
Physician Documentation [facility] [place] Name: Kandis Juan Age: 42 yrs Sex: Female : 1980 Arrival Date: 01/04/2023 Time: 13:04 Bed 17 Private MD: ED Physician Rubin Weir HPI: 01/04 16:36 This 42 yrs old Female presents to ER via Ambulatory with complaints of Leg snw Swelling. 16:36 The patient presents with swelling, tenderness. The complaints affect the left calf, snw left Achilles, left aparicio and anterior aspect of left ankle. Onset: The symptoms/episode began/occurred acutely, and became worse 3 day(s) ago. Associated signs and symptoms: The patient has no apparent associated signs or symptoms. Severity of symptoms: At their worst the symptoms were moderate, severe. The patient has experienced similar episodes in the past, with the last episode occurring last month. DIRECTOR SKILLS: 19:33 LMP N/A - Irregular menses kl Historical: - Allergies: 14:37 No Known Allergies; nj1 - PMHx: 14:37 Bipolar disorder; Cellulitis; Left leg; nj1 - PSHx: 14:37 section; Leg surgery; section; nj1 15:30 Ligation of fallopian tube; nj1 - Immunization history:: Client reports having NOT received the Covid vaccine. - Social history:: Smoking status: Patient reports the use of cigarette tobacco products, smokes one-half pack cigarettes per day. ROS: 16:38 Constitutional: Negative for fever, chills, and weight loss, Eyes: Negative for injury, snw pain, redness, and discharge, ENT: Negative for injury, pain, and discharge, Neck: Negative for injury, pain, and swelling, Cardiovascular: Negative for chest pain, palpitations, and edema, Respiratory: Negative for shortness of breath, cough, wheezing, and pleuritic chest pain, Abdomen/GI: Negative for abdominal pain, nausea, vomiting, diarrhea, and constipation, Back: Negative for injury and pain, : Negative for injury, bleeding, discharge, and swelling, MS/Extremity: Negative for injury and deformity, Neuro: Negative for headache, weakness, numbness, tingling, and seizure, Psych: Negative for depression, anxiety, suicide ideation, homicidal ideation, and hallucinations. 16:38 Skin: Positive for cellulitis, of the left leg. Exam: 16:35 Constitutional: This is a well developed, well nourished patient who is awake, alert, snw and in no acute distress. Head/Face: Normocephalic, atraumatic. Eyes: Pupils equal round and reactive to light, extra-ocular motions intact. Lids and lashes normal. Conjunctiva and sclera are non-icteric and not injected. Cornea within normal limits. Periorbital areas with no swelling, redness, or edema. ENT: Nares patent. No nasal discharge, no septal abnormalities noted. Tympanic membranes are normal and external auditory canals are clear. Oropharynx with no redness, swelling, or masses, exudates, or evidence of obstruction, uvula midline. Mucous membranes moist. Neck: Trachea midline, no thyromegaly or masses palpated, and no cervical lymphadenopathy. Supple, full range of motion without nuchal rigidity, or vertebral point tenderness. No Meningismus. Chest/axilla: Normal chest wall appearance and motion. Nontender with no deformity. No lesions are appreciated. Cardiovascular: Regular rate and rhythm with a normal S1 and S2. No gallops, murmurs, or rubs. Normal PMI, no JVD. No pulse deficits. Respiratory: Lungs have equal breath sounds bilaterally, clear to auscultation and percussion. No rales, rhonchi or wheezes noted. No increased work of breathing, no retractions or nasal flaring. Abdomen/GI: Soft, non-tender, with normal bowel sounds. No distension or tympany. No guarding or rebound. No evidence of tenderness throughout. Back: No spinal tenderness. No costovertebral tenderness. Full range of motion. Neuro: Awake and alert, GCS 15, oriented to person, place, time, and situation. Cranial nerves II-XII grossly intact. Motor strength 5/5 in all extremities. Sensory grossly intact. Cerebellar exam normal. Normal gait. Psych: Awake, alert, with orientation to person, place and time. Behavior, mood, and affect are within normal limits. 16:35 Skin: Appearance: normal except for affected area, cellulitis, that is moderate, that is severe, on the lateral aspect of left calf, left calf, left Achilles, medial aspect of left calf, left aparicio and anterior aspect of left ankle. Vital Signs: 14:37 BP 112 / 63; Pulse 92; Resp 18; Temp 98.9; Pulse Ox 97% ; Weight 145.15 kg; Height 5 nj1 ft. 6 in. ; Pain 8/10; 15:30 BP 130 / 68; Pulse 91; Resp 21; Pulse Ox 100% on R/A; nj1 16:40 BP 135 / 77; Pulse 98; Resp 22; Pulse Ox 98% on R/A; nj1 17:45 BP 115 / 56; Pulse 95; Resp 18; Pulse Ox 98% on R/A; Pain 3/10; nj1 18:31 BP 136 / 76; Pulse 94; Resp 19; Pulse Ox 100% on R/A; Pain 2/10; nj1 19:32 BP 132 / 72; Pulse 89; Resp 16; Temp 98; Pulse Ox 99% on R/A; kl 14:37 Body Mass Index 51.65 (145.15 kg, 167.64 cm) nj 14:37 Pain Scale: Adult nj1 17:45 Pain Scale: Adult nj1 18:31 Pain Scale: Adult nj1 MDM: 14:08 Patient medically screened. snw 16:38 Differential diagnosis: closed fracture, abrasion, tendonitis, Cellulitis. Data snw reviewed: vital signs, nurses notes, lab test result(s), radiologic studies. Management of patient was discussed with the following: Hospitalist: Dr. Beebe. I considered the following discharge prescriptions or medication management in the emergency department Medications were administered in the Emergency Department. See MAR. Counseling: I had a detailed discussion with the patient and/or guardian regarding: the historical points, exam findings, and any diagnostic results supporting the discharge/admit diagnosis, lab results, radiology results, the need for further work-up and treatment in the hospital. 01/04 13:59 Order name: Blood Culture Adult (2) [facility] 01/04 13:59 Order name: CBC with Diff; Complete Time: 16:02 [facility] 01/04 13:59 Order name: CMP; Complete Time: 16:14 [facility] 01/04 13:59 Order name: Lactate w/ 2H reflex if indic.; Complete Time: 16:37 [facility] 01/04 13:59 Order name: Protime (+inr); Complete Time: 15:50 [facility] 01/04 13:59 Order name: Ptt, Activated; Complete Time: 15:50 snw 01/04 13:59 Order name: Urinalysis w/ reflexes snw 01/04 17:47 Order name: Basic Metabolic Panel EDMS 01/04 17:47 Order name: Basic Metabolic Panel EDMS 01/04 17:47 Order name: CBC with Automated Diff EDMS 01/04 17:47 Order name: CBC with Automated Diff EDMS 01/04 17:47 Order name: Magnesium EDMS 01/04 17:47 Order name: Magnesium EDMS 01/04 17:47 Order name: Phosphorus EDMS 01/04 17:47 Order name: Phosphorus EDMS 01/04 17:47 Order name: Protime (+INR) EDMS 01/04 17:47 Order name: Protime (+INR) EDMS 01/04 13:59 Order name: US Extremity Venous W Compression [place]; Complete Time: 15:19 snw 01/04 16:37 Order name: Tib Fib Left Wo Con; Complete Time: 18:30 EDMS 01/04 13:59 Order name: EKG; Complete Time: 13:59 snw 01/04 17:47 Order name: CONS Physician Consult EDMS 01/04 17:47 Order name: CONS [facility] Cons EDMS 01/04 17:47 Order name: Heart Healthy EDMS 01/04 13:59 Order name: Cardiac monitoring; Complete Time: 15:34 snw 01/04 13:59 Order name: EKG - Nurse/Tech; Complete Time: 16:13 snw 01/04 13:59 Order name: IV Saline Lock - Large Bore; Complete Time: 15:34 snw 01/04 13:59 Order name: Labs collected and sent; Complete Time: 15:34 snw 01/04 13:59 Order name: O2 Per Protocol; Complete Time: 15:34 snw 01/04 13:59 Order name: O2 Sat Monitoring; Complete Time: 15:34 snw 01/04 13:59 Order name: Vital Signs; Complete Time: 14:54 snw EC:00 Rate is 94 beats/min. Rhythm is regular. QRS [place] is Normal. SD interval is normal. QRS snw interval is normal. Clinical impression: NSR w/ Non-specific ST/T Changes. Administered Medications: 17:05 Drug: Diazepam IVP 5 mg Route: IVP; Site: right antecubital; nj1 17:45 Follow up: Response: No adverse reaction; Pain is decreased nj1 17:06 Drug: Ampicillin-Sulbactam Sodium IVPB 3 grams Route: IVPB; Infused Over: 30 mins; nj1 Site: right antecubital; 17:45 Follow up: Response: No adverse reaction nj1 18:06 Follow up: IV Status: Completed infusion; IV Intake: 100ml nj1 Disposition Summary: 01/04/23 16:48 Hospitalization Ordered Hospitalization Status: Inpatient Admission snw Provider: Jerry Beebe snpadmini Location: Telemetry/[facility]Sur (Inpatient) snw Condition: Stable snw Problem: an acute exacerbation snw Symptoms: have worsened snw Bed/Room Type: Standard snw Room Assignment: 405(01/04/23 17:53) dw Diagnosis - Cellulitis of left lower limb snw Forms: - Medication Reconciliation Form snw - SBAR form snw Addendum: 01/09/2023 06:59 Co-signature as Attending Physician, Rubin Weir MD I reviewed the patient's care r n provided by the Advanced Practice Provider and agree with the diagnosis and treatment plan. Signatures: Dispatcher [employer] EDNY Kathy Velázquez RN RN dw Sania Cochran, SENIOR ACCOUNTING SPECIALIST-C SENIOR ACCOUNTING SPECIALIST-Csnw Rubin Weir MD MD rn Jaco, Norma, RN RN nj1 Corrections: (The following items were deleted from the chart) 01/04 16:37 16:33 CT LEFT TIBFIB WO COTNRAST ordered. [facility] 17:53 16:48 snw dw
--- NOTE | 2023-01-04 16:48 | ER ---
Nurse's Notes [facility] Name: Kandis Juan Age: 42 yrs Sex: Female : 1980 Arrival Date: 01/04/2023 Time: 13:04 Bed 17 Private MD: Diagnosis: Cellulitis of left lower limb Presentation: 01/04 14:37 Chief complaint: Patient states: Left lower leg cellulitis. Pt states she was admitted nj1 to the hospital for it, got discharge, felt better but about 5 days ago started getting bad. Coronavirus screen: Vaccine status: Patient reports being unvaccinated. Ebola Screen: Patient denies travel to an Ebola-affected area in the 21 days before illness onset. 14:37 Method Of Arrival: Ambulatory [facility] 14:37 Initial Sepsis Screen: Does the patient meet any 2 criteria? HR > 90 bpm. No. Patient's [facility] initial sepsis screen is negative. Does the patient have a suspected source of infection? No. Patient's initial sepsis screen is negative. Risk Assessment: Do you want to hurt yourself or someone else? Patient reports no desire to harm self or others. Onset of symptoms was December 30, 2022. 14:37 Acuity: RONNY 3 [facility] TECHNICAL SUPPORT PROFESSIONAL: 19:33 LMP N/A - Irregular menses kl Historical: - Allergies: 14:37 No Known Allergies; nj1 - PMHx: 14:37 Bipolar disorder; Cellulitis; Left leg; [facility] - PSHx: 14:37 section; Leg surgery; section; [facility] 15:30 Ligation of fallopian tube; [facility] - Immunization history:: Client reports having NOT received the Covid vaccine. - Social history:: Smoking status: Patient reports the use of cigarette tobacco products, smokes one-half pack cigarettes per day. Screenin:00 [facility] ED Fall Risk Assessment (Adult) History of falling in the last 3 months, [facility] including since admission No falls in past 3 months (0 pts) Confusion or Disorientation No (0 pts) Intoxicated or Sedated No (0 pts) Impaired Gait No (0 pts) Mobility Assist Device Used No (0 pt) Altered Elimination No (0 pt) Score/Fall Risk Level 0 - 2 = Low Risk Oriented to surroundings, Maintained a safe environment, Hourly rounding (assess needs \T\ fall precautionary measures) done. 15:00 Abuse screen: Denies threats or abuse. Denies injuries from another. Nutritional nj1 screening: No deficits noted. Tuberculosis screening: No symptoms or risk factors identified. Assessment: 15:00 General: Appears in no apparent distress. comfortable, Behavior is calm, cooperative, nj1 appropriate for age. Pain: Complains of pain in left leg Pain currently is 8 out of 10 on a pain scale. Neuro: Level of Consciousness is awake, alert, obeys commands, Oriented to person, place, time, situation. 15:00 Cardiovascular: Patient's skin is warm and dry. Respiratory: Airway is patent nj1 Respiratory effort is even, unlabored. Derm: Swelling/erythema noted to left lower leg. 16:00 Reassessment: Patient appears in no apparent distress at this time. Patient and/or nj1 family updated on plan of care and expected duration. Pain level reassessed. Patient is alert, oriented x 3, equal unlabored respirations, skin warm/dry/pink. 16:00 Pain: Complains of pain in left arm Pain currently is 8 out of 10 on a pain scale. nj1 18:35 Reassessment: Patient appears in no apparent distress at this time. Patient and/or nj1 family updated on plan of care and expected duration. Pain level reassessed. Patient is alert, oriented x 3, equal unlabored respirations, skin warm/dry/pink. Vital Signs: 14:37 BP 112 / 63; Pulse 92; Resp 18; Temp 98.9; Pulse Ox 97% ; Weight 145.15 kg; Height 5 nj1 ft. 6 in. ; Pain 8/10; 15:30 BP 130 / 68; Pulse 91; Resp 21; Pulse Ox 100% on R/A; nj1 16:40 BP 135 / 77; Pulse 98; Resp 22; Pulse Ox 98% on R/A; nj1 17:45 BP 115 / 56; Pulse 95; Resp 18; Pulse Ox 98% on R/A; Pain 3/10; nj1 18:31 BP 136 / 76; Pulse 94; Resp 19; Pulse Ox 100% on R/A; Pain 2/10; nj1 19:32 BP 132 / 72; Pulse 89; Resp 16; Temp 98; Pulse Ox 99% on R/A; kl 14:37 Body Mass Index 51.65 (145.15 kg, 167.64 cm) nj1 14:37 Pain Scale: Adult nj1 17:45 Pain Scale: Adult nj1 18:31 Pain Scale: Adult nj1 ED Course: 13:53 Patient arrived in ED. am2 13:54 Sania Cochran F[facility]-C [facility] snw 13:54 Rubin Weir MD is Attending Physician. snw 14:29 US Extremity Venous W Compression [place] In Process Unspecified. EDMS 14:34 Christine Estevez, RN is Primary Nurse. nj1 15:00 Patient has correct armband on for positive identification. Bed in low position. Call [facility] light in reach. 15:10 Inserted saline lock: 20 gauge in right antecubital area, using aseptic technique. nj1 Blood collected. 15:24 Triage completed. nj1 15:25 Arm band placed on. nj1 16:47 Jerry Beebe MD is Hospitalizing Provider. snw 17:16 Tib Fib Left Wo Con In Process Unspecified. EDMS 18:36 No provider procedures requiring assistance completed. nj1 19:33 Patient admitted, IV remains in place. Administered Medications: 17:05 Drug: Diazepam IVP 5 mg Route: IVP; Site: right antecubital; nj1 17:45 Follow up: Response: No adverse reaction; Pain is decreased nj1 17:06 Drug: Ampicillin-Sulbactam Sodium IVPB 3 grams Route: IVPB; Infused Over: 30 mins; nj1 Site: right antecubital; 17:45 Follow up: Response: No adverse reaction nj1 18:06 Follow up: IV Status: Completed infusion; IV Intake: 100ml nj Medication: 18:36 VIS not applicable for this client. nj1 Intake: 18:06 IV: 100ml; Total: 100ml. nj1 Outcome: 16:48 Decision to Hospitalize by Provider. snw 19:32 Admitted to Tele via wheelchair, room 405, with chart, Report called to taylor mckeon 19:32 Condition: stable 20:06 Patient left the ED. linda Signatures: Dispatcher [employer] EDMS Evangelina Maloney RN RN kl Waters, Shelly, FNP-C APPLICATIONS TRAINER-Csnw Valerie Ruiz am2 Christine Estevez, RN PING [facility]
[2023-01-04] MEDS ORDERED: DIAZEPAM 10 MG/2 ML INJ SYRINGE ONE (17:05)
[2023-01-04] MEDS ORDERED: NA CHLORIDE 0.9% 100 ML ONE (17:05)
[2023-01-04] MEDS ORDERED: AMPICILLIN/SULBACTAM 3GM/VIAL ONE (17:05)
--- NOTE | 2023-01-04 18:20 | RAD REPORT ---
EXAM DESCRIPTION: CT - Tib Fib Left Wo Con - 01/04/2023 5:15 pm CLINICAL HISTORY: eval Cellulitis COMPARISON: Lower Extremity W/ Cont dated 12/10/2022; Tib Fib Left dated 12/09/2022; Extrem Venous W Com press [place] dated 01/04/2023 TECHNIQUE: Thin cut axial CT imaging of the left lower leg, performed without IV contrast. Multiplan ar reformats were generated and reviewed. All CT scans are performed using dose optimization technique as appropriate and may include automated exposure control or mA/KV adjustment according to patient size. FINDINGS: No evidence of acute fracture or dislocation. Sequelae of tibial intramedullary nail with transfixing screws. No evidence of hardware complications . Well-formed callus along a prior midshaft fibular fracture, and the distal tibial fracture. A small f ocal region of medial anterior tibial subperiosteal bone deposition and ossification of the overlying fascia, nonspecific and could relate to sequelae of fracture healing or prior infection. Diffuse subcutaneous soft tissue edema with skin thickening involving the lower 2/3 of the lower leg. Non focal crescentic fluid accumulation anteriorly, measuring up to 12.3 centimeter in thickness, ov erlying the deep fascia, favored to represent pronounced edema rather than a phlegmon or fluid collec tion. Evaluation is limited in the absence of intravenous contrast. No discrete abnormalities noted in the muscle compartments. Small foci of ossification along the dist al peroneus longus tendon. Other major tendinous structures are unremarkable. IMPRESSION: Subcutaneous edema and nonlocalized fluid accumulation along the anterior lower leg as a nataliia, may reflect sequelae of cellulitis. No findings to suggest a localized fluid collection or absc ess formation within limits of noncontrast technique. No acute fracture. Well-formed calluses along the mid fibular shaft and distal tibial shaft, related to prior fracture h ealing. Small region of medial anterior tibial subperiosteal bone deposition and ossification of the overlyin g fascia, nonspecific, could relate to sequelae of fracture healing or prior infection.
[2023-01-04] MEDS: ACETAMINOPHEN 500 MG TAB PO PRN (20:58)
[2023-01-04] MEDS: CEFEPIME 1 GM in NA CHLORIDE 0.9% 100 ML IV SCH (20:59)
[2023-01-04] MEDS: ENOXAPARIN 40 MG/0.4 ML SQ SCH (20:59)
[2023-01-04] MEDS: VANCOMYCIN 2 GM in NA CHLORIDE 0.9% 500 ML IVPB SCH (20:59)
[2023-01-04] MEDS ORDERED: VANCOMYCIN 2 GM in NA CHLORIDE 0.9% 500 ML IVPB SCH (21:00)
[2023-01-04 22:52] VITALS: BMI 51.6
[2023-01-05 04:10] LABS: Absolute Lymphocytes (CBC) 0.9 K/uL (0.7-4.9); Hematocrit 33.9 % (36.0-45.0); Lymphocytes % 10.7 % (15.3-44.8); MCV 83.8 fL (80-100); MPV 7.9 fL (7.6-11.3); Protime INR 1.35; RBC Red Blood Cell Count 4.05 M/uL (3.86-4.86)
[2023-01-05 04:23] LABS: Phosphorus 3.3 mg/dL (2.5-4.9); Potassium 3.2 mEq/L (3.5-5.1)
[2023-01-05] MEDS: CEFEPIME 1 GM in NA CHLORIDE 0.9% 100 ML IV SCH ×2 (06:09→17:15)
[2023-01-05] MEDS: ENOXAPARIN 40 MG/0.4 ML SQ SCH (08:50)
[2023-01-05] MEDS: VANCOMYCIN 2 GM in NA CHLORIDE 0.9% 500 ML IVPB SCH ×2 (08:51→20:46)
--- NOTE | 2023-01-05 12:30 | P.PN ---
Subjective Date of Service: 01/05/23 Chief Complaint: Cellulitis Subjective: No new changes, Improving Physical Examination - Vital Signs Temperature: 98.4 F Blood Pressure: 111/57 Pulse: 86 Respirations: 16 Pulse Ox (%): 96 - Physical Exam General: Alert, Oriented x3 HEENT: Atraumatic, Normocephalic Neck: Supple Respiratory: Normal air movement Cardiovascular: Regular rate/rhythm, Normal S1 S2 Gastrointestinal: Soft and benign Musculoskeletal: Erythema, Tenderness Neurological: Normal speech - Studies Laboratory Data (last 24 hrs) 01/04/23 15:10: PT 16.4 H, INR 1.49, APTT 26.6 01/04/23 15:10: Sodium 133 L, Potassium 3.1 L, BUN 8, Creatinine 0.69, Glucose 112 H, Total Bilirubin 0.5, AST 27, ALT 34, Alkaline Phosphatase 136 H 01/04/23 15:10: WBC 10.10, Hgb 10.8 L, Hct 33.2 L, Plt Count 258 Assessment And Plan - Plan - Plan # Sepsis secondary to Left Lower Extremity Cellulitis # Chronic Lower Extremity Seroma # Morbid Obesity - BMI 51.6 kg/m2 - Bilateral lower extremity Doppler = "no evidence of DVT in either lower extremity. Slightly improved edema along the left lower leg. " -Continue on vancomycin + cefepime pending culture report. - Blood cultures x 2 obtained, awaiting results. - Lactate = 1.7 - General Surgery consulted - recommendations appreciated - Wound care consulted. #Hypokalemia: Low potassium noted at 3.2 today. We will replete and monitor. # Bipolar Disorder - Not on medication at home. # Tobacco Use Disorder - Tobacco cessation counseling provided
[2023-01-05] MEDS: ACETAMINOPHEN 500 MG TAB PO PRN ×2 (13:04→20:44)
--- NOTE | 2023-01-05 13:47 | EKG ---
Test Date: 2023-01-04 Test Time: 15:57:09 Office Services Specialist: JOHN MEASUREMENT RESULTS: Intervals: Rate: 94 WI: 130 QRSD: 86 QT: 366 QTc: 457 [place]: P: 59 WI: 130 QRS: 19 T: 39 INTERPRETIVE STATEMENTS: Normal sinus rhythm Normal ECG Compared to ECG 12/08/2022 23:46:17 Sinus tachycardia no longer present Electronically Signed On 01-05-23 13:46:26 CDT by Pravin Garner
[2023-01-05 22:09] VITALS: O2SAT 95
[2023-01-06] MEDS: CEFEPIME 1 GM in NA CHLORIDE 0.9% 100 ML IV SCH (06:25)
[2023-01-06 08:21] VITALS: BP 132/60; TEMP 97
[2023-01-06] MEDS: ENOXAPARIN 40 MG/0.4 ML SQ SCH (08:39)
[2023-01-06] MEDS: VANCOMYCIN 2 GM in NA CHLORIDE 0.9% 500 ML IVPB SCH (08:40)
[2023-01-06] MEDS ORDERED: VANCOMYCIN 1.5 GM in NA CHLORIDE 0.9% 500 ML IVPB SCH (17:00)
== END 2023-01-06 09:29 | disposition left against medical advice (07) ==
LOC: ER 13:04 → ERHOLD 17:36 → 4TH 19:41
PROVIDERS: ADMIT Internal Medicine; ATTEND Internal Medicine Nephrology
DX: L03.116 Cellulitis of left lower limb (principal); A41.9 Sepsis, unspecified organism; E66.9 Obesity, unspecified; E87.6 Hypokalemia; F31.9 Bipolar disorder, unspecified; F17.210 Nicotine dependence, cigarettes, uncomplicated; Z68.43 Body mass index [BMI] 50.0-59.9, adult
CPT/HCPCS: 96365; 93005; 87040 ×2; 85025 ×2; 80048; 36415 ×2; 83735; 84100; 85610 ×2; 82947; 83605; 85730; 80202; 80053; 73700; 93970; 96375; 99285; J1650 ×3; J3360; J0295; J7040 ×3; J0692 ×4; G0378 ×5

== ENCOUNTER → 2023-08-18 | Emergency (ER) | payer OTHER ==
[~2023-08-18] MED LIST: CEFTRIAXONE 1000 MG/VIAL ONE; HYDROCODONE/APAP 5/325 MG TAB ONE; IBUPROFEN 400 MG TAB ONE; LIDOCAINE 1% 20 ML MDV ONE; ONDANSETRON 4 MG (ODT) TAB ONE; SMZ./TMP. 800/160 MG TABLET ONE
--- NOTE | 2023-08-18 21:59 | RAD REPORT ---
EXAM DESCRIPTION: USExtremity Venous Uni Ltd08/18/2023 9:20 pm CLINICAL HISTORY: left leg swelling COMPARISON: None FINDINGS: Left common femoral, superficial femoral, greater saphenous, popliteal and posterior tibi al veins are compressible and demonstrate augmentation. Doppler demonstrates good flow. Grayscale, color and spectral analysis performed on all vessels IMPRESSION: No evidence of deep venous thrombosis involving the left lower extremity.
[2023-08-18 22:35] LABS: Absolute Lymphocytes (CBC) 1.1 K/uL (0.7-4.9); Hematocrit 35.4 % (36.0-45.0); Lymphocytes % 15.8 % (15.3-44.8); MCV 84.5 fL (80-100); MPV 7.9 fL (7.6-11.3); Platelets 337 thou/uL (152-406); RBC Red Blood Cell Count 4.19 M/uL (3.86-4.86)
[2023-08-18 22:45] LABS: Specific Gravity 1.025 (1.005-1.030); Urine Bacteria <20 /HPF (<20); Urine Bilirubin NEGATIVE (Negative); Urine Blood Negative (Negative); Urine Clarity Extremely Turbid (Clear); Urine Color Light-Yellow (Yellow); Urine Glucose NEGATIVE (Negative); Urine Mucus 1+ /HPF (None Seen); Urine Protein NEGATIVE (Negative); Urine RBC <5 /HPF (None Seen); Urine Urobilinogen Normal (Normal); Urine WBC Clump Rare /HPF (None Seen); Urine pH 6.5 (5.0-7.0)
[2023-08-18 22:47] LABS: Albumin 3.3 g/dL (3.4-5.0); Bilirubin Total 0.2 mg/dL (0.2-1.0); Potassium 3.6 mEq/L (3.5-5.1); Protein, Total 7.7 g/dL (6.4-8.2)
--- NOTE | 2023-08-18 23:59 | ER ---
Nurse's Notes [facility] Name: Kandis Juan Age: 43 yrs Sex: Female : 1980 Arrival Date: 08/18/2023 Time: 20:17 Bed 13 Private MD: Diagnosis: Cutaneous abscess of left lower limb;Flexural eczema;Left lower anterior leg abscess and cellulitis. Infected sebaceous cyst, chronic eczema Presentation: 08/18 21:05 Chief complaint: Patient states: Arms and lower legs hurting for about 2 weeks, getting nj1 worse. Concerned she may have infection on her left leg, has been seen here before for it, "hole has never healed completely". Coronavirus screen: Vaccine status: Patient reports being unvaccinated. Ebola Screen: Patient denies travel to an Ebola-affected area in the 21 days before illness onset. Initial Sepsis Screen: Does the patient meet any 2 criteria? No. Patient's initial sepsis screen is negative. Does the patient have a suspected source of infection? No. Patient's initial sepsis screen is negative. Risk Assessment: Do you want to hurt yourself or someone else? Patient reports no desire to harm self or others. Onset of symptoms was August 2023. 21:05 Method Of Arrival: Ambulatory nj1 21:05 Acuity: RONNY 3 nj1 Historical: - Allergies: 21:09 No Known Allergies; nj1 - PMHx: 21:09 Bipolar disorder; Cellulitis; Left leg; Eczema (Unknown); nj1 - PSHx: 21:09 section; section; Leg surgery; Ligation of fallopian tube; nj1 - Immunization history:: Client reports having NOT received the Covid vaccine. - Social history:: Smoking status: Patient reports the use of cigarette tobacco products, smokes one-half pack cigarettes per day. Screenin:45 [facility] ED Fall Risk Assessment (Adult) History of falling in the last 3 months, nw1 including since admission No falls in past 3 months (0 pts) Confusion or Disorientation No (0 pts) Intoxicated or Sedated No (0 pts) Impaired Gait Yes (1 pt) Mobility Assist Device Used Yes (1 pt) Altered Elimination No (0 pt) Score/Fall Risk Level 3 or more points = High Risk Oriented to surroundings, Maintained a safe environment, Educated pt \\T\\ family on fall prevention, incl call for assistance when getting out of bed, Assessed \\T\\ reinforced patient's understanding of fall precautions, Provided non-skid footwear, Hourly rounding (assess needs \\T\\ fall precautionary measures) done, Used ambulatory aids as needed (educated on \\T\\ assisted with). Abuse screen: Denies threats or abuse. Denies injuries from another. Nutritional screening: No deficits noted. Tuberculosis screening: No symptoms or risk factors identified. Assessment: 23:36 Reassessment: Report received. Pt noted in bed. IV to RAC. Pt placed on monitor. States nw1 bilateral leg burning, stating it is her eczema. Pt denies any other needs/wants. Denies f/u appointment after leaving AMA with last hospitalization. Call light at bedside. 0 s/s of acute distress noted at this time. Pain:. Vital Signs: 21:05 BP 121 / 77; Pulse 87; Resp 18; Temp 98.2(TE); Pulse Ox 98% ; Weight 143.79 kg; Height nj1 5 ft. 7 in. ; Pain 7/10; 23:30 BP 130 / 73; Pulse 85; Resp 17; Pulse Ox 95% on R/A; nw1 23:45 BP 124 / 69; Pulse 85; Resp 17; Pulse Ox 96% on R/A; nw1 08/19 00:13 BP 125 / 70; Pulse 88; Resp 19; Pulse Ox 100% on R/A; nw1 08/18 21:05 Body Mass Index 49.65 (143.79 kg, 170.18 cm) nj1 08/18 21:05 Pain Scale: Adult [facility] [place] Coma Score: 08/18 23:30 Eye Response: spontaneous(4). Motor Response: obeys commands(6). Verbal Response: nw1 oriented(5). Total: 15. ED Course: 20:31 Patient arrived in ED. gm2 20:46 Dave Rios MD is Attending Physician. sp4 21:09 Triage completed. nj1 21:10 Arm band placed on right wrist. nj1 21:22 Extremity Venous Uni Ltd US In Process Unspecified. EDMS 23:10 Chica Sanchez, RN is Primary Nurse. nw1 23:45 Patient has correct armband on for positive identification. Placed in gown. Bed in low nw1 position. Call light in reach. Side rails up X2. Provided Education on: POC. Client placed on continuous cardiac and pulse oximetry monitoring. NIBP monitoring applied. leaf sucker operator on. Pulse ox on. NIBP on. Door closed. Warm blanket given. 23:45 Assist provider with I \\T\\ D: of an abscess on left Set up I\\T\\D tray. Performed by Dave nw 1 Gabriel ÁLVAREZ Dressing with. 23:45 Inserted saline lock: 20 gauge in right antecubital area, using aseptic technique. nw1 Blood collected. 23:57 Michele Sandoval MD is Referral Physician. sp4 08/19 00:14 IV discontinued, intact, bleeding controlled, No redness/swelling at site. Pressure nw1 dressing applied. Administered Medications: 08/18 22:22 Drug: HYDROcodone-acetaminophen PO 5 mg-325 mg 2 tabs PO once Route: PO; lg3 22:22 Drug: Ondansetron PO 4 mg PO once Route: PO; lg3 22:22 Drug: Ibuprofen PO 800 mg PO once Route: PO; lg3 22:38 Drug: Rocephin - Rocephin (cefTRIAXone) IVPB 1 grams IVPB once over 30 mins; (mix in 50 lg3 mL NS) Route: IVPB; Infused Over: 30 mins; Site: right antecubital; 22:38 Drug: Trimethoprim-Sulfamethoxazole PO (160 mg-800 mg (DS) 1 tablet PO once Route: PO; lg3 23:45 Drug: Lidocaine Infiltration (1 %) 20 ml 20 ml Infiltration once; to bedside Volume: 20 nw1 ml; Route: Infiltration; Medication: 23:45 VIS not applicable for this client. nw1 Outcome: 23:58 Discharge ordered by . sp4 08/19 00:14 Discharged to home ambulatory, nw1 Condition: stable Discharge instructions given to patient, Instructed on discharge instructions, follow up and referral plans. medication usage, Demonstrated understanding of instructions, follow-up care, medications, wound care, Prescriptions given X 5 00:14 Patient left the ED. nw1 Signatures: Dispatcher [employer] EDMS Dominga Mireles RN RN lg3 Dave Rios MD MD sp4 Christine Estevez RN RN nj1 Grace Quinn 2 Chica Sanchez RN RN nw1 Corrections: (The following items were deleted from the chart) 08/18 21:10 21:05 Pulse 87bpm; Resp 18bpm; Pulse Ox 98%; Temp 98.2F Temporal; 143.79 kg; Height 5 nj1 ft. 7 in.; BMI: 49.6; Pain 02/12, Adult; nj1
--- NOTE | 2023-08-18 23:59 | EDPHYS ---
Physician Documentation [facility] Name: Kandis Juan Age: 43 yrs Sex: Female : 1980 Arrival Date: 08/18/2023 Time: 20:17 Bed 13 Private MD: ED Physician Dave Rios HPI: 08/18 20:46 This 43 yrs old Female presents to ER via Unassigned with complaints of Leg sp4 Pain, Arm Pain. 20:46 PMH - LMP N/A - Irregular menses Historical: Allergies: No Known Allergies; PMHx: sp4 Bipolar disorder; Cellulitis; Left leg; PSHx: section; Leg surgery; section; Ligation of fallopian tube; . Historical: - Allergies: 21:09 No Known Allergies; nj1 - PMHx: 21:09 Bipolar disorder; Cellulitis; Left leg; Eczema (Unknown); nj1 - PSHx: 21:09 section; section; Leg surgery; Ligation of fallopian tube; nj1 - Immunization history:: Client reports having NOT received the Covid vaccine. - Social history:: Smoking status: Patient reports the use of cigarette tobacco products, smokes one-half pack cigarettes per day. Vital Signs: 21:05 BP 121 / 77; Pulse 87; Resp 18; Temp 98.2(TE); Pulse Ox 98% ; Weight 143.79 kg; Height nj1 5 ft. 7 in. ; Pain 7/10; 23:30 BP 130 / 73; Pulse 85; Resp 17; Pulse Ox 95% on R/A; nw1 23:45 BP 124 / 69; Pulse 85; Resp 17; Pulse Ox 96% on R/A; nw1 08/19 00:13 BP 125 / 70; Pulse 88; Resp 19; Pulse Ox 100% on R/A; nw1 08/18 21:05 Body Mass Index 49.65 (143.79 kg, 170.18 cm) nj1 08/18 21:05 Pain Scale: Adult nj1 [place] Coma Score: 08/18 23:30 Eye Response: spontaneous(4). Motor Response: obeys commands(6). Verbal Response: nw1 oriented(5). Total: 15. MDM: 20:47 Patient medically screened. sp4 08/18 20:51 Order name: CBC with Diff; Complete Time: 23:38 sp4 08/18 20:51 Order name: CMP; Complete Time: 23:38 sp4 08/18 20:51 Order name: Lipase; Complete Time: 23:38 sp4 08/18 20:51 Order name: Urinalysis w/ reflexes; Complete Time: 23:38 sp4 08/18 20:53 Order name: Blood Culture Adult (2) sp4 08/18 20:54 Order name: Extremity Venous Uni Ltd US; Complete Time: 23:38 sp4 08/18 20:51 Order name: IV Saline Lock; Complete Time: 22:22 sp4 08/18 20:51 Order name: Labs collected and sent; Complete Time: 22:22 sp4 Administered Medications: 22:22 Drug: HYDROcodone-acetaminophen PO 5 mg-325 mg 2 tabs PO once Route: PO; lg3 22:22 Drug: Ondansetron PO 4 mg PO once Route: PO; lg3 22:22 Drug: Ibuprofen PO 800 mg PO once Route: PO; lg3 22:38 Drug: Rocephin - Rocephin (cefTRIAXone) IVPB 1 grams IVPB once over 30 mins; (mix in 50 lg3 mL NS) Route: IVPB; Infused Over: 30 mins; Site: right antecubital; 22:38 Drug: Trimethoprim-Sulfamethoxazole PO (160 mg-800 mg (DS) 1 tablet PO once Route: PO; lg3 23:45 Drug: Lidocaine Infiltration (1 %) 20 ml 20 ml Infiltration once; to bedside Volume: 20 nw1 ml; Route: Infiltration; Disposition Summary: 08/18/23 23:58 Discharge Ordered Problem: new sp4 Symptoms: have improved sp4 Condition: Stable sp4 Diagnosis - Cutaneous abscess of left lower limb sp4 - Flexural eczema sp4 - Left lower anterior leg abscess and cellulitis. Infected sebaceous cyst, sp4 chronic eczema Followup: sp4 - With: Michele Sandoval MD - When: 7 - 10 days - Reason: Recheck today's complaints Discharge Instructions: - Discharge Summary Sheet sp4 - Skin Abscess sp4 Forms: - Patient Portal Instructions sp4 Prescriptions: - Cephalexin 500 mg Oral Capsule - take 1 capsule ORAL route every 12 hours for 10 days; 20 capsule; Refills: 0, sp4 Product Selection Permitted - Ibuprofen 800 mg Oral Tablet - take 1 tablet ORAL route every 8 hours As needed take with food; 30 tablet; sp4 Refills: 0, Product Selection Permitted - Tramadol 50 mg Oral Tablet - take 1 tablet ORAL route every 8 hours as needed; 12 tablet; Refills: 0, sp4 Product Selection Permitted - Triamcinolone Acetonide 0.1 % Topical ointment - apply 1 application TOPICAL route every 12 hours As needed Apply twice daily sp4 for eczema for 14 days. Dispense 80 gram tube; 80 gram; Refills: 0, Product Selection Permitted - Bactrim DS 800-160 mg Oral Tablet - take 1 tablet ORAL route every 12 hours for 10 days; 20 tablet; Refills: 0, sp4 Product Selection Permitted Signatures: Dispatcher [employer] Dominga Samuel RN RN lg3 Dave Rios MD MD sp4 Christine Estevez RN RN nj1 Chica Sanchez RN RN nw1
[2023-08-19 02:09] VITALS: BP 125/70; TEMP 98.2; O2SAT 100
== END ==
LOC: ER 20:17
DX: L03.116 Cellulitis of left lower limb (principal); L30.9 Dermatitis, unspecified; L72.3 Sebaceous cyst; F17.210 Nicotine dependence, cigarettes, uncomplicated; Z28.310 Unvaccinated for COVID-19
CPT/HCPCS: 87040 ×2; 85025; 81001; 36415; 83690; 80053; 93971; 96374; 99285; Q0162; J2001; J0696

== ENCOUNTER 2023-11-02 22:01 | Emergency (ER) | payer OTHER ==
--- NOTE | 2023-11-02 22:56 | EDPHYS ---
Physician Documentation [facility] Alex Name: Kandis Juan Age: 43 yrs Sex: Female : 1980 Arrival Date: 11/02/2023 Time: 22:01 Bed IW4 Private MD: ED Physician Maged Nelson HPI: 11/01 22:53 This 43 yrs old Female presents to ER via Unassigned with complaints of leg kb infection. 22:53 Pt is a 43 year old female who presents for redness, swelling, warmth and pain to left kb lower leg that began 3 days ago. Reports history of infection in that leg back in August. States she has felt hot, but unknown is she has had fever. . ROS: 22:53 Constitutional: As per HPI kb Exam: 22:53 Constitutional: This is a well developed, well nourished patient who is awake, alert, kb and in no acute distress. Head/Face: Normocephalic, atraumatic. ENT: Moist Mucous membranes Cardiovascular: Regular rate Respiratory: Respirations even and unlabored. No increased work of breathing. Talking in full sentences Abdomen/GI: Soft, non-tender. No distention MS/ Extremity: Pulses equal, no cyanosis. Neurovascular intact. Full, normal range of motion. Neuro: Awake and alert, GCS 15, oriented to person, place, time, and situation. Moves all extremities. Normal gait. 22:53 Skin: cellulitis, that is moderate, on the left lower leg, MDM: 22:04 Patient medically screened. kb 22:53 Differential diagnosis: cellulitis, abscess. Data reviewed: vital signs, nurses notes. kb Consideration of Admission/Observation Escalation of care including admission/observation considered. admission considered but pt left prior to diagnostics without telling staff. Historians other than the Patient: EMS: [facility]. 11/01 22:05 Order name: EKG; Complete Time: 22:05 11/01 22:05 Order name: Accucheck 11/01 22:05 Order name: Cardiac monitoring 11/01 22:05 Order name: EKG - Nurse/Tech 11/01 22:05 Order name: IV Saline Lock - Large Bore 11/01 22:05 Order name: Labs collected and sent 11/01 22:05 Order name: O2 Per Protocol 11/01 22:05 Order name: O2 Sat Monitoring 11/01 22:05 Order name: Vital Signs kb Administered Medications: No medications were administered Disposition: 11/02 03:34 Co-signature as Attending Physician, Maged Nelson MD I reviewed the patient's care rt provided by the Advanced Practice Provider and agree with the diagnosis and treatment plan. Disposition Summary: 11/02/23 22:55 Discharge Ordered Notes: Location: Home kb Condition: Stable kb Diagnosis - Cellulitis of left lower limb kb Followup: kb - With: Emergency Department - When: As needed - Reason: Worsening of condition Followup: kb - With: Private Physician - When: 2 - 3 days - Reason: Recheck today's complaints, Continuance of care, Re-evaluation by your physician Discharge Instructions: - Discharge Summary Sheet kb - Cellulitis, Adult, Sule-ei-Uabw kb Forms: - Medication Reconciliation Form kb - Thank You Letter kb - Antibiotic Education kb - Prescription Opioid Use kb - Patient Portal Instructions kb - Leadership Thank You Letter kb Signatures: Dispatcher [employer] EDMS Armida Layne FNP-C ANALYTICS INTERN-Maged Heath MD MD rt Corrections: (The following items were deleted from the chart) 11/01 22:05 22:05 BLOOD CULTURE*+BA.LAB.BRZ ordered. EDMS EDMS 22:05 22:05 CBC+H.LAB.BRZ ordered. EDMS EDMS 22:05 22:05 COMPREHENSIVE METABOLIC PANEL+C.LAB.BRZ ordered. EDMS EDMS 22:05 22:05 LACTATE+C.LAB.BRZ ordered. EDMS EDMS 22:05 22:05 PROTIME (+INR)+COAG.LAB.BRZ ordered. EDMS EDMS 22:05 22:05 PTT, ACTIVATED+COAG.LAB.BRZ ordered. EDMS EDMS
--- NOTE | 2023-11-02 23:01 | ER ---
Nurse's Notes [facility] Name: Kandis Juan Age: 43 yrs Sex: Female : 1980 Arrival Date: 11/02/2023 Time: 22:01 Bed IW4 Private MD: Diagnosis: Cellulitis of left lower limb Presentation: 11/01 22:59 Chief complaint: Pt was seen by the provider and discharged before triage. Pt was not kd3 evaluated by this RN. ED Course: 22:02 Patient arrived in ED. ra3 22:04 [facility]ida Layne F[facility]-C [facility]. kb 22:04 Maged Nelson MD is Attending Physician. kb 22:59 Kristina Douglas, PING is Primary Nurse. kd3 Administered Medications: No medications were administered Outcome: 22:55 Discharge ordered by . kb 23:00 Patient left the ED. kd3 Signatures: Armida Layne FNP-C LEAD IOS DEVELOPER-Ckb Kristina Douglas, RN RN kd3 Christianne Lugo ra3
== END 2023-11-02 23:00 | disposition home or self-care (01) ==
LOC: ER 22:01
DX: L03.116 Cellulitis of left lower limb (principal)
CPT/HCPCS: 99281

== ENCOUNTER 2024-01-01 01:59 | Inpatient (IN) | payer OTHER ==
[2024-01-01] MEDS ORDERED: VANCOMYCIN 1 GM/VIAL ONE ×2 (02:59→07:14)
[2024-01-01] MEDS ORDERED: NA CHLORIDE 0.9% 250 ML ONE ×2 (03:00→07:14)
[2024-01-01] MEDS ORDERED: NA CHLORIDE 0.9% 100 ML ONE (03:00)
[2024-01-01] MEDS ORDERED: CEFEPIME 1 GM/VIAL ONE (03:00)
[2024-01-01] MEDS ORDERED: ACETAMINOPHEN 500 MG TAB ONE (03:00)
[2024-01-01 03:09] LABS: Absolute Lymphocytes (CBC) 0.3 K/uL (0.7-4.9); Absolute Monocytes 0.3 K/uL (0.1-1.3); Absolute Neutrophil 14.9 K/uL (1.8-8.0); Basophils % 0.3 % (0-1.3); Eosinophils % 0.1 % (0-4.4); Hematocrit 35.1 % (36.0-45.0); Hemoglobin 11.5 g/dL (12.0-15.0); Lymphocytes % 2.2 % (15.3-44.8); MCH 28.1 pg (27.0-35.0); MCHC 32.9 g/dL (32.0-36.0); MCV 85.5 fL (80-100); MPV 7.4 fL (7.6-11.3); Monocytes % 2.1 % (3.3-12.3); Neutrophils % 95.3 % (41.7-73.7); Platelets 308 thou/uL (152-406); Red Cell Distribution Width 15.2 % (12.1-15.2)
[2024-01-01 03:13] LABS: PT Prothrombin Time 13.3 SECONDS (9.5-12.5); PTT, Activated Partial Thromb 26.2 SECONDS (24.3-36.9); Protime INR 1.22
[2024-01-01 03:25] LABS: ALT/SGPT 18 U/L (13-56); AST/SGOT < 10 U/L (15-37); Albumin/Globulin Ratio 0.7 (1.1-1.8); Alkaline Phosphatase 106 U/L (45-117); Anion Gap 9.5 mEq/L (5.0-15.0); BUN Blood Urea Nitrogen 15 mg/dL (7-18); Bicarbonate 26 mEq/L (21-32); Bilirubin Total 0.4 mg/dL (0.2-1.0); Globulin 4.1 g/dL (2.3-3.5); Glomerular Filtration Rate 102 ml/min (=/>90); Glucose Level 111 mg/dL (74-106); Potassium 3.5 mEq/L (3.5-5.1); Protein, Total 7.1 g/dL (6.4-8.2); Sodium Level 133 mEq/L (136-145)
--- NOTE | 2024-01-01 03:35 | ER ---
Nurse's Notes [facility] Nikolas Name: Knadis Juan Age: 43 yrs Sex: Female : 1980 Arrival Date: 01/01/2024 Time: 01:59 Bed 6 Private MD: Diagnosis: Cellulitis of left lower limb;Sepsis, unspecified organism Presentation: 12/31 02:39 Chief complaint: Patient states: I have had cellulitis before. I think it may be back. jb4 I noticed it a day ago and now I have body aches and chills. Coronavirus screen: At this time, the client does not indicate any symptoms associated with coronavirus-19. Ebola Screen: No symptoms or risks identified at this time. 02:39 Method Of Arrival: Wheelchair jb4 02:39 Initial Sepsis Screen: Does the patient meet any 2 criteria? HR > 90 bpm. Yes Does the jb4 patient have a suspected source of infection? No. Patient's initial sepsis screen is negative. Risk Assessment: Do you want to hurt yourself or someone else? Patient reports no desire to harm self or others. Onset of symptoms was January 01, 2024. 02:39 Acuity: RONNY 3 jb4 02:39 Transition of care: patient was not received from another setting of care. jb4 TREATMENT SPECIALIST: 04:53 unknown bm8 Historical: - Allergies: 03:16 No Known Allergies; bm8 - Home Meds: 03:16 Unable to obtain [Active]; bm8 - PMHx: 03:16 Bipolar disorder; Cellulitis; Left leg; eczema (Unknown); bm8 - PSHx: 03:16 section; section; Leg surgery; Ligation of fallopian tube; bm8 - Immunization history:: Adult Immunizations unknown. - Infectious Disease History:: Denies. - Social history:: Smoking status: unknown. Screenin:16 [facility] ED Fall Risk Assessment (Adult) History of falling in the last 3 months, bm8 including since admission No falls in past 3 months (0 pts) Confusion or Disorientation No (0 pts) Intoxicated or Sedated No (0 pts) Impaired Gait No (0 pts) Mobility Assist Device Used No (0 pt) Altered Elimination No (0 pt) Score/Fall Risk Level 0 - 2 = Low Risk Oriented to surroundings, Maintained a safe environment, Educated pt \T\ family on fall prevention, incl call for assistance when getting out of bed. Abuse screen: Denies threats or abuse. Nutritional screening: No deficits noted. Tuberculosis screening: No symptoms or risk factors identified. Assessment: 03:13 Reassessment: Patient appears in no apparent distress at this time. Patient and/or bm8 family updated on plan of care and expected duration. Pain level reassessed. Patient is alert, oriented x 3, equal unlabored respirations, skin warm/dry/pink. General: Appears in no apparent distress. uncomfortable, Behavior is calm, cooperative, appropriate for age. Pain: Complains of pain in anterior aspect of left ankle Pain does not radiate. Pain currently is 8 out of 10 on a pain scale. Quality of pain is described as aching, Pain began 1 day ago. Neuro: No deficits noted. Level of Consciousness is awake, alert, obeys commands, Oriented to person, place, time, situation. Cardiovascular: Denies chest pain, Capillary refill < 3 seconds in bilateral fingers toes Patient's skin is warm and dry. Pulses are all present. Edema. Respiratory: Airway is patent Trachea midline Respiratory effort is even, unlabored, Respiratory pattern is regular, symmetrical. GI: No deficits noted. No signs and/or symptoms were reported involving the gastrointestinal system. : No deficits noted. No signs and/or symptoms were reported regarding the genitourinary system. EENT: No deficits noted. No signs and/or symptoms were reported regarding the EENT system. Derm: Rash noted that is red, raised, Reports burning, warm to touch, redness and swelling to left lower leg. Musculoskeletal: No deficits noted. No signs and/or symptoms reported regarding the musculoskeletal system. 04:50 Reassessment: Patient appears in no apparent distress at this time. Patient and/or bm8 family updated on plan of care and expected duration. Pain level reassessed. Patient is alert, oriented x 3, equal unlabored respirations, skin warm/dry/pink. Patient states feeling better. 05:49 General: Pt escorted to the restroom via wheelchair. Urine sample collected. . kd3 Vital Signs: 02:39 BP 152 / 84; Pulse 104; Resp 20; Temp 99.5(O); Pulse Ox 99% ; Weight 138.35 kg; Height jb4 5 ft. 7 in. ; 03:16 BP 135 / 82; Pulse 105; Resp 15; Temp 99.5; Pulse Ox 100% ; Pain 8/10; bm8 04:50 BP 142 / 91; Pulse 108; Resp 17; Temp 100; Pulse Ox 94% on R/A; Pain 4/10; bm8 02:39 Body Mass Index 47.77 (138.35 kg, 170.18 cm) jb4 03:16 Pain Scale: Adult bm8 04:50 Pain Scale: Adult bm8 Noble Coma Score: 03:16 Eye Response: spontaneous(4). Motor Response: obeys commands(6). Verbal Response: bm8 oriented(5). Total: 15. 04:50 Eye Response: spontaneous(4). Motor Response: obeys commands(6). Verbal Response: bm8 oriented(5). Total: 15. ED Course: 02:01 Patient arrived in ED. jj6 02:17 Reinaldo Turk MD is Attending Physician. ec2 02:43 Guille Abraham, PING is Primary Nurse. bm8 02:57 Initial lab(s) drawn, by ED staff, sent to lab. First set of blood cultures drawn by ED bm8 staff. 02:57 EKG done, by ED staff, reviewed by Reinaldo Turk MD. Inserted saline lock: 20 gauge in bm8 right antecubital area, using aseptic technique. Blood collected. 03:05 Second set of blood cultures drawn by tx. bm8 03:16 Patient has correct armband on for positive identification. Placed in gown. Bed in low bm8 position. Call light in reach. Side rails up X2. Adult w/ patient. Client placed on continuous cardiac and pulse oximetry monitoring. NIBP monitoring applied. clinical trial data manager on. Pulse ox on. NIBP on. Door closed. Noise minimized. Visitors limited. Warm blanket given. Verbal reassurance given. Head of bed elevated. 03:16 No provider procedures requiring assistance completed. bm8 03:34 [place] Yoo MD is Hospitalizing Provider. ec2 04:11 Triage completed. jb4 04:50 Provided Education on: need for admit. bm8 04:50 Patient admitted, IV remains in place. bm8 04:54 Arm band placed on right wrist. bm8 Administered Medications: 03:12 Drug: Acetaminophen PO 1000 mg PO once Route: PO; bm8 04:55 Follow up: Response: No adverse reaction bm8 03:12 Drug: vancoMYCIN IVPB 1 grams IVPB once over 2 hrs Route: IVPB; Infused Over: 2 hrs; bm8 Site: right antecubital; 04:55 Follow up: Response: No adverse reaction; IV Status: Infusion continued upon admission bm8 03:12 Drug: Cefepime IVPB 1 grams IVPB at 200 ml/hr once over 30 mins; (mix in NS 100 mL) bm8 Route: IVPB; Rate: 200 ml/hr; Infused Over: 30 mins; Site: right antecubital; 04:55 Follow up: Response: No adverse reaction; IV Status: Completed infusion; IV Intake: bm8 100ml Medication: 03:16 VIS not applicable for this client. bm8 Intake: 04:55 IV: 100ml; Total: 100ml. bm8 Outcome: 03:34 Decision to Hospitalize by Provider. ec2 04:50 Admitted to ER Hold. Please see [facility] for further documentation. bm8 04:50 Condition: stable 04:50 Instructed on the need for admit, 16:21 Patient left the ED. ko1 Signatures: Antwon Antonio RN RN jb4 Katie Lawler6 Kristina Douglas RN RN kd3 Deb Quijano RN RN ko1 Reinaldo Turk MD MD ec2 Guille Abraham RN RN bm8
--- NOTE | 2024-01-01 03:35 | EDPHYS ---
Physician Documentation [facility] Alex Name: Kandis Juan Age: 43 yrs Sex: Female : 1980 Arrival Date: 01/01/2024 Time: 01:59 Bed 6 Private MD: ED Physician Reinaldo Turk HPI: 12/31 02:35 This 43 yrs old Female presents to ER via Unassigned with complaints of Leg ec2 Swelling, Leg Pain, REDNESS OF LEG. 02:35 Patient arrives today for evaluation of redness and pain to the left distal leg. ec2 Patient reports that she has been experiencing worsening redness over the past day. Patient reports no fevers or chills, no nausea or vomiting. Patient reports that she had developed cellulitis in this leg before and has required inpatient hospitalization in the past. Patient denies any falls injuries or trauma.. INFORMATION SECURITY OFFICER: 04:53 unknown bm8 Historical: - Allergies: 03:16 No Known Allergies; bm8 - Home Meds: 03:16 Unable to obtain [Active]; bm8 - PMHx: 03:16 Bipolar disorder; Cellulitis; Left leg; eczema (Unknown); bm8 - PSHx: 03:16 section; section; Leg surgery; Ligation of fallopian tube; bm8 - Immunization history:: Adult Immunizations unknown. - Infectious Disease History:: Denies. - Social history:: Smoking status: unknown. ROS: 02:35 Constitutional: as per hpi ec2 Exam: 02:35 Constitutional: GEN: NAD Head: atraumatic Eyes: EOMI Ears: External ears are ec2 normal. CV: regular rate LUNGS: no respiratory distress ABD: non-distended SKIN: Left distal tibia with significant erythema and warmth appreciated. MSK: no evidence of trauma NEURO: moves all extremities equally Vital Signs: 02:39 BP 152 / 84; Pulse 104; Resp 20; Temp 99.5(O); Pulse Ox 99% ; Weight 138.35 kg; Height jb4 5 ft. 7 in. ; 03:16 BP 135 / 82; Pulse 105; Resp 15; Temp 99.5; Pulse Ox 100% ; Pain 8/10; bm8 04:50 BP 142 / 91; Pulse 108; Resp 17; Temp 100; Pulse Ox 94% on R/A; Pain 4/10; bm8 02:39 Body Mass Index 47.77 (138.35 kg, 170.18 cm) jb4 03:16 Pain Scale: Adult bm8 04:50 Pain Scale: Adult bm8 Natalia Coma Score: 03:16 Eye Response: spontaneous(4). Motor Response: obeys commands(6). Verbal Response: bm8 oriented(5). Total: 15. 04:50 Eye Response: spontaneous(4). Motor Response: obeys commands(6). Verbal Response: bm8 oriented(5). Total: 15. MDM: 02:17 Patient medically screened. ec2 02:35 Data reviewed: vital signs. ED course: Patient arrives today for leg redness. ec2 Examination remarkable for skin findings as above. Will obtain lab work, empirically treat with antibiotics. Differential diagnosis includes cellulitis, doubt DVT, doubt dependent edema.. 03:10 ED course: EKG independently reviewed and interpreted by me, shows sinus tachycardia, ec2 105, no acute ST segment elevations, intervals are nonconcerning. . 03:33 ED course: CBC shows leukocytosis with WBC of 15.7. Metabolic profile is nonactionable, ec2 lactate is within normal ranges. Will admit the patient for sepsis secondary to cellulitis. Discussed case with the hospitalist, pending admission. . 12/31 02:34 Order name: Blood Culture Adult (2) ec2 12/31 02:34 Order name: CBC with Diff ec2 12/31 02:34 Order name: CMP; Complete Time: 03:33 ec2 12/31 02:34 Order name: Lactate w/ 2H reflex if indic.; Complete Time: 03:33 ec2 12/31 02:34 Order name: Protime (+inr); Complete Time: 03:33 ec2 12/31 02:34 Order name: Ptt, Activated; Complete Time: 03:33 ec2 12/31 03:19 Order name: Manual Differential EDMS 12/31 04:08 Order name: Urinalysis w/ reflexes EDMS 12/31 04:08 Order name: CBC with Automated Diff EDMS 12/31 04:08 Order name: CBC with Automated Diff EDMS 12/31 04:08 Order name: Comprehensive Metabolic Panel EDMS 12/31 04:08 Order name: Comprehensive Metabolic Panel EDMS 12/31 11:27 Order name: US EDMS 12/31 02:34 Order name: EKG; Complete Time: 02:35 ec2 12/31 02:34 Order name: Accucheck; Complete Time: 03:13 ec2 12/31 02:34 Order name: Cardiac monitoring; Complete Time: 03:13 ec2 12/31 02:34 Order name: EKG - Nurse/Tech; Complete Time: 03:12 ec2 12/31 02:34 Order name: IV Saline Lock - Large Bore; Complete Time: 03:12 ec2 12/31 02:34 Order name: Labs collected and sent; Complete Time: 03:12 ec2 12/31 02:34 Order name: O2 Per Protocol; Complete Time: 03:12 ec2 12/31 02:34 Order name: O2 Sat Monitoring; Complete Time: 03:12 ec2 12/31 02:34 Order name: Vital Signs; Complete Time: 03:12 ec2 Administered Medications: 03:12 Drug: Acetaminophen PO 1000 mg PO once Route: PO; bm8 04:55 Follow up: Response: No adverse reaction bm8 03:12 Drug: vancoMYCIN IVPB 1 grams IVPB once over 2 hrs Route: IVPB; Infused Over: 2 hrs; bm8 Site: right antecubital; 04:55 Follow up: Response: No adverse reaction; IV Status: Infusion continued upon admission bm8 03:12 Drug: Cefepime IVPB 1 grams IVPB at 200 ml/hr once over 30 mins; (mix in NS 100 mL) bm8 Route: IVPB; Rate: 200 ml/hr; Infused Over: 30 mins; Site: right antecubital; 04:55 Follow up: Response: No adverse reaction; IV Status: Completed infusion; IV Intake: bm8 100ml Disposition Summary: 01/01/24 03:34 Hospitalization Ordered Notes: Hospitalization Status: Inpatient Admission ec2 Provider: [place] Yoo ecYadira Condition: Stable ec2 Problem: an ongoing problem ec2 Symptoms: have improved ec2 Bed/Room Type: Standard ec2 Location: Telemetry/MedSurg (Inpatient)(01/01/24 15:05) chloé Room Assignment: 205(01/01/24 15:05) chloé Diagnosis - Cellulitis of left lower limb ec2 - Sepsis, unspecified organism ec2 Forms: - Medication Reconciliation Form ec2 - SBAR form ec2 - Leadership Thank You Letter ec2 Critical care time excluding procedures: 03:34 Critical care time: Bedside Care: 30 minutes, Consultation: 5 minutes. Total time: 35 ec2 minutes Signatures: Dispatcher [employer] Marci De Los Santos, RN RN cg Jesse Boyce RN RN ja1 Reinaldo Turk MD MD ec2 Guille Abraham RN RN bm8 Corrections: (The following items were deleted from the chart) 04:35 03:34 Telemetry/MedSurg (Inpatient) ec2 cg 04:35 03:34 ec2 cg 15:05 04:35 [facility] ER HOLD cg ja1 15:05 04:35 ERHOLD- cg ja1
[2024-01-01] MEDS ORDERED: ACETAMINOPHEN 325 MG TABLET PO PRN (04:03)
[2024-01-01] MEDS ORDERED: ONDANSETRON 4 MG/2 ML VIAL IV PRN (04:03)
--- NOTE | 2024-01-01 04:08 | P.HP ---
Certification for Inpatient Patient admitted to: Inpatient With expected LOS: >2 Midnights Practitioner: I am a practitioner with admitting privileges, knowledge of patient current condition, hospital course, and medical plan of care. Services: Services provided to patient in accordance with Admission requirements found in Title 42 Section 412.3 of the Code of Federal Regulations Patient History Date of Service: 01/01/24 Reason for admission: Pain and swelling leg History of Present Illness: 43 yrs old Female with past medical history of bipolar disorder and eczema who presents with complaints of pain and swelling and redness of left lower leg . She started having pain few days ago and has been progressively worsening. Associated with no fever or chills. No history of trauma. Patient noticed that her pain and redness is increasing associated with some swelling. Patient had a previous history of cellulitis of the same leg and required admission to the hospital. No nausea vomiting or diarrhea. No chest pain or shortness of breath. Patient was assessed in the ER and was admitted for further management of cellulitis Allergies No Known Allergies Allergy (Unverified 12/09/22 02:22) Home medications list reviewed: Yes Home Medications: NK [No Home Meds] 01/04/23 - Past Medical/Surgical History Diabetic: No Past Medical History: Reviewed- Non-Contributory -: Bipolar Disorder -: Recurrent cellulitus LLE Past Surgical History: Reviewed- Non-Contributory -: -: Left tibia repair Psychosocial/ Personal History: Patient lives at home alone. - Social History Smoking Status: Never smoker Alcohol use: Yes CD- Drugs: No Caffeine use: Yes Review of Systems 10-point ROS is otherwise unremarkable Physical Examination - Vital Signs Temperature: 98.2 F Blood Pressure: 128/76 Pulse: 78 Respirations: 18 Pulse Ox (%): 94 - Physical Exam General: Alert, Oriented x3, Cooperative, Mild distress, Obese HEENT: Atraumatic, Normocephalic Neck: Supple, 2+ carotid pulse no bruit Respiratory: Clear to auscultation bilaterally, Normal air movement Cardiovascular: Regular rate/rhythm, Normal S1 S2 Capillary refill: <2 Seconds Gastrointestinal: Soft and benign, W/out hepatosplenomegaly, No tenderness, No masses Musculoskeletal: Swelling, Erythema, Tenderness Integumentary: Tenderness/swelling, Erythema, Warmth, Other (left lower extremity cellulitis ) Neurological: Normal speech, Normal strength at 5/5 x4 extr, Cranial nerves 3-12 intact, Normal reflexes 2+, Normal affect Lymphatics: No axilla or inguinal lymphadenopathy - Studies Laboratory Data (last 24 hrs) 01/01/24 01/01/24 01/01/24 02:52 02:52 02:52 WBC 15.70 H Hgb 11.5 L Hct 35.1 L Plt Count 308 PT 13.3 H INR 1.22 APTT 26.2 Sodium 133 L Potassium 3.5 BUN 15 Creatinine 0.75 Glucose 111 H Total Bilirubin 0.4 AST < 10 L ALT 18 Alkaline Phosphatase 106 Assessment and Plan - Problems (Diagnosis) (1) Cellulitis of left lower extremity Current Visit: No Status: Acute Plan: Left lower extremity cellulitis recurrent Pain control Started on IV antibiotic Will obtain cultures Change antibiotic as per sensitivity Hyponatremia Started on IV hydration Monitor electrolytes and replace accordingly Bipolar disorder Continue home medications Obesity Advise lifestyle modification GI/DVT prophylaxis Advanced directive full code Discharge Plan: Home Plan to discharge in: 48 Hours - Advance Directives Does patient have a Living Will: No Does patient have a Durable POA for Healthcare: No - Code Status/Comfort Care Code Status: Full Code Time Spent Managing Pts Care (In Minutes): 48
[2024-01-01] MEDS: NA CHLORIDE 0.9% 1,000 ML IV SCH (05:00)
[2024-01-01] MEDS ORDERED: NA CHLORIDE 0.9% 1,000 ML ONE (05:28)
[2024-01-01 05:34] VITALS: BMI 47.6
[2024-01-01] MEDS ORDERED: MORPHINE 2 MG/ML SYR IV PRN (05:42)
[2024-01-01] MEDS: VANCOMYCIN 1 GM in NA CHLORIDE 0.9% 250 ML IVPB SCH (05:43)
[2024-01-01] MEDS: VANCOMYCIN 1 GM in NA CHLORIDE 0.9% 250 ML IVPB ONE (06:30)
[2024-01-01] MEDS: ENOXAPARIN 40 MG/0.4 ML SQ SCH (09:00)
[2024-01-01] MEDS: CEFTRIAXONE 1,000 MG in NA CHLORIDE 0.9% 50 ML IVPB SCH (09:00)
[2024-01-01 09:06] LABS: Band Neutrophils 2 % (0-1); Blood Morphology Comment NOT SEEN (NOT SEEN); Differential Total Cells Count 100; Eosinophils 1 % (0-3); Lymphocytes 5 % (15-42); Monocytes 1 % (0-10); Platelet Estimate ADEQ; Platelets Clumped FEW; Segmented Neutrophils 91 % (40-80)
[2024-01-01] MEDS ORDERED: CEFTRIAXONE 1000 MG/VIAL ONE (09:53)
[2024-01-01] MEDS ORDERED: ENOXAPARIN 40 MG/0.4 ML SQ ONE (09:54)
[2024-01-01] MEDS: levoFLOXacin 750 MG TAB PO SCH (11:00)
--- NOTE | 2024-01-01 11:27 | RAD REPORT ---
EXAM DESCRIPTION: US - Extremity Venous Uni Ltd - 01/01/2024 6:07 am CLINICAL HISTORY: Left leg swelling COMPARISON: None. TECHNIQUE: Real-time sonographic evaluation of the left lower extremity deep venous system was perfo rmed. FINDINGS: Normal compressibility, flow augmentation, phasic flow and spontaneous flow is identified in the left lower extremity deep venous system. No intraluminal filling defects seen. Mild left lowe r leg subcutaneous edema. Few mildly prominent left groin lymph nodes. IMPRESSION: No DVT in the left lower extremity. Few mildly prominent left groin lymph nodes, most likely reactive.
[2024-01-01] MEDS ORDERED: levoFLOXacin 750 MG TAB ONE (11:49)
--- NOTE | 2024-01-01 14:10 | EKG ---
Test Date: 2024-01-01 Test Time: 03:08:21 Supervisor [employer]: MAYE MEASUREMENT RESULTS: Intervals: Rate: 105 MO: 124 QRSD: 86 QT: 346 QTc: 457 [place]: P: 69 MO: 124 QRS: 37 T: 61 INTERPRETIVE STATEMENTS: Sinus tachycardia Low voltage QRS Borderline ECG Compared to ECG 01/04/2023 15:57:09 Low QRS voltage now present Sinus rhythm no longer present Electronically Signed On 01-01-24 14:09:29 CDT by Pravin Garner
[2024-01-01] MEDS: HYDROCODONE/APAP 10/325 TAB PO PRN (15:48)
[2024-01-01] MEDS ORDERED: HYDROCODONE/APAP 10/325 TAB ONE (15:49)
[2024-01-01] MEDS: POTASSIUM CL SA 10 MEQ TAB PO ONE (16:55)
[2024-01-01] MEDS: VANCOMYCIN 2 GM in NA CHLORIDE 0.9% 500 ML IVPB SCH (16:55)
[2024-01-01 23:44] VITALS: O2SAT 96
[2024-01-02 03:46] LABS: Absolute Lymphocytes (CBC) 0.6 K/uL (0.7-4.9); Absolute Monocytes 0.2 K/uL (0.1-1.3); Absolute Neutrophil 7.5 K/uL (1.8-8.0); Basophils % 0.2 % (0-1.3); Eosinophils % 0.1 % (0-4.4); Hematocrit 33.1 % (36.0-45.0); Hemoglobin 11.1 g/dL (12.0-15.0); Lymphocytes % 7.5 % (15.3-44.8); MCH 28.6 pg (27.0-35.0); MCHC 33.6 g/dL (32.0-36.0); MCV 85.1 fL (80-100); MPV 7.3 fL (7.6-11.3); Monocytes % 2.9 % (3.3-12.3); Nucleated Red Blood Cells % 0.1 % (0-0); Platelets 229 thou/uL (152-406); RBC Red Blood Cell Count 3.88 M/uL (3.86-4.86); Red Cell Distribution Width 15.5 % (12.1-15.2)
[2024-01-02 03:56] LABS: Neutrophils % 89.3 % (41.7-73.7)
[2024-01-02 04:20] LABS: Albumin 2.5 g/dL (3.4-5.0); Albumin/Globulin Ratio 0.6 (1.1-1.8); Anion Gap 7.4 mEq/L (5.0-15.0); Bilirubin Total 0.5 mg/dL (0.2-1.0); Globulin 3.9 g/dL (2.3-3.5); Magnesium 1.7 mg/dL (1.6-2.4); Phosphorus 2.4 mg/dL (2.5-4.9); Potassium 3.4 mEq/L (3.5-5.1); Protein, Total 6.4 g/dL (6.4-8.2)
[2024-01-02] MEDS: MAGNESIUM SULFATE 1 gm IVPB 1 GM/100 ML BAG IV ONE (08:00)
[2024-01-02] MEDS: POTASS/SODIUM PHOSPHATE 1 PKT POWD.PACK PO SCH (08:00)
[2024-01-02] MEDS: POTASSIUM CL SA 10 MEQ TAB PO ONE (08:22)
--- NOTE | 2024-01-02 10:03 | P.PN ---
Subjective Date of Service: 01/02/24 Chief Complaint: Pain and swelling leg Subjective: Other (No change in her swelling and pain of her left foot still very red patient is ambulate) Review of Systems Unremarkable Physical Examination - Vital Signs Temperature: 97.4 F Blood Pressure: 100/53 Pulse: 81 Respirations: 18 Pulse Ox (%): 94 - Physical Exam General: Alert, In no apparent distress Respiratory: Clear to auscultation bilaterally Cardiovascular: No edema Gastrointestinal: Normal bowel sounds Musculoskeletal: Other (Patient has erythema and tenderness in the region of the left ankle) Assessment And Plan - Current Problems (Diagnosis) (1) Cellulitis of left lower extremity Current Visit: No Status: Acute Plan: Patient is 43 years of age admitted with recurrent cellulitis of the left lower extremity/no change in patient's condition although the white count is declining continue with present medications cultures are so far negative vital signs oxygenation satisfactory
[2024-01-02] MEDS ORDERED: MORPHINE 4 MG/ML SYR IV PRN (13:57)
[2024-01-02] MEDS: DIPHENHYDRAMINE 25 MG TAB/CAP PO PRN (22:46)
[2024-01-03 05:30] VITALS: TEMP 97
[2024-01-03 07:40] LABS: Anion Gap 3.8 mEq/L (5.0-15.0); Potassium 3.8 mEq/L (3.5-5.1)
[2024-01-03 07:51] LABS: Specific Gravity 1.013 (1.005-1.030); Sqamous Epithelial <5 /HPF (None Seen); Urine Bacteria None Seen /HPF (<20); Urine Bilirubin NEGATIVE (Negative); Urine Blood Negative (Negative); Urine Clarity Turbid (Clear); Urine Color Light-Yellow (Yellow); Urine Culture Reflex Order NOT NEEDED; Urine Glucose NEGATIVE (Negative); Urine Ketones NEGATIVE (Negative); Urine Microscopic Reflex YN ORDER UMIC; Urine Mucus Slight /HPF (None Seen); Urine Nitrite NEGATIVE (Negative); Urine Protein NEGATIVE (Negative); Urine RBC <5 /HPF (None Seen); Urine Urobilinogen Normal (Normal); Urine WBC None Seen /HPF (<5); Urine pH 6.5 (5.0-7.0)
--- NOTE | 2024-01-03 08:33 | P.DS ---
Admission Date: 01/01/24 Discharge Date: 01/03/24 Disposition: ROUTINE DISCHARGE Discharge Condition: FAIR Reason for Admission: Pain and swelling leg - Problems (1) Cellulitis of left lower extremity Current Visit: No Status: Acute Brief History of Present Illness: Patient is 43 years of age admitted with cellulitis of the left foot and the ankle area this is recurrent episodes Hospital Course: Patient was admitted to the hospital treated with IV vancomycin and levofloxacin did well her white count had normalized at the time of discharge patient was able to ambulate and redness has decreased cultures negative afebrile to follow- up with primary care physician in 2 weeks patient did not have any DVT Vital Signs/Physical Exam: Temp Pulse Resp BP Pulse Ox 97.0 F 89 18 117/65 96 01/03/24 04:00 01/03/24 04:00 01/03/24 04:00 01/03/24 04:00 01/03/24 04:00 Laboratory Data at Discharge: WBC 8.40 thou/uL (4.3-10.9) 01/02/24 03:27 Hgb 11.1 g/dL (12.0-15.0) L 01/02/24 03:27 Hct 33.1 % (36.0-45.0) L 01/02/24 03:27 Plt Count 229 thou/uL (152-406) 01/02/24 03:27 PT 13.3 SECONDS (9.5-12.5) H 01/01/24 02:52 INR 1.22 01/01/24 02:52 APTT 26.2 SECONDS (24.3-36.9) 01/01/24 02:52 Sodium 134 mEq/L (136-145) L 01/03/24 07:12 Potassium 3.8 mEq/L (3.5-5.1) 01/03/24 07:12 BUN 6 mg/dL (7-18) L 01/03/24 07:12 Creatinine 0.52 mg/dL (0.55-1.02) L 01/03/24 07:12 Glucose 105 mg/dL (74-106) 01/03/24 07:12 Phosphorus 3.0 mg/dL (2.5-4.9) 01/03/24 07:12 Magnesium 2.0 mg/dL (1.6-2.4) 01/03/24 07:12 Total Bilirubin 0.5 mg/dL (0.2-1.0) 01/02/24 03:27 AST 23 U/L (15-37) 01/02/24 03:27 ALT 29 U/L (13-56) 01/02/24 03:27 Alkaline Phosphatase 115 U/L (45-117) 01/02/24 03:27 Home Medications: Doxycycline Hyclate 100 mg PO BID 10 Days #20 tab 01/03/24 levoFLOXacin [Levaquin*] 750 mg PO DAILY #10 tab 01/03/24 New Medications: Doxycycline Hyclate 100 mg PO BID 10 Days #20 tab levoFLOXacin [Levaquin*] 750 mg PO DAILY #10 tab Physician Discharge Instructions: Patient to follow-up with primary care physician in 2 weeks prescriptions have been faxed to the pharmacy Diet: Regular Activity: Ad ian Followup: NONE,NONE [Primary Care Provider] -
[2024-01-03] MEDS: POTASSIUM CL SA 10 MEQ TAB PO ONE (09:33)
[2024-01-03 10:06] VITALS: BP 149/88
[2024-01-03] MEDS ORDERED: VANCOMYCIN 1.75 GM in NA CHLORIDE 0.9% 500 ML IVPB SCH (12:00)
== END 2024-01-03 10:07 | disposition home or self-care (01) | DRG 872 ==
LOC: ER 01:59 → ERHOLD 04:03 → 2ND 15:49
PROVIDERS: ADMIT Family Medicine; ATTEND Internal Medicine Sleep Medicine
DX: A41.9 Sepsis, unspecified organism (principal); L03.116 Cellulitis of left lower limb; Z68.42 Body mass index [BMI] 45.0-49.9, adult; E87.1 Hypo-osmolality and hyponatremia; E66.9 Obesity, unspecified; F31.9 Bipolar disorder, unspecified; Z60.2 Problems related to living alone; Z98.51 Tubal ligation status; Z79.899 Other long term (current) drug therapy
CPT/HCPCS: 36415; 80048; 80053; 80202; 81001; 83605; 83735; 84100; 85025; 85610; 85730; 87040; 93005; 93971; 96365; 96366; 96368; 99285; J0692; J0696; J1650; J3475; J7030; J7040; J7050

== ENCOUNTER 2024-02-05 19:47 | Observation (INO) | payer OTHER, SELFPAY ==
[2024-02-05] MEDS ORDERED: KETOROLAC 30 MG/ML INJ ONE (20:48)
[2024-02-05] MEDS ORDERED: methocarbamoL 750 MG TAB ONE (20:48)
[2024-02-05] MEDS ORDERED: ONDANSETRON 4 MG/2 ML VIAL ONE (20:48)
[2024-02-05] MEDS ORDERED: FAMOTIDINE 20 MG/2 ML VIAL IV ONE (20:49)
[2024-02-05] MEDS ORDERED: NA CHLORIDE 0.9% 1,000 ML ONE (20:49)
[2024-02-05] MEDS ORDERED: DICYCLOMINE HCL 20 MG/2 ML AMP IM ONE (20:49)
[2024-02-05] MEDS ORDERED: MORPHINE 4 MG/ML SYR ONE ×2 (20:49→23:36)
[2024-02-05 21:12] LABS: Absolute Basophils 0.1 K/uL (0-0.5); Absolute Lymphocytes (CBC) 1.2 K/uL (0.7-4.9); Absolute Monocytes 0.4 K/uL (0.1-1.3); Absolute Neutrophil 10.3 K/uL (1.8-8.0); Basophils % 0.6 % (0-1.3); Eosinophils % 0.3 % (0-4.4); Hematocrit 38.6 % (36.0-45.0); Hemoglobin 12.7 g/dL (12.0-15.0); Lymphocytes % 10.2 % (15.3-44.8); MCHC 32.9 g/dL (32.0-36.0); MCV 84.9 fL (80-100); MPV 7.4 fL (7.6-11.3); Monocytes % 3.5 % (3.3-12.3); Neutrophils % 85.4 % (41.7-73.7); Platelets 400 thou/uL (152-406); RBC Red Blood Cell Count 4.54 M/uL (3.86-4.86); Red Cell Distribution Width 14.7 % (12.1-15.2)
[2024-02-05 21:22] LABS: Specific Gravity > 1.030 (1.005-1.030); Sqamous Epithelial <5 /HPF (None Seen); Urine Bacteria None Seen /HPF (<20); Urine Bilirubin NEGATIVE (Negative); Urine Blood Trace (Negative); Urine Clarity Clear (Clear); Urine Color Light-Yellow (Yellow); Urine Culture Reflex Order NOT NEEDED; Urine Glucose NEGATIVE (Negative); Urine Ketones NEGATIVE (Negative); Urine Microscopic Reflex YN ORDER UMIC; Urine Mucus 1+ /HPF (None Seen); Urine Nitrite NEGATIVE (Negative); Urine Protein TRACE (Negative); Urine RBC <5 /HPF (None Seen); Urine Urobilinogen Normal (Normal); Urine WBC <5 /HPF (<5)
[2024-02-05 21:31] LABS: Albumin 3.5 g/dL (3.4-5.0); Albumin/Globulin Ratio 0.8 (1.1-1.8); Anion Gap 9.6 mEq/L (5.0-15.0); Bilirubin Total 0.3 mg/dL (0.2-1.0); Globulin 4.5 g/dL (2.3-3.5); Potassium 3.6 mEq/L (3.5-5.1)
[2024-02-05 21:52] LABS: Blood Morphology Comment NOT SEEN (NOT SEEN); Platelet Estimate ADEQ; White Blood Cell Scan OK (OK)
--- NOTE | 2024-02-05 22:20 | RAD REPORT ---
EXAM DESCRIPTION: CT - Abdomen Pelvis W Contrast - 02/05/2024 10:05 pm CLINICAL HISTORY: Abdominal pain COMPARISON: 2019 TECHNIQUE: Computed axial tomography of the abdomen pelvis was obtained. 100 cc Isovue-300 was admin istered intravenously. Oral contrast was not requested which limits evaluation of bowel and appendix All CT scans are performed using dose optimization technique as appropriate and may include automated exposure control or mA/KV adjustment according to patient size. FINDINGS: 16 millimeter low to intermediate density lesion right lobe liver unchanged likely benign Mild gallbladder distention. Increased density within the gallbladder. The spleen, pancreas and adrenals unremarkable. Mild renal cortical thinning bilaterally may secondary to prior inflammation. There is no evidence of diverticulitis. . No adnexal mass. Normal appendix. Small umbilical hernia IMPRESSION: Mild gallbladder distention. Increased density within the gallbladder may represent ston es. Ultrasound recommended
--- NOTE | 2024-02-06 01:00 | EDPHYS ---
Physician Documentation [facility] Name: Kandis Juan Age: 43 yrs Sex: Female : 1980 Arrival Date: 02/05/2024 Time: 19:47 Bed 5 Private MD: ED Physician Dave Rios HPI: 02/04 20:07 This 43 yrs old Female presents to ER via Unassigned with complaints of Low sp4 Back Pain. 21:56 43-year-old female presents with acute onset right lower back pain associated with sp4 nausea. Patient in moderate distress on arrival.. 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 - Infectious Disease History:: Denies. - Social history:: Smoking status: Patient reports the use of cigarette tobacco products, denies chronic smoking, but will smoke occasionally. - Family history:: not pertinent. ROS: 02/05 21:14 Constitutional: Negative for fever, chills, and weight loss, abdominal pain, positive sp4 for nausea, positive for right flank pain All other systems are negative, Exam: 21:14 Constitutional: This is a well developed, well nourished patient who is awake, alert, sp4 patient is in moderate distress secondary to pain Head/Face: Normocephalic, atraumatic. Eyes: Pupils equal round and reactive to light, extra-ocular motions intact. Lids and lashes normal. Conjunctiva and sclera are not injected. Cornea within normal limits. Periorbital areas with no swelling, redness, or edema. ENT: Nares patent. No nasal discharge, no septal abnormalities noted. Tympanic membranes are normal and external auditory canals are clear. Oropharynx with no redness, swelling, or masses, exudates, or evidence of obstruction, uvula midline. Mucous membranes moist. Neck: Trachea midline, no thyromegaly or masses palpated, and no cervical lymphadenopathy. Supple, full range of motion without nuchal rigidity, or vertebral point tenderness. Chest/axilla: Normal chest wall appearance and motion. Nontender with no deformity. No lesions are appreciated. Cardiovascular: Regular rate and rhythm with a normal S1 and S2. No gallops, murmurs, or rubs. Normal PMI, no JVD. No pulse deficits. Respiratory: Lungs have equal breath sounds bilaterally, clear to auscultation and percussion. No rales, rhonchi or wheezes noted. No increased work of breathing, no retractions or nasal flaring. Abdomen/GI: Soft, with normal bowel sounds. No distension or tympany. Obese abdomen, moderate right upper abdominal tenderness, moderate right flank tenderness, positive rebound sign. Ortega sign Back: No spinal tenderness. No costovertebral tenderness. Skin: Warm, dry with normal turgor. Normal color with no rashes, no lesions, and no evidence of cellulitis. MS/ Extremity: Pulses equal, no cyanosis. Neurovascular intact. Full, normal range of motion. Neuro: Awake and alert, GCS 15, oriented to person, place, time, and situation. Cranial nerves II-XII grossly intact. Motor strength 5/5 in all extremities. Sensory grossly intact. Psych: Awake, alert, with orientation to person, place and time. Behavior, mood, and affect are within normal limits Vital Signs: 02/04 20:11 BP 183 / 88; Pulse 105; Resp 22; Temp 97.7(O); Pulse Ox 98% on R/A; Weight 140.61 kg; tl4 Height 5 ft. 7 in. ; Pain 9/10; 21:21 BP 169 / 83; Pulse 71; Resp 14; Temp 97.7; Pulse Ox 99% on 2 lpm NC; Pain 0/10; bm8 22:21 BP 161 / 96; Pulse 74; Resp 17; Temp 97.8; Pulse Ox 100% on 2 lpm NC; Pain 0/10; bm8 23:45 BP 156 / 95; Pulse 71; Resp 16 S; Pulse Ox 98% on 2 lpm NC; jw7 02/05 02:01 BP 160 / 101; Pulse 68; Resp 17; Temp 98; Pulse Ox 100% ; Pain 0/10; bm8 07:30 BP 158 / 98; Pulse 74; Resp 16; Pulse Ox 99% ; ko1 02/04 20:11 Body Mass Index 48.55 (140.61 kg, 170.18 cm) tl4 02/04 20:11 Pain Scale: Adult tl4 21:21 Pain Scale: Adult bm8 22:21 Pain Scale: Adult bm8 02/05 02:01 Pain Scale: Adult bm8 [place] Coma Score: 02/04 21:21 Eye Response: spontaneous(4). Motor Response: obeys commands(6). Verbal Response: bm8 oriented(5). Total: 15. 22:21 Eye Response: spontaneous(4). Motor Response: obeys commands(6). Verbal Response: bm8 oriented(5). Total: 15. 02/05 02:01 Eye Response: spontaneous(4). Motor Response: obeys commands(6). Verbal Response: bm8 oriented(5). Total: 15. 21:14 Eye Response: spontaneous(4). Motor Response: obeys commands(6). Verbal Response: sp4 oriented(5). Total: 15. MDM: 02/04 20:08 Patient medically screened. sp4 02/05 00:49 ED course: EXAM DESCRIPTION: Abdomen Exam Limited CLINICAL HISTORY: 43 years Female ABD sp4 PAIN COMPARISON: None TECHNIQUE: Real-time sonography of the right upper abdomen was performed. FINDINGS: Echogenic focus with posterior shadowing is seen within the gallbladder with large gallstone. The largest gallstone measures 2.1 cm. Gallbladder wall measures 5 mm which is thickened. Common bile duct measures 4 mm which is within normal limits. No fluid is seen adjacent to the gallbladder. No hydronephrosis visualized right kidney. IMPRESSION: Cholelithiasis. Gallbladder wall thickening.. 21:14 Differential diagnosis: strain, fracture, sciatica, contusion, Herniated disc UTI. Data sp4 reviewed: vital signs, nurses notes, old medical records, lab test result(s), radiologic studies, CT scan, ultrasound. Consideration of Admission/Observation Patient was admitted/placed on observation. Escalation of care including admission/observation considered. Management of patient was discussed with the following: Hospitalist: Jerrell ÁLVAREZ . Electric Cell Tender: [facility] General surgery. 02/04 20:39 Order name: CBC with Diff; Complete Time: 23:02 sp4 02/04 20:39 Order name: CMP; Complete Time: 21:41 sp4 02/04 20:39 Order name: Lipase; Complete Time: 21:41 sp4 02/04 20:39 Order name: Test, Urine; Complete Time: 23:02 sp4 02/04 20:39 Order name: Urinalysis w/ reflexes; Complete Time: 21:41 sp4 02/04 21:52 Order name: CBC Smear Scan; Complete Time: 23:02 EDMS 02/05 01:27 Order name: CBC with Automated Diff EDMS 02/05 01:27 Order name: CBC with Automated Diff EDMS 02/05 01:27 Order name: Comprehensive Metabolic Panel EDMS 02/05 01:27 Order name: Comprehensive Metabolic Panel EDMS 02/05 01:27 Order name: Lipid Profile EDMS 02/05 01:27 Order name: Lipid Profile EDMS 02/04 20:39 Order name: CT Abd/Pelvis - IV Contrast Only; Complete Time: 23:02 sp4 02/04 23:03 Order name: US Abdomen Limited sp4 02/05 01:27 Order name: CONS Physician Consult EDSD 02/04 20:39 Order name: IV Saline Lock; Complete Time: 21:05 sp4 02/04 20:39 Order name: Labs collected and sent; Complete Time: 21:05 sp4 Administered Medications: 02/04 21:05 Drug: Dicyclomine IM 20 mg IM once Route: IM; Site: right vastus lateralis; bm8 22:20 Follow up: Response: No adverse reaction bm8 21:05 Drug: Methocarbamol PO 1500 mg PO once Route: PO; bm8 22:20 Follow up: Response: No adverse reaction bm8 21:06 Drug: NS 0.9% IV 1000 ml IV at 1 bolus Per protocol; 1000 mL bolus Route: IV; Rate: 1 bm8 bolus; Site: right forearm; 22:20 Follow up: Response: No adverse reaction; IV Status: Completed infusion; IV Intake: bm8 1000ml 21:06 Drug: Famotidine IVP 20 mg IVP once; dilute with 10 mL 0.9% NaCl; give over 2 minutes bm8 Route: IVP; Site: right forearm; 22:20 Follow up: Response: No adverse reaction bm8 21:06 Drug: TORadol - Ketorolac IVP 15 mg IVP once Route: IVP; Site: right forearm; bm8 22:21 Follow up: Response: No adverse reaction bm8 21:06 Drug: Ondansetron IVP 4 mg IVP once; over 2 minutes Route: IVP; Site: right forearm; bm8 22:20 Follow up: Response: No adverse reaction bm8 21:07 Drug: morphine IVP or IV 4 mg IVP once over 4 mins Route: IVP; Infused Over: 4 mins; bm8 Site: right forearm; 22:21 Follow up: Response: No adverse reaction bm8 23:40 Drug: morphine IVP or IV 4 mg IVP once over 4 mins Route: IVP; Infused Over: 4 mins; jw7 Site: right forearm; 02/05 02:02 Follow up: Response: No adverse reaction bm8 Disposition Summary: 02/06/24 00:59 Hospitalization Ordered Notes: Hospitalization Status: Observation sp4 Provider: Jerrell Marcial spRishabh Condition: Stable sp4 Problem: new sp4 Symptoms: have improved sp4 Bed/Room Type: Standard sp4 Location: Telemetry/MedSurg (observation)(02/06/24 07:10) 6 Room Assignment: 413(02/06/24 07:10) [facility] Diagnosis - Acute cholecystitis sp4 Forms: - Medication Reconciliation Form sp4 - SBAR form sp4 - Leadership Thank You Letter sp4 Signatures: Dispatcher [employer] Paula Hart, RN RN ss Beth Andres RN RN jw7 Brissa Gonzalez 6 Dave Rios MD MD sp4 Aubrey Canas RN RN tl4 Guille Abraham RN RN bm8 Corrections: (The following items were deleted from the chart) 02/04 20:40 20:40 CBC+H.LAB.BRZ ordered. EDMS EDMS 20:40 20:40 COMPREHENSIVE METABOLIC PANEL+C.LAB.BRZ ordered. EDMS EDMS 20:40 20:40 LIPASE+C.LAB.BRZ ordered. EDMS EDMS 20:40 20:40 Test, Urine+UC.LAB.BRZ ordered. EDMS EDMS 20:40 20:40 Urinalysis+U.LAB.BRZ ordered. EDMS EDMS 20:40 20:40 Abdomen Pelvis W Con+CT.RAD.BRZ ordered. EDMS EDMS 02/05 03:25 00:59 Telemetry/MedSurg (observation) sp4 ss 03:25 00:59 sp4 ss 07:10 03:25 [facility] ER HOLD ss bc6 07:10 03:25 ERHOLD- ss bc6
--- NOTE | 2024-02-06 01:00 | ER ---
Nurse's Notes [facility] Name: Kandis Juan Age: 43 yrs Sex: Female : 1980 Arrival Date: 02/05/2024 Time: 19:47 Bed 5 Private MD: Diagnosis: Acute cholecystitis Presentation: 02/04 20:11 Chief complaint: Patient states: Pt c/o middle right side back pain that radiates into tl4 right upper abdomen all day. No relief with Tylenol this morning. Pt also c/o 'hot flashes'. Coronavirus screen: At this time, the client does not indicate any symptoms associated with coronavirus-19. Ebola Screen: No symptoms or risks identified at this time. Initial Sepsis Screen: Does the patient meet any 2 criteria? No. Patient's initial sepsis screen is negative. Does the patient have a suspected source of infection? No. Patient's initial sepsis screen is negative. Risk Assessment: Do you want to hurt yourself or someone else? Patient reports no desire to harm self or others. Onset of symptoms was February 05, 2024. 20:11 Method Of Arrival: EMS: [facility] tl4 20:11 Acuity: RONNY 3 tl4 Triage Assessment: 20:14 General: Appears uncomfortable, Behavior is cooperative. Pain: Complains of pain in tl4 back and abdomen. EENT: No signs and/or symptoms were reported regarding the EENT system. Neuro: Level of Consciousness is awake, alert, obeys commands, Oriented to person, place, time, situation. Cardiovascular: Capillary refill < 3 seconds skin warm, clammy. Respiratory: Airway is patent Respiratory effort is even, unlabored, Respiratory pattern is regular, symmetrical. GI: Reports upper abdominal pain, nausea. : No signs and/or symptoms were reported regarding the genitourinary system. Derm: No signs and/or symptoms reported regarding the dermatologic system. Musculoskeletal: No signs and/or symptoms reported regarding the musculoskeletal system. 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 - Infectious Disease History:: Denies. - Social history:: Smoking status: Patient reports the use of cigarette tobacco products, denies chronic smoking, but will smoke occasionally. - Family history:: not pertinent. Screenin:21 [facility] ED Fall Risk Assessment (Adult) History of falling in the last 3 months, bm8 including since admission No falls in past 3 months (0 pts) Confusion or Disorientation No (0 pts) Intoxicated or Sedated No (0 pts) Impaired Gait No (0 pts) Mobility Assist Device Used No (0 pt) Altered Elimination No (0 pt) Score/Fall Risk Level 0 - 2 = Low Risk Oriented to surroundings, Maintained a safe environment, Educated pt \T\ family on fall prevention, incl call for assistance when getting out of bed, Assessed \T\ reinforced patient's understanding of fall precautions, Hourly rounding (assess needs \T\ fall precautionary measures) done. Abuse screen: Denies threats or abuse. Nutritional screening: No deficits noted. Tuberculosis screening: No symptoms or risk factors identified. Assessment: 20:44 Reassessment: Pt ambulated to restroom with steady gait to provide urine specimen. ss 21:21 Reassessment: pt appears to be opiod naive. placed on 2l NC Patient denies pain at this bm8 time. Patient states feeling better. General: Appears in no apparent distress. comfortable, Behavior is listless. Pain: Denies pain. Neuro: Level of Consciousness is awake, alert, obeys commands, Oriented to person, place, time, situation, Appropriate for age. Respiratory: Respiratory effort is weak, pt placed on on 2 L nc after O2 sat dropped to 80, pt responded very well and O2 sat jumped back up to 99%. 22:21 Reassessment: Patient appears in no apparent distress at this time. No changes from bm8 previously documented assessment. Patient and/or family updated on plan of care and expected duration. Pain level reassessed. Patient is alert, oriented x 3, equal unlabored respirations, skin warm/dry/pink. 23:45 Reassessment: Patient appears in no apparent distress at this time. No changes from jw7 previously documented assessment. Patient and/or family updated on plan of care and expected duration. Pain level reassessed. Patient is alert, oriented x 3, equal unlabored respirations, skin warm/dry/pink. 02/05 02:01 Reassessment: Patient appears in no apparent distress at this time. No changes from bm8 previously documented assessment. Patient and/or family updated on plan of care and expected duration. Pain level reassessed. Patient is alert, oriented x 3, equal unlabored respirations, skin warm/dry/pink. Patient denies pain at this time. Patient states feeling better. Vital Signs: 02/04 20:11 BP 183 / 88; Pulse 105; Resp 22; Temp 97.7(O); Pulse Ox 98% on R/A; Weight 140.61 kg; tl4 Height 5 ft. 7 in. ; Pain 9/10; 21:21 BP 169 / 83; Pulse 71; Resp 14; Temp 97.7; Pulse Ox 99% on 2 lpm NC; Pain 0/10; bm8 22:21 BP 161 / 96; Pulse 74; Resp 17; Temp 97.8; Pulse Ox 100% on 2 lpm NC; Pain 0/10; bm8 23:45 BP 156 / 95; Pulse 71; Resp 16 S; Pulse Ox 98% on 2 lpm NC; jw7 02/05 02:01 BP 160 / 101; Pulse 68; Resp 17; Temp 98; Pulse Ox 100% ; Pain 0/10; bm8 07:30 BP 158 / 98; Pulse 74; Resp 16; Pulse Ox 99% ; ko1 02/04 20:11 Body Mass Index 48.55 (140.61 kg, 170.18 cm) tl4 02/04 20:11 Pain Scale: Adult tl4 21:21 Pain Scale: Adult bm8 22:21 Pain Scale: Adult bm8 02/05 02:01 Pain Scale: Adult bm8 [place] Coma Score: 02/04 21:21 Eye Response: spontaneous(4). Motor Response: obeys commands(6). Verbal Response: bm8 oriented(5). Total: 15. 22:21 Eye Response: spontaneous(4). Motor Response: obeys commands(6). Verbal Response: bm8 oriented(5). Total: 15. 02/05 02:01 Eye Response: spontaneous(4). Motor Response: obeys commands(6). Verbal Response: bm8 oriented(5). Total: 15. 21:14 Eye Response: spontaneous(4). Motor Response: obeys commands(6). Verbal Response: sp4 oriented(5). Total: 15. ED Course: 02/04 20:01 Patient arrived in ED. mr 20:07 Wellington Kern PA is PHCP. cp 20:07 Dave Rios MD is Attending Physician. cp 20:14 Triage completed. tl4 20:16 Arm band placed on right wrist. tl4 20:42 Guille Abraham, RN is Primary Nurse. bm8 21:19 Radiology exam delayed due to lab results not completed at this time. (BUN/Creatinine). nj 21:21 Patient has correct armband on for positive identification. Bed in low position. Call bm8 light in reach. Side rails up X2. Client placed on continuous cardiac and pulse oximetry monitoring. NIBP monitoring applied. nuclear monitoring technician on. Pulse ox on. NIBP on. Door closed. Noise minimized. Warm blanket given. Verbal reassurance given. 21:21 No provider procedures requiring assistance completed. Initial lab(s) drawn, by sheela boone sent to lab. Urine collected: clean catch specimen, cloudy. Inserted saline lock: 22 gauge in right forearm, using aseptic technique. Blood collected. 21:28 Oxygen administration via nasal cannula \T\ 2L/min Response to oxygen therapy: symptoms bm8 improved. 22:00 Provided Education on: Use of Call Light. jw7 22:07 CT Abd/Pelvis - IV Contrast Only In Process Unspecified. EDMS 23:26 US Abdomen Limited In Process Unspecified. EDMS 07 00:59 Jerrell Marcial MD is Hospitalizing Provider. sp4 05:35 Patient admitted, IV remains in place. jw7 Administered Medications: 02/04 21:05 Drug: Dicyclomine IM 20 mg IM once Route: IM; Site: right vastus lateralis; bm8 22:20 Follow up: Response: No adverse reaction bm8 21:05 Drug: Methocarbamol PO 1500 mg PO once Route: PO; bm8 22:20 Follow up: Response: No adverse reaction bm8 21:06 Drug: NS 0.9% IV 1000 ml IV at 1 bolus Per protocol; 1000 mL bolus Route: IV; Rate: 1 bm8 bolus; Site: right forearm; 22:20 Follow up: Response: No adverse reaction; IV Status: Completed infusion; IV Intake: bm8 1000ml 21:06 Drug: Famotidine IVP 20 mg IVP once; dilute with 10 mL 0.9% NaCl; give over 2 minutes bm8 Route: IVP; Site: right forearm; 22:20 Follow up: Response: No adverse reaction bm8 21:06 Drug: TORadol - Ketorolac IVP 15 mg IVP once Route: IVP; Site: right forearm; bm8 22:21 Follow up: Response: No adverse reaction bm8 21:06 Drug: Ondansetron IVP 4 mg IVP once; over 2 minutes Route: IVP; Site: right forearm; bm8 22:20 Follow up: Response: No adverse reaction bm8 21:07 Drug: morphine IVP or IV 4 mg IVP once over 4 mins Route: IVP; Infused Over: 4 mins; bm8 Site: right forearm; 22:21 Follow up: Response: No adverse reaction bm8 23:40 Drug: morphine IVP or IV 4 mg IVP once over 4 mins Route: IVP; Infused Over: 4 mins; jw7 Site: right forearm; 02/05 02:02 Follow up: Response: No adverse reaction bm8 Medication: 02/04 21:21 VIS not applicable for this client. bm8 Intake: 22:20 IV: 1000ml; Total: 1000ml. bm8 Outcome: 02/05 00:59 Decision to Hospitalize by Provider. sp4 05:35 Admitted to ER Hold. Please see [facility] for further documentation. jw7 05:35 Condition: stable 05:35 Instructed on the need for admit, Demonstrated understanding of instructions, 07:30 Admitted to Med/surg accompanied by tech, via wheelchair, room 413, with chart, ko1 08:03 Patient left the ED. ko1 Signatures: Dispatcher [employer] EDVA PickardLeslie, Reg Reg mr Paula Preciado, RN RN Wellington Olson PA PA cp Jordan, Nathan nj Waits, Jodi, RN RN jw7 Deb Quijano RN RN ko1 Dave Rios MD MD sp4 Aubrey Canas RN RN tl4 Abraham, Guille, RN RN bm8
--- NOTE | 2024-02-06 01:22 | P.HP ---
Certification for Inpatient Patient admitted to: Observation With expected LOS: <2 Midnights Patient will require the following post-hospital care: None Practitioner: I am a practitioner with admitting privileges, knowledge of patient current condition, hospital course, and medical plan of care. Services: Services provided to patient in accordance with Admission requirements found in Title 42 Section 412.3 of the Code of Federal Regulations Patient History Date of Service: 02/06/24 Reason for admission: Abdominal pain History of Present Illness: 54-year-old with past medical history of bipolar disorder presenting because of bee sting right upper quadrant abdominal pain since the last 1 day. Symptoms has been persistent and not resolving. Patient rates pain at about 8-10 out of 10. She admits to some nausea but no vomiting. She denies any diarrhea. She admits to some increased warmth feeling and hot flashes. She denies any headache or dizziness. She denies any cough or shortness of breath. On arrival in the ED vital signs were stable except for elevated blood pressure, laboratory workup showed WBC of 30,000 with right shift, BMP was unremarkable. Urinalysis was unremarkable. CT of the abdomen and pelvics showsIMPRESSION: Mild gallbladder distention. Increased density within the gallbladder may represent stones. Surgery with Dr. Hutchinson has been discussed with. Patient will be admitted for possible acute cholecystitis. Allergies No Known Allergies Allergy (Unverified 12/09/22 02:22) Home Medications: Doxycycline Hyclate 100 mg PO BID 10 Days #20 tab 01/03/24 levoFLOXacin [Levaquin*] 750 mg PO DAILY #10 tab 01/03/24 - Past Medical/Surgical History Diabetic: No -: Bipolar Disorder -: Recurrent cellulitus LLE -: eczema -: -: Left tibia repair Psychosocial/ Personal History: Patient lives at home alone. - Social History Smoking Status: Never smoker Smoking therapy provided: No Patient receptive to therapy: No Alcohol use: Yes CD- Drugs: No Caffeine use: Yes Place of Residence: Home Review of Systems General: Chills Gastrointestinal: Nausea, Abdominal Pain Physical Examination - Physical Exam General: Alert, In no apparent distress, Oriented x3 HEENT: Atraumatic, Normocephalic Neck: Supple, 2+ carotid pulse no bruit, JVD not distended Respiratory: Clear to auscultation bilaterally, Normal air movement Cardiovascular: Normal pulses, Regular rate/rhythm, Normal S1 S2 Gastrointestinal: Normal bowel sounds, Non-distended, No ascites, Tenderness (Right upper quad) Musculoskeletal: No clubbing, No swelling Integumentary: No significant lesion, No tenderness/swelling Neurological: Normal speech, Normal strength at 5/5 x4 extr, Sensation intact, Cranial nerves 3-12 intact External genitalia: No edema, No lesions - Studies Laboratory Data (last 24 hrs) 02/05/24 02/05/24 21:00 21:00 WBC 12.00 H Hgb 12.7 Hct 38.6 Plt Count 400 Sodium 135 L Potassium 3.6 BUN 13 Creatinine 0.69 Glucose 119 H Total Bilirubin 0.3 AST 15 ALT 20 Alkaline Phosphatase 118 H Lipase 15 Assessment and Plan - Problems (Diagnosis) (1) Acute cholecystitis Current Visit: Yes Status: Acute - Plan Impression Acute cholecystitis Bipolar disorder History of eczema Plan Will admit to observation IV pain medication Start empirical antibiotics with cefepime/Flagyl Follow abdominal ultrasound Keep n.p.o. Antiemetic as needed Follow surgery consult in a.m. Subcutaneous Lovenox for DVT prophylaxis Full code Expect hospital stay for 24 to 48 hours Discharge Plan: Home - Advance Directives Does patient have a Living Will: No Does patient have a Durable POA for Healthcare: No Physician Review: Patient Assessed, Agree with Above Assessment and Plan Time Spent Managing Pts Care (In Minutes): 67
[2024-02-06] MEDS ORDERED: HYDRALAZINE HCL 20 MG/ML VIAL IV PRN (01:24)
[2024-02-06] MEDS ORDERED: KETOROLAC 30 MG/ML INJ IV PRN (01:26)
[2024-02-06] MEDS ORDERED: ONDANSETRON 4 MG/2 ML VIAL IV PRN (05:00)
[2024-02-06 05:46] VITALS: BMI 48.4
[2024-02-06] MEDS: D5 0.9 NS 1,000 ML IV SCH (06:00)
[2024-02-06] MEDS ORDERED: D5 0.9 NS 1,000 ML IV ONE (06:03)
[2024-02-06] MEDS: IPRATROPIUM BROM 0.5MG/2.5ML NEB SCH (08:19)
[2024-02-06] MEDS: ENOXAPARIN 40 MG/0.4 ML SQ SCH (09:00)
[2024-02-06] MEDS: METRONIDAZOLE 500mg IVPB 500 MG/100 ML BAG IV SCH (09:11)
[2024-02-06] MEDS: CEFEPIME 1 GM in NA CHLORIDE 0.9% 100 ML IV SCH (09:11)
[2024-02-06] MEDS: FAMOTIDINE 20 MG/2 ML VIAL IV SCH (09:12)
[2024-02-06] MEDS: MORPHINE 2 MG/ML SYR IV PRN (09:26)
--- NOTE | 2024-02-06 11:14 | P.PN ---
Date of Service: 02/06/24 Pt seen and examined. Pt is a 43 yo female with past medical history of eczema and bipolar disorder who presents with RUQ abd pain. A/P: Acute cholecystitis: Will continue cefepime and flagyl. F/u blood cx. Consulted Gen surgeon. Abd ultrasound shows gallstones Bipolar disorder: Continue home med History of eczema: stable. Morbid Obesity; Pt was advised to lose weight. DVT ppx: lovenox Code: Full code Dispo: Pending hospital course
[2024-02-06] MEDS ORDERED: MIDAZOLAM HCL 2 MG/2 ML INJ ONE (11:45)
[2024-02-06] MEDS ORDERED: FENTANYL CITR 100 MCG/2 ML ONE ×2 (11:45→13:08)
[2024-02-06] MEDS ORDERED: ROCURONIUM 50 MG/5 ML VIAL IV ONE ×2 (11:45→13:12)
[2024-02-06] MEDS ORDERED: LIDOCAINE 2% MPF 5 ML VIAL ONE (11:45)
[2024-02-06] MEDS ORDERED: ONDANSETRON 4 MG/2 ML VIAL ONE (11:45)
[2024-02-06] MEDS ORDERED: propofoL 200 MG/20 ML VIAL IV ONE (11:45)
[2024-02-06] MEDS ORDERED: SUCCINYLCHOLINE 20 MG/ML (10 ML) IV ONE (11:50)
[2024-02-06] MEDS ORDERED: SUGAMMADEX SODIUM 200 MG/2 ML VIAL IV ONE (11:50)
--- NOTE | 2024-02-06 12:42 | P.HP ---
Date of Service: 02/06/24 PC: This patient presented to emergency room with severe right upper quadrant abdominal pain for diagnosis and treatment. HPC: Patient has been having right upper quadrant abdominal pain off and on for the last few years. Has been seen in various emergency rooms. Recently moved to [place]. Now says the pain is severe, going rating into her back. PSHx: Negative PMHx: 4 para 4 Social Hx: No known allergies Sys R: No cough, wheeze, shortness of chest pain or palpitations. Denies any urinary complaints O/E: Awake alert vital signs are stable HEENT: Not jaundiced Chest: Chest movement equal bilaterally Abd: Tender in the right upper quadrant Greene: Intact Data: Has documented cholecystitis, elevated white cell count Impression: Cholecystitis with biliary colic Plan: I will take to the operating room for laparoscopic possible open cholecystectomy with a cholangiogram. The risks of this procedure have been discussed. The possibility of bleeding, infection, injury to bile ducts blood vessels and intestines has been described. The possible need for an open and/or further surgeries and procedures was discussed. She understands and wants us to proceed.,
--- NOTE | 2024-02-06 13:59 | RAD REPORT ---
EXAM DESCRIPTION: US - Abdomen Exam Limited - 02/05/2024 11:24 pm CLINICAL HISTORY: 43 years Female ABD PAIN COMPARISON: None TECHNIQUE: Real-time sonography of the right upper abdomen was performed. FINDINGS: Echogenic focus with posterior shadowing is seen within the gallbladder with large gallsto ne. The largest gallstone measures 2.1 cm. Gallbladder wall measures 5 mm which is thickened. Common bile duct measures 4 mm which is within normal limits. No fluid is seen adjacent to the gallbladder. No hydronephrosis visualized right kidney. IMPRESSION: Cholelithiasis. Gallbladder wall thickening. Electronically signed by: Janice Tinoco MD 02/05/2024 11:45 PM CDT RP Due to temporary technical issues with the PACS/Fluency reporting system, reports are being signed by the in house radiologist without review as a courtesy to ensure prompt reporting. The interpreting r adiologist is fully responsible for the content of the report.
[2024-02-06] MEDS ORDERED: KETOROLAC 30 MG/ML INJ ONE (14:18)
--- NOTE | 2024-02-06 14:36 | P.OP ---
Preoperative diagnosis: Acute on chronic cholecystitis with cholelithiasis, biliary colic Postoperative diagnosis: The same with umbilical hernia Primary procedure: Laparoscopic cholecystectomy Secondary procedure: Cholangiogram Anesthesia: General Estimated blood loss: Less than 50 cc Specimen: 1 gallbladder and contents Operative Technique: Patient brought the operating room placed supine on the table. After the induction of adequate general endotracheal anesthesia, the area of the abdomen was prepped with a DuraPrep solution, and she was draped in the usual aseptic manner. A subumbilical incision was made. This is brought down through the skin and subcutaneous tissue. The Visiport was used to enter the peritoneal cavity and created pneumoperitoneum to approximately 12 mmHg. Under direct vision a 5 mm trocar was placed in the upper midline and 2 other 5 mm trocars on the right lateral side of the abdomen. With the patient placed in reverse Trendelenburg and the table airplane to the left were able to visualize the right upper quadrant. We could see a markedly distended and chronically inflamed gallbladder. It was necessary to aspirate his contents so we can place a grasper on the fundus. Having done that we were able to placement also down by Merchant's pouch. Applying lateral traction on this fact covered gallbladder was carefully dissected to expose both the cystic duct and artery. Having obtained the critical view and applying lateral traction we were now able to place a clip between the gallbladder and the cystic duct. An opening was made into the cystic duct through which we obtained a normal intraoperative cholangiogram the cholangiogram demonstrated good flow of contrast into the duodenum, no filling defects were seen. The catheter was now removed. Clips were placed on the distal portion of the cystic duct which was now transected. The cystic artery was identified and clipped and divided. The gallbladder now was dissected free from the liver bed. This area showed a lot of chronic fibrotic tissue and in the area. There was also a lot of edema between the gallbladder and the actual thickened fluid itself. The gallbladder was finally dissected off the gallbladder bed, placed into an Endo Catch and brought up to the umbilical trocar site at this point it was necessary to open up this area as the stone was so large we could not get it to exit the peritoneal cavity and assuring our usual maneuvers. The fascia was divided for about three quarters of an inch. We were finally able to pull the gallbladder from the peritoneal cavity. At this point the patient also had had prior umbilical hernia in this area. We were now able to place 5 sutures using the Endo Close to pull the fascia back together again. This having been done the abdomen was inspected to ensure adequate hemostasis. The right upper quadrant was irrigated with a copious amount of a saline solution and the effluent aspirated from the peritoneal ca vity. At this point the pneumoperitoneum was collapsed, the trocars removed, and david applied to the skin. At the end of the procedure she was stable and sent to the recovery room. Needle sponge instrument count were correct. No drains were placed. Transferred to: Recovery Room Condition: Good
[2024-02-06] MEDS ORDERED: MORPHINE 4 MG/ML SYR IV PRN (14:42)
--- NOTE | 2024-02-06 14:57 | RAD REPORT ---
EXAM DESCRIPTION: RAD - Cholangiogram Oper-Xray Or - 02/06/2024 2:50 pm CLINICAL HISTORY: LAP FLORINA W/ IOC COMPARISON: <Comparisons> FINDINGS: Intraoperative cholangiogram was performed. Contrast injection was performed by operating surgeon. Common bile duct is normal caliber. There is no evidence of retained common duct stone. Total fluoro time: 0.3 minutes IMPRESSION: No evidence of retained common duct stone.
[2024-02-07] MEDS: HYDROCODONE/APAP 7.5/325 MG TAB PO PRN (08:16)
[2024-02-07 08:55] VITALS: O2SAT 96
[2024-02-07 09:43] LABS: Absolute Monocytes 0.5 K/uL (0.1-1.3); Absolute Neutrophil 8.5 K/uL (1.8-8.0); Basophils % 0.1 % (0-1.3); Eosinophils % 0.1 % (0-4.4); Hematocrit 31.7 % (36.0-45.0); Hemoglobin 10.5 g/dL (12.0-15.0); Lymphocytes % 10.3 % (15.3-44.8); MCH 28.7 pg (27.0-35.0); MCHC 33.3 g/dL (32.0-36.0); MCV 86.1 fL (80-100); MPV 7.5 fL (7.6-11.3); Monocytes % 5.2 % (3.3-12.3); Neutrophils % 84.3 % (41.7-73.7); Platelets 363 thou/uL (152-406); RBC Red Blood Cell Count 3.68 M/uL (3.86-4.86); Red Cell Distribution Width 14.9 % (12.1-15.2)
[2024-02-07 09:52] LABS: Anion Gap 5.7 mEq/L (5.0-15.0); Potassium 3.7 mEq/L (3.5-5.1)
--- NOTE | 2024-02-07 11:24 | P.PN ---
Subjective Date of Service: 02/07/24 Chief Complaint: Abdominal pain Pt is resting comfortably in bed. She complains of pain over the surgical sites. s/p Lap chol. POD #1. No other complaints. Review of Systems General: Unremarkable Eyes: Unremarkable ENT: Unremarkable Respiratory: Unremarkable Cardiovascular: Unremarkable Gastrointestinal: Unremarkable Genitourinary: Unremarkable Musculoskeletal: Unremarkable Integumentary: Unremarkable Neurological: Unremarkable Lymphatics: Unremarkable Physical Examination - Vital Signs Temperature: 96.7 F Blood Pressure: 141/67 Pulse: 91 Respirations: 18 Pulse Ox (%): 96 - Physical Exam General: Alert, In no apparent distress, Oriented x3 HEENT: Atraumatic, Normocephalic, PERRLA Neck: Supple, 2+ carotid pulse no bruit Respiratory: Clear to auscultation bilaterally, Normal air movement Cardiovascular: No edema, Normal pulses, Regular rate/rhythm, Normal S1 S2 Capillary refill: <2 Seconds Gastrointestinal: Normal bowel sounds, Soft and benign, Non-distended Musculoskeletal: No clubbing, No swelling, No contractures Integumentary: No rashes, No breakdown, No significant lesion Neurological: Normal gait, Normal speech, Normal strength at 5/5 x4 extr, Normal tone Lymphatics: No axilla or inguinal lymphadenopathy Assessment And Plan - Plan Acute cholecystitis: Abd ultrasound shows gall stones. Will continue cefepime and flagyl. POD #1. F/u blood cx. Continue prn pain med. Bipolar disorder: Continue home med History of eczema: stable. Morbid Obesity; Pt was advised to lose weight. DVT ppx: lovenox Code: Full code Dispo: Pending hospital course. Will dc once cleared by Gen surgeon. Physician Review: Patient Assessed, Agree with Above Assessment and Plan
[2024-02-07 16:39] VITALS: BP 116/54; TEMP 97.2
--- NOTE | 2024-02-07 17:08 | P.DS ---
Admission Date: 02/06/24 Discharge Date: 02/07/24 Disposition: ROUTINE DISCHARGE Discharge Condition: GOOD Reason for Admission: Abdominal pain Brief History of Present Illness: 54-year-old with past medical history of bipolar disorder presenting because of bee sting right upper quadrant abdominal pain since the last 1 day. Symptoms has been persistent and not resolving. Patient rates pain at about 8-10 out of 10. She admits to some nausea but no vomiting. She denies any diarrhea. She admits to some increased warmth feeling and hot flashes. She denies any headache or dizziness. She denies any cough or shortness of breath. On arrival in the ED vital signs were stable except for elevated blood pressure, laboratory workup showed WBC of 30,000 with right shift, BMP was unremarkable. Urinalysis was unremarkable. CT of the abdomen and pelvics showsIMPRESSION: Mild gallbladder distention. Increased density within the gallbladder may represent stones. Surgery with Dr. Hutchinson has been discussed with. Patient will be admitted for possible acute cholecystitis. Hospital Course: Pt is a 54yo male with past medical history of bipolar disorder and morbid obesity who presented with right upper quadrant abdominal pain for 1 day. The abdominal pain persisted and progressively worsened. On admission, lab studies showed WBC of 30,000 with right shift, BMP was unremarkable. Urinalysis was unre markable. CT of the abdomen and pelvis showed mild gallbladder distention. Increased density within the gallbladder may represent stones. Dr. Hutchinson evaluated pt and took her to the OR for possible acute cholecystitis. We continued cefepime and flagyl. Pt did well post-op and we continued prn pain med. Gen surgery cleared him for discharge. Pt was in NAD prior to discharge. Vital Signs/Physical Exam: Temp Pulse Resp BP Pulse Ox 97.2 F 91 H 17 116/54 L 95 02/07/24 16:00 02/07/24 16:00 02/07/24 16:00 02/07/24 16:02/07/24 16:00 General: Alert, In no apparent distress, Oriented x3, Obese HEENT: Atraumatic, Normocephalic, PERRLA Neck: Supple, 2+ carotid pulse no bruit, JVD not distended Respiratory: Clear to auscultation bilaterally, Normal air movement Cardiovascular: No edema, Normal pulses, Regular rate/rhythm, Normal S1 S2 Capillary refill: <2 Seconds Gastrointestinal: Normal bowel sounds, Soft and benign, Non-distended, Tenderness Musculoskeletal: No clubbing, No swelling, No contractures Integumentary: No rashes, No breakdown, No significant lesion Neurological: Normal gait, Normal speech, Normal strength at 5/5 x4 extr, Normal tone Lymphatics: No axilla or inguinal lymphadenopathy Laboratory Data at Discharge: WBC 10.10 thou/uL (4.3-10.9) 02/07/24 09:22 Hgb 10.5 g/dL (12.0-15.0) L 02/07/24 09:22 Hct 31.7 % (36.0-45.0) L 02/07/24 09:22 Plt Count 363 thou/uL (152-406) 02/07/24 09:22 Sodium 138 mEq/L (136-145) 02/07/24 09:22 Potassium 3.7 mEq/L (3.5-5.1) 02/07/24 09:22 BUN 12 mg/dL (7-18) 02/07/24 09:22 Creatinine 0.68 mg/dL (0.55-1.02) 02/07/24 09:22 Glucose 105 mg/dL (74-106) 02/07/24 09:22 Total Bilirubin 0.3 mg/dL (0.2-1.0) 02/05/24 21:00 AST 15 U/L (15-37) 02/05/24 21:00 ALT 20 U/L (13-56) 02/05/24 21:00 Alkaline Phosphatase 118 U/L (45-117) H 02/05/24 21:00 Lipase 15 U/L (13-75) 02/05/24 21:00 Home Medications: Hydrocodone 10/APAP 325 [[place] 10/325] 1 tab PO Q4H PRN 4 Days #24 tab 02/07/24 New Medications: Hydrocodone 10/APAP 325 [[place] 10/325] 1 tab PO Q4H PRN 4 Days #24 tab PRN Reason: Pain Physician Discharge Instructions: Continue ad ian activity. Take norco as prescribed. Follow up with PCP and Dr. Hutchinson in clinic within 1 - 2 weeks. Diet: AHA Activity: Ad ian Followup: Jasper,Antwon P, MD [ACTIVE - CAN ADMIT] - 1-2 Weeks (call to schedule an appointment) NONE,NONE [Primary Care Provider] - 1-2 Weeks (call to schedule an appointment)
--- NOTE | 2024-02-07 17:27 | P.PN ---
Date of Service: 02/07/24 S: Patient feels better today, just having some periumbilical pain. Presenting complaint is gone. O: Wounds are clean A: Surgically stable P: Discharge home
== END 2024-02-07 18:41 | disposition home or self-care (01) ==
LOC: ER 19:47 → ERHOLD 02-06 01:22 → UNDOADMOB 02-06 04:20 → ERHOLD 02-06 04:20 → 4TH 02-06 07:33
PROVIDERS: ADMIT Internal Medicine; ATTEND Hospitalist
PROC: BF10YZZ Fluoroscopy of Bile Ducts using Other Contrast (ICD-10-PCS; 2024-02-06)
PROC: 0FT44ZZ Resection of Gallbladder, Percutaneous Endoscopic Approach (ICD-10-PCS; principal; 2024-02-06 12:00)
DX: K80.12 Calculus of gallbladder with acute and chronic cholecystitis without obstruction (principal); F31.9 Bipolar disorder, unspecified; K42.9 Umbilical hernia without obstruction or gangrene; E66.01 Morbid (severe) obesity due to excess calories; Z68.42 Body mass index [BMI] 45.0-49.9, adult; Z71.3 Dietary counseling and surveillance
CPT/HCPCS: 36415; 74177; 74300; 76705; 80048; 80053; 81001; 81025; 83690; 85025; 88304; 96361; 96372; 96374; 96375; 99285; J0500; J0692; J1650; J2001; J2250; J2270; J2405; J2704; J3010; J7030; J7042; J7644; Q9967